=== PATIENT | female | born 1955 | race Caucasian/White ===

== ENCOUNTER 2025-09-03 13:55 | Outpatient (REF) | payer BC, MEDICARE, SELFPAY ==
[2025-09-03 15:20] LABS: MANUAL DIFF FLAG NO
[2025-09-03 18:12] LABS: Appearance Urine Cloudy; Glucose Urine UA Negative (Negative); PH 5.5 (5.0-9.0); Specific Gravity - Urine 1.015 (1.005-1.025); UMIC TRIGGER UACC YES
[2025-09-03 18:16] LABS: UACC Culture Trigger YES
[2025-09-03 18:21] LABS: Hematocrit 27.2 % (37.0-47.0); Hemoglobin 9.3 g/dl (12.0-16.0); Imm Gran Abs Auto 0.01 X10*3/uL (0.00-0.03); Imm Gran Pct Auto 0.2 % (0.0-0.4); Lymphocytes Absolute Auto 1.2 X10*3/uL (1.2-4.9); Mean Corpuscular HGB Conc 34.2 g/dl (31.0-35.0); Mean Corpuscular Hemoglobin 33.3 pg (27.0-33.0); Mean Corpuscular Volume 97.5 fL (80.0-98.0); NRBC Abs Auto 0.000 X10*3/uL (0.0-0.012); NRBC Pct Auto 0.0 /100WBC (0.0-0.2); Platelet Count 213 X10*3/uL (160-400); Red Blood Count 2.79 X10*6/uL (4.20-5.50); White Blood Count 6.1 X10*3/uL (4.8-10.8)
[2025-09-03 18:51] LABS: Alanine Aminotransferase 43 U/L (0-31); Albumin Level 4.3 g/dL (3.5-5.0); Alkaline Phosphatase 88 U/L (39-117); Anion Gap 14 (12-20); Aspartate Amino Transferase 35 U/L (5-31); Blood Urea Nitrogen 53 mg/dL (9-16); Calcium 9.7 mg/dL (8.4-10.2); Carbon Dioxide 24 mmol/L (22-29); Chloride 107 mmol/L (96-108); Cholesterol 153 mg/dL (<200); Estimated Glomerular Filt Rate 18; HDL Cholesterol 39 mg/dL (>40); Magnesium 2.1 mg/dL (1.6-2.6); Potassium 4.7 mmol/L (3.3-5.1); Sodium 140 mmol/L (135-145); Total Protein 7.3 g/dL (6.5-8.0); Triglycerides 193 mg/dL (<150)
[2025-09-03 19:05] LABS: Folate 15.5 ng/mL (> or = 4.0); Vitamin B12 434 pg/mL (200-900)
--- OUTSIDE RECORDS SUMMARY | 2025-09-04 05:54 | XMS_ITS | Clinical Summary ---
Author Organization [facility] Address [address] [place] [address] Care Team Providers Care Principal Librarian Name Role Phone Unavailable Primary Care Provider Unavailabl e Allergies No known active allergies Medications Medication Sig Dispensed Refills Start Date End Date Status acetaminophen (TYLENOL) 325 MG tablet Take 2 tablets (650 mg total) by mouth every 6 (six) hours as needed for pain. 120 tablet 0 02/20/2021 Active OneTouch Delica Lancets 33G MISC Test 2 to 3 times a day 100 each 3 09/02/2021 Active glucose blood test strip Use as instructed 100 each 12 09/02/2021 Active bumetanide (BUMEX) 2 MG tablet TAKE 2 TABLETS (4 MG TOTAL) BY MOUTH DAILY. 180 tablet 3 12/02/2023 Active Insulin Pen Needle (BD Pen Needle Sabina U/F) 32G X 4 MM MISCIndications:Typ e 2 diabetes mellitus with hyperglycemia, without long-term current use of insulin ([facility]) 1 cartridge by Does not apply route daily. 100 each 6 01/11/2024 Active Tresiba FlexTouch 100 UNIT/ML SOPN INJECT 12 UNITS UNDER THE SKIN DAILY. 15 mL 3 03/31/2024 Active atorvastatin (LIPITOR) tablet 20 mg TAKE 1 TABLET BY MOUTH EVERY DAY IN THE EVENING 90 tablet 3 03/31/2024 Active spironolactone (ALDACTONE) tablet 50 mgIndications:Prima ry hypertension,Pure hypercholesterolemi a,Chronic diastolic congestive heart failure (HCC),Bilateral leg edema,Abnormal EKG,Bifascicular block Take 1 tablet (50 mg total) by mouth daily. 90 tablet 3 07/06/2024 Active metoprolol succinate (TOPROL-XL) 24 hr tablet 50 mgIndications:Prima ry hypertension,Pure hypercholesterolemi a,Chronic diastolic congestive heart failure (HCC),Bilateral leg edema,Abnormal EKG,Bifascicular block Take 1 tablet (50 mg total) by mouth daily. 90 tablet 3 07/06/2024 Active Active Problems Problem Noted Date Diagnosed Date Type 2 diabetes mellitus wit h hyperglycemia, without long-term current use of insulin 09/02/2021 CHF (congestive heart failur e), NYHA class II, chronic, diastolic 04/09/2021 Pain 04/09/2021 CHF (congestive heart failur e), NYHA class I, acute on chronic, combined 04/09/2021 Charcot ankle, right 02/18/2021 Septic arthritis of right ankle 02/18/2021 Ankle pain 02/14/2021 Resolved Problems Problem Noted Date Diagnosed Date Resolved Date Diabetes mellitus due to und erlying condition with cardiac complication 04/11/2021 09/02/2021 Social History Tobacco Use Types Packs/Day Years Used Date Smoking Tobacco: Never Passive Smoke Exposure: Never Smokeless Tobacco: Never Tobacco Cessation:Counseling Given: Not Answered Alcohol Use Standard Drinks/Week Comments Not Currently 0 (1 standard drink = 0.6 oz pur e alcohol) Sex and Gender Information Value Date Recorded Sex Assigned at Female 03/06/2021 10:59 AM EDT Gender Identity Female 03/06/2021 10:59 AM EDT Sexual Orientation Not on file Job Start Date Occupation Industry Not on file Not on file Not on file Last Filed Vital Signs Vital Sign Reading Time Taken Comments Blood Pressure 140/82 09/05/2024 3:01 PM EST Pulse 82 09/05/2024 3:01 PM EST Temperature 36.4 C (97.6 F) 11/17/2022 11:08 AM EST Respiratory Rate 18 05/21/2021 1:26 PM EDT Oxygen Saturation 100% 09/05/2024 3:01 PM EST Inhaled Oxygen Concentration - - Weight 66.2 kg (146 lb) 09/05/2024 3:01 PM EST Height 165.1 cm (5' 5 ) 09/05/2024 3:01 PM EST Body Mass Index 24.3 09/05/2024 3:01 PM EST Plan of Treatment Health Maintenance Due Date Last Done Comments Hepatitis C Screening 1954 Pneumococcal Vaccine (1 of 2 - PCV) 1960 Depression Screening 1966 Diabetes: Eye Exam (No Retinopathy) 1972 Diabetes: Foot Exam 1972 Diabetes: Microalbumin Test 1972 Preventative Health Evaluation 1972 DTap / Tdap / Td (1 - Tdap) 1973 Colon Cancer Screening (Colonoscopy) 12/17/1999 Breast Cancer Screening (Mammogram) 2004 Fall Risk Assessment 12/17/2019 Osteoporosis Screening (DEXA Scan) 12/17/2019 Shingrix-Zoster Vaccine (2 of 2) 10/20/2021 08/25/2021 Hemoglobin A1C Due 03/05/2025 09/05/2024, 0 01/11/2024, 04/27/2023, Additional history exists COVID-19 Vaccine (2 - season) 2025 08/11/2021 Influenza Vaccine (#1) 2025 RSV Adult > 60+ Yrs or (1 - 1-dose 75+ series) 2029 Hepatitis B Vaccines Aged Out No long er eligible based on patient's age to complete this topic RSV Ped < 20 months Aged Out No longe r eligible based on patient's age to complete this topic Medical Devices Explanted 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 Device 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 Shelf Expiration Date Model / Serial / Lot Pin Bazine Edna Ii 180mm 50mm 5mm Threaded Stainless Steel - [id number] - [id number] Implanted:Qty: 2 on 02/15/2021 by Nanda Curiel MD at [facility] [place] [facility] Explanted:Qty: 2 on 04/09/2021 at [facility] [place] [facility] [employer] [id number] / / Description:Not present at t radha of surgery Pin Fixation Bazine Transfix L300 Mm L40 Mm Od5\6 Mm Self Dril - [id number] - [id number] Implanted:Qty: 1 on 02/15/2021 by Nanda Curiel MD at [facility] [place] [facility] Explanted:Qty: 1 on 04/09/2021 at [facility] [place] [facility] [employer] [id number] / / Description:Not present at s tart of surgery K Wire Implanted:Qty: 7 on 02/19/2021 by Nanda Curiel MD at [facility] [place] [facility] Explanted:Qty: 7 on 04/09/2021 by Nanda Curiel MD at [facility] [place] [facility] Right: [employer] [id number] / / [place] Wire Implanted:Qty: 3 on 02/19/2021 by Nanda Curiel MD at [facility] [place] [facility] Explanted:Qty: 3 on 04/09/2021 by Nanda Curiel MD at [facility] [facility] Right: [employer] ORTHOFIX [id number] / / Advance Directives For more information, please contact: [phone] Documents on File Type Date Recorded 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 Full Code 02/15/2021 9:30 AM 02/18/2021 10:40 AM This c ode status was ascertained in the following way: discussion with patient . Full Code 02/14/2021 2:28 PM 02/15/2021 9:30 AM This c ode status was ascertained in the following way: discussion with patient .
--- OUTSIDE RECORDS SUMMARY | 2025-09-04 05:56 | XMS_ITS ---
Author Organization [facility] Address [address] [place] [address] Phone Care Team Providers Care Burlesque Dancer Name Role Phone Gage Lowe MD Primary Care Provider [phone] Transitional Care Management Status:Identified (Enrolling) Start date:08/07/2025 Enrollment reason:Identified using hospital discharge data Related social drivers of health:[facility] Health Literacy Case Team Name Relationship Phone Harrison Urena LPN(Responsible Staff) Seal Mixing Operator Continued Care and Services Coordination
--- OUTSIDE RECORDS SUMMARY | 2025-09-04 05:56 | XMS_ITS | Clinical Summary ---
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 30 each 08/07/20 25 025 Active atorvastatin (LIPITOR) 20 mg tablet Take 1 tablet (20 mg total) by mouth 1 (one) time each day in the evening. 30 each 08/07/20 25 025 Active metoprolol succinate (TOPROL-XL) 100 mg 24 hr tablet Take 1 tablet (100 mg total) by mouth 1 (one) time each day. Do not crush or chew. 30 each 08/07/20 25 025 Active pantoprazole (PROTONIX) 40 mg EC tablet Take 1 tablet (40 mg total) by mouth 1 (one) time each day before breakfast. Do not crush, chew, or split. 30 each 08/08/20 25 025 Active docusate sodium (COLACE) 100 mg capsule Take 1 capsule (100 mg total) by mouth 2 (two) times a day. 60 each 08/07/20 25 025 Active hydrALAZINE (APRESOLINE) 25 mg tablet Take 1 tablet (25 mg total) by mouth every 8 (eight) hours. 90 each 08/07/20 25 Active multivitamin tablet Take 1 tablet by mouth 1 (one) time each day. 30 each 08/07/20 25 Active senna (SENOKOT) 8.6 mg tablet Take 2 tablets (17.2 mg total) by mouth at bedtime. 60 each 08/07/20 25 Active metoprolol succinate (TOPROL-XL) 100 mg 24 hr tablet Take 1 tablet (100 mg total) by mouth 1 (one) time each day. Do not crush or chew. 30 each 04/05/20 25 Discontinued atorvastatin (LIPITOR) 20 mg tablet TAKE 1 TABLET BY MOUTH EVERY DAY IN THE EVENING 90 tablet 2 05/16/20 Discontinued aspirin 81 mg EC tablet Take 1 tablet (81 mg total) by mouth 1 (one) time each day. 07/23/20 Discontinued pantoprazole (PROTONIX) 40 mg EC tablet Take 1 tablet (40 mg total) by mouth 2 (two) times a day for 14 days. Do not crush, chew, or split. 07/22/20 Discontinued(S top Taking at Discharge) Active Problems Problem Noted Date Diagnosed Date Cerebrovascular accident (CV A) due to stenosis of left posterior cerebral artery ([facility] V24, [facility] V28) 07/22/2025 CVA (cerebral vascular accident) ([facility] V24, [facility] V28) 07/22/2025 Altered mental status, unspe cified altered mental status type 07/20/2025 Syncope 07/19/2025 Hypokalemia 04/03/2025 CHERYL (acute kidney injury) ([facility] V24) 03/27/20 Resolved Problems Problem Noted Date Diagnosed Date Resolved Date Hypercalcemia 04/03/2025 04/03/2025 Hypophosphatemia 04/03/2025 04/04/2025 Encounters Date Type Department Care Team Description 08/01/2025 [facility] [address] [place] [phone] 07/25/2025 Plan of Care Documentation [facility] [address] [place] [phone] 07/22/2025 4:47 PM EDT - 08/07/2025 11:45 AM EDT Hospital Encounter [facility] [address] [place] [phone] Rosalee Jones DO Discharge Disposition: Home-Health Care Svc 07/19/2025 2:25 PM EDT - 07/22/2025 4:37 PM EDT Hospital Encounter [facility] [address] [place] [phone] Mina Dykes MD Santoyo-Pachec o, Omar D, MD Alam, Aroosa, MD Altered mental status, unspecified altered mental status type (Primary Dx); Pericardial effusion; Cerebrovascular accident (CVA), unspecified mechanism ([facility] V24, [facility] V28); Cerebrovascular accident (CVA) due to stenosis of left posterior cerebral artery ([facility] V24, [facility] V28) Discharge Disposition: Rehab Facility from Last 3 Months Surgical History Surgery Date Site/Laterality Comments INCISION AND DRAINAGE FOOT 02/15/2021 Right PROCEDURE:INCISION AND DRAINAGE FOOT;COMMENT:Procedure: I&D RIGHT ANKLE; Surgeon: Nanda Curiel MD; Location: [facility]; Service: Orthopedic Trauma; Laterality: Right; EXTERNAL FIXATION FOOT FRACTURE 02/15/2021 Right PROCEDURE:EXTERNAL FIXATION FOOT FRACTURE;COMMENT:Procedure: APPLICATION EXTERNAL FIXATION RIGHT ANKLE; Surgeon: Nanda Curiel MD; Location: [facility]; Service: Orthopedic Trauma; Laterality: Right; INCISION AND DRAINAGE OF WOUND 02/18/2021 Right PROCEDURE:INCISION AND DRAINAGE OF WOUND;COMMENT:Procedure: I&D ANKLE; Surgeon: Mic Romero MD; Location: [facility]; Service: Orthopedic Trauma; Laterality: Right; EXTERNAL FIXATOR APPLICATION 02/19/2021 Right PROCEDURE:EXTERNAL FIXATOR APPLICATION;COMMENT:Procedure : I&D RIGHT ANKLE WITH FIXATION; Surgeon: Nanda Curiel MD; Location: [facility]; Service: Orthopedic Trauma; Laterality: Right; ANKLE FUSION 02/19/2021 Right PROCEDURE:ANKLE FUSION;COMMENT:Procedure: ARTHRODESIS ANKLE; Surgeon: Nanda Curiel MD; Location: [facility]; Service: Orthopedic Trauma; Laterality: Right; SECTION PROCEDURE: SECTION EXTERNAL FIXATION FOOT FRACTURE 04/09/2021 Right PROCEDURE:EXTERNAL FIXATION FOOT FRACTURE;COMMENT:Procedure: RIGHT REVISION MULTIPLANAR EXTERNAL FIXATION RIGHT ANKLE; Surgeon: Nanda Curiel MD; Location: [facility]; Service: Orthopedic Trauma; Laterality: Right; Medical History Medical History Date Comments GERD (gastroesophageal reflux disease) DX:GERD (gastroesophageal reflux disease) Hypertension DX:Hypertension Anxiety DX:Anxiety Depression DX:Depression Diabetes mellitus, type II ( [facility] V24, [facility] V28) DX:Diabetes mellitus, type I I ([facility]) Hypercalcemia 04/03/2025 Social History Tobacco Use Types Packs/Day Years Used Date Smoking Tobacco: Never Smokeless Tobacco: Never Tobacco Cessation:Counseling Given: No Alcohol Use Standard Drinks/Week Comments Never 0 (1 standard drink = 0.6 oz pur e alcohol) Housing Instability Answer Date Recorde d Are you worried that in the next 2 months you may not have stable housing? No 03/28/2025 Food Access & Nutrition Answer Date Rec orded Do you have access to a vari ety of food including fruits and vegetables? Yes 03/28/2025 Access to Healthcare Answer Date Record ed Within the last 3 months, ho w many times did you visit the emergency department for your medical care? 0 03/28/2025 Health Literacy Answer Date Recorded How often do you need to hav e someone help you when you read instructions, pamphlets, or other written material from your doctor or pharmacy? Always 08/06/2025 Caregiver: How often do you need to have someone help you when you read instructions, pamphlets, or other written material from your doctor or pharmacy? Not on file 08/06/2025 Financial Risk Answer Date Recorded How hard is it for you to pa y for the very basics like food, housing, medical care, and air conditioning / heating? Not very hard 03/28/2025 Transportation Answer Date Recorded Has the lack of transportati on kept you from meetings, work, or from getting things needed for daily living? No Has the lack of transportati on kept you from medical appointments or from getting medications? No 07/23/2025 Social Isolation Answer Date Recorded How often do you feel lonely or isolated from th ose around you? Rarely 08/06/2025 Food Risk Answer Date Recorded Within the past 12 months we worried whether our food would run out before we got money to buy more. Never true 08/03/2025 Within the past 12 months th e food we bought just didn't last and we didn't have money to get more. Never true 08/03/2025 Dependent Care Answer Date Recorded Do you need help finding or paying for care for your loved ones. For example, children's attendant or elderly care for an older adult? No 03/28/2025 Education Answer Date Recorded Do you think completing more education or training, like finishing a GED, going to college, or learning a trade, would be helpful for you? N/A 03/28/2025 Employment and Income Answer Date Recor ded During the last four weeks, have you been actively looking for work? No 03/28/2025 Living Situation Answer Date Recorded What is your living situation? Unrecognized valu e 03/28/2025 Interpersonal Safety Answer Date Record ed Physical Abuse Unrecognized value 07/22/2025 Verbal Abuse Unrecognized value 07/22/2025 Comments No Sex and Gender Information Value Date Recorded Sex Assigned at Female 07/20/2025 3:03 PM EDT Legal Sex Female 8:57 PM EST Gender Identity Female 07/20/2025 3:03 PM EDT Sexual Orientation Choose not to disclose 2024 3:03 PM EDT Obstetrics History Last Filed Vital Signs Vital Sign Reading Time Taken Comments Blood Pressure 97/59 08/07/2025 7:43 AM EDT Pulse 66 08/07/2025 7:43 AM EDT Temperature 36.9 C (98.4 F) 08/07/2025 7:43 AM EDT Respiratory Rate 16 08/07/2025 7:43 AM EDT Oxygen Saturation 100% 08/07/2025 7:43 AM EDT Inhaled Oxygen Concentration - - Weight 60.8 kg (134 lb) 07/28/2025 9:10 AM EDT Height 162.6 cm (5' 4.02 ) 07/21/2025 3:17 PM ED T Body Mass Index 22.99 07/21/2025 3:17 PM EDT Plan of Treatment Upcoming Encounters Date Type Department Care Team (Late st Contact Info) Description 09/12/2025 4:30 PM EST Office Visit [facility] [place] [address] [facility] [address] [place] [phone] Malachi Mccormack MD [address] [facility] [address] [place] [address] Health Maintenance Due Date Last Done Comments Breast Cancer Screening 1954 Diabetes: Annual Foot Exam 1964 Diabetes: Annual Retina Eye Exam 1964 DTaP,Tdap,and Td Vaccines (1 - Tdap) 1973 RSV Immunization Adult Patients (1 - Risk 50-74 years 1-dose series) 2004 Hepatitis C Screening 09/24/2022 Medicare Annual Wellness Visit 09/24/2022 Osteoporosis Screening (Bone Density Screening) 09/24/2022 COVID-19 Vaccine ( season) 2025 07/01/2022, 08/11/2021, 10/28/2020, Additional history exists Influenza Vaccine (#1) 2025 , 07/13/2023, 07/22/2022, Additional history exists Diabetes: Blood Sugar Control Test (HGBA1C) 01/17/2026 07/19/2025, 03/20/2025, 09/05/2024, Additional history exists Colorectal Cancer Screening: Stool Based Tests (FOBT/FIT) 03/29/2026 03/29/2025 Falls Risk Assessment 08/06/2026 08/06/2025 Social Influencers of Health Screening 08/06/2026 08/06/2025 Hypertension/CHF/CAD Annual BMP Blood Test 08/07/2026 08/07/2025, 08/06/2025, 08/03/2025, Additional history exists Cholesterol Screening (Lipid Panel) 07/20/2030 07/20/2025, 09/13/2024, 04/12/2021 Zoster Vaccines Completed 07/22/2022, 08/25/2021 Pneumococcal Vaccine: 50+ Years Completed 07/13/2023 Depression Screening Completed 08/06/2025 HIB Vaccines Aged Out No longer eligi ble based on patient's age to complete this topic HPV Vaccines Aged Out No longer eligi ble based on patient's age to complete this topic Hepatitis A Vaccines Aged Out No long er eligible based on patient's age to complete this topic Hepatitis B Vaccines Aged Out No long er eligible based on patient's age to complete this topic IPV Vaccines Aged Out No longer eligi ble based on patient's age to complete this topic MMR Vaccines Aged Out No longer eligi ble based on patient's age to complete this topic Meningococcal ACWY Vaccine Aged Out N o longer eligible based on patient's age to complete this topic Meningococcal B Vaccine Aged Out No l onger eligible based on patient's age to complete this topic RSV Immunization Patients Under 20 months Aged Out No longer eligible based on patient's age to complete this topic Varicella Vaccines Aged Out No longer eligible based on patient's age to complete this topic Procedures Procedure Name Priority Date/Time Associated Diagnosis Comments POCT GLUCOSE BLOOD Routine 08/07/2025 7: 15 AM EDT MAGNESIUM Routine 08/07/2025 6:33 AM EDT BASIC METABOLIC PANEL Routine 08/07/2025 6:33 AM EDT LAVENDER - EDTA Routine 08/07/2025 6:30 AM EDT EXTRA TUBES Routine 08/07/2025 6:30 AM EDT POCT GLUCOSE BLOOD Routine 08/06/2025 8: 35 PM EDT POCT GLUCOSE BLOOD Routine 08/06/2025 3: 45 PM EDT POCT GLUCOSE BLOOD Routine 08/06/2025 11 :05 AM EDT POCT GLUCOSE BLOOD Routine 08/06/2025 7: 14 AM EDT CBC WITH AUTO DIFFERENTIAL Routine 08/06/2025 5:14 AM EDT CBC AND DIFFERENTIAL Routine 08/06/2025 5:14 AM EDT BASIC METABOLIC PANEL Routine 08/06/2025 5:14 AM EDT POCT GLUCOSE BLOOD Routine 08/05/2025 7: 59 PM EDT POCT GLUCOSE BLOOD Routine 08/05/2025 4: 14 PM EDT POCT GLUCOSE BLOOD Routine 08/05/2025 11 :03 AM EDT POCT GLUCOSE BLOOD Routine 08/05/2025 7: 36 AM EDT POCT GLUCOSE BLOOD Routine 08/04/2025 8: 07 PM EDT POCT GLUCOSE BLOOD Routine 08/04/2025 4: 06 PM EDT POCT GLUCOSE BLOOD Routine 08/04/2025 11 :03 AM EDT POCT GLUCOSE BLOOD Routine 08/04/2025 7: 54 AM EDT POCT GLUCOSE BLOOD Routine 08/03/2025 7: 34 PM EDT POCT GLUCOSE BLOOD Routine 08/03/2025 4: 28 PM EDT POCT GLUCOSE BLOOD Routine 08/03/2025 11 :12 AM EDT POCT GLUCOSE BLOOD Routine 08/03/2025 7: 22 AM EDT LAVENDER - EDTA Routine 08/03/2025 5:49 AM EDT EXTRA TUBES Routine 08/03/2025 5:49 AM EDT BASIC METABOLIC PANEL Routine 08/03/2025 5:49 AM EDT POCT GLUCOSE BLOOD Routine 08/02/2025 8: 32 PM EDT POCT GLUCOSE BLOOD Routine 08/02/2025 4: 27 PM EDT POCT GLUCOSE BLOOD Routine 08/02/2025 11 :24 AM EDT POCT GLUCOSE BLOOD Routine 08/02/2025 7: 47 AM EDT POCT GLUCOSE BLOOD Routine 08/01/2025 8: 12 PM EDT POCT GLUCOSE BLOOD Routine 08/01/2025 4: 13 PM EDT POCT GLUCOSE BLOOD Routine 08/01/2025 11 :04 AM EDT POCT GLUCOSE BLOOD Routine 08/01/2025 7: 29 AM EDT POCT GLUCOSE BLOOD Routine 07/31/2025 8: 23 PM EDT POCT GLUCOSE BLOOD Routine 07/31/2025 4: 15 PM EDT POCT GLUCOSE BLOOD Routine 07/31/2025 11 :22 AM EDT POCT GLUCOSE BLOOD Routine 07/31/2025 7: 25 AM EDT POCT GLUCOSE BLOOD Routine 07/30/2025 8: 19 PM EDT POCT GLUCOSE BLOOD Routine 07/30/2025 4: 33 PM EDT POCT GLUCOSE BLOOD Routine 07/30/2025 11 :22 AM EDT POCT GLUCOSE BLOOD Routine 07/30/2025 7: 38 AM EDT MAGNESIUM Routine 07/30/2025 5:56 AM EDT BASIC METABOLIC PANEL Routine 07/30/2025 5:56 AM EDT COMPLETE BLOOD COUNT Routine 07/30/2025 5:56 AM EDT POCT GLUCOSE BLOOD Routine 07/29/2025 7: 53 PM EDT POCT GLUCOSE BLOOD Routine 07/29/2025 3: 58 PM EDT POCT GLUCOSE BLOOD Routine 07/29/2025 11 :09 AM EDT POCT GLUCOSE BLOOD Routine 07/29/2025 7: 29 AM EDT POCT GLUCOSE BLOOD Routine 07/28/2025 8: 07 PM EDT POCT GLUCOSE BLOOD Routine 07/28/2025 4: 44 PM EDT POCT GLUCOSE BLOOD Routine 07/28/2025 11 :23 AM EDT POCT GLUCOSE BLOOD Routine 07/28/2025 7: 20 AM EDT POCT GLUCOSE BLOOD Routine 07/27/2025 8: 22 PM EDT POCT GLUCOSE BLOOD Routine 07/27/2025 4: 22 PM EDT LAURA URINE CULTURE TUBE Routine 07/27/2025 11:03 AM EDT URINALYSIS WITH REFLEX MICROSCOPIC AND CULTURE Routine 07/27/2025 11:03 AM EDT URINALYSIS WITH REFLEX MICROSCOPIC AND CULTURE Routine 07/27/2025 11:03 AM EDT POCT GLUCOSE BLOOD Routine 07/27/2025 11 :02 AM EDT POCT GLUCOSE BLOOD Routine 07/27/2025 7: 32 AM EDT COMPLETE BLOOD COUNT Routine 07/27/2025 5:24 AM EDT COMPREHENSIVE METABOLIC PANEL Routine 07/27/2025 5:24 AM EDT POCT GLUCOSE BLOOD Routine 07/26/2025 8: 21 PM EDT POCT GLUCOSE BLOOD Routine 07/26/2025 4: 12 PM EDT POCT GLUCOSE BLOOD Routine 07/26/2025 11 :16 AM EDT POCT GLUCOSE BLOOD Routine 07/26/2025 9: 03 AM EDT POCT GLUCOSE BLOOD Routine 07/26/2025 7: 42 AM EDT POCT GLUCOSE BLOOD Routine 07/25/2025 4: 10 PM EDT XR ABDOMEN 1 VIEW Routine 07/25/2025 2:4 3 PM EDT POCT GLUCOSE BLOOD Routine 07/25/2025 11 :26 AM EDT POCT GLUCOSE BLOOD Routine 07/25/2025 7: 29 AM EDT MAGNESIUM Routine 07/25/2025 5:24 AM EDT BASIC METABOLIC PANEL Routine 07/25/2025 5:24 AM EDT COMPLETE BLOOD COUNT Routine 07/25/2025 5:24 AM EDT POCT GLUCOSE BLOOD Routine 07/24/2025 3: 56 PM EDT POCT GLUCOSE BLOOD Routine 07/24/2025 11 :02 AM EDT POCT GLUCOSE BLOOD Routine 07/24/2025 7: 39 AM EDT POCT GLUCOSE BLOOD Routine 07/23/2025 4: 16 PM EDT POCT GLUCOSE BLOOD Routine 07/23/2025 11 :14 AM EDT POCT GLUCOSE BLOOD Routine 07/23/2025 7: 38 AM EDT CBC WITH AUTO DIFFERENTIAL Routine 07/23/2025 6:45 AM EDT COMPREHENSIVE METABOLIC PANEL Routine 07/23/2025 6:45 AM EDT CBC AND DIFFERENTIAL Routine 07/23/2025 6:45 AM EDT POCT GLUCOSE BLOOD Routine 07/22/2025 8: 04 PM EDT POCT GLUCOSE BLOOD Routine 07/22/2025 5: 23 PM EDT POCT GLUCOSE BLOOD Routine 07/22/2025 10 :[address] HEAD WO CONTRAST STAT 07/22/2025 9 :08 AM EDT PREPARE RBC Routine 07/22/2025 8:43 AM EDT CBC WITH AUTO DIFFERENTIAL Routine 07/22/2025 5:59 AM EDT TYPE AND SCREEN Routine 07/22/2025 5:59 AM EDT MAGNESIUM Timed 07/22/2025 5:59 AM EDT CBC AND DIFFERENTIAL Routine 07/22/2025 5:59 AM EDT COMPREHENSIVE METABOLIC PANEL Timed 07/22/2025 5:59 AM EDT POCT GLUCOSE BLOOD Routine 07/22/2025 4: 57 AM EDT POCT GLUCOSE BLOOD Routine 07/21/2025 8: 51 PM EDT POCT GLUCOSE BLOOD Routine 07/21/2025 7: 49 PM EDT POCT GLUCOSE BLOOD Routine 07/21/2025 4: [address] HEAD WO CONTRAST STAT 07/21/2025 2 :43 PM EDT HEMOGLOBIN AND HEMATOCRIT Timed 07/21/2025 10:32 AM EDT POCT GLUCOSE BLOOD Routine 07/21/2025 9: 01 AM EDT CBC WITH AUTO DIFFERENTIAL Routine 07/21/2025 5:49 AM EDT MAGNESIUM Timed 07/21/2025 5:49 AM EDT CBC AND DIFFERENTIAL Routine 07/21/2025 5:49 AM EDT COMPREHENSIVE METABOLIC PANEL Timed 07/21/2025 5:49 AM EDT POCT GLUCOSE BLOOD Routine 07/21/2025 5: 42 AM EDT POCT GLUCOSE BLOOD Routine 07/21/2025 12 :05 AM EDT HEMOGLOBIN AND HEMATOCRIT Timed 07/20/2025 9:56 PM EDT POCT GLUCOSE BLOOD Routine 07/20/2025 8: 58 PM EDT LAURA URINE CULTURE TUBE Routine 07/20/2025 5:31 PM EDT URINALYSIS WITH REFLEX MICROSCOPIC AND CULTURE Routine 07/20/2025 5:31 PM EDT URINALYSIS WITH REFLEX MICROSCOPIC AND CULTURE Routine 07/20/2025 5:31 PM EDT CULTURE URINE Routine 07/20/2025 5:31 PM EDT POCT GLUCOSE BLOOD Routine 07/20/2025 5: 19 PM EDT MR ANGIO HEAD WO CONTRAST Routine 07/20/2025 5:12 PM EDT TRANSTHORACIC ECHOCARDIOGRAM (TTE) COMPLETE W/ CONTRAST Routine 07/20/2025 3:55 PM EDT Pericardial effusion HEMOGLOBIN AND HEMATOCRIT Timed 07/20/2025 2:00 PM EDT MR BRAIN WO CONTRAST Routine 07/20/2025 1:15 PM EDT VAS US DUPLEX CAROTID BILATERAL Routine 07/20/2025 12:53 PM EDT Cerebrovascular accident (CVA), unspecified mechanism (CMS/HCC V24, CMS/HCC V28) POCT GLUCOSE BLOOD Routine 07/20/2025 11 :[address] HEAD WO CONTRAST STAT 07/20/2025 9 :07 AM EDT POCT GLUCOSE BLOOD Routine 07/20/2025 8: 49 AM EDT ROUTINE EEG Routine 07/20/2025 8:38 AM EDT Altered mental status, unspecified altered mental status type LIPID PANEL WITH REFLEX TO DIRECT LDL Add-On 07/20/2025 5:50 AM EDT CBC WITH AUTO DIFFERENTIAL Routine 07/20/2025 5:50 AM EDT CBC AND DIFFERENTIAL Routine 07/20/2025 5:50 AM EDT MAGNESIUM Routine 07/20/2025 5:50 AM EDT BASIC METABOLIC PANEL Routine 07/20/2025 5:50 AM EDT POCT GLUCOSE BLOOD Routine 07/20/2025 2: 50 AM EDT POCT GLUCOSE BLOOD Routine 07/19/2025 10 :26 PM EDT POCT GLUCOSE BLOOD Routine 07/19/2025 10 :07 PM EDT URINALYSIS WITH REFLEX MICROSCOPIC STAT 07/19/2025 8:53 PM EDT URINALYSIS WITH REFLEX MICROSCOPIC STAT 07/19/2025 8:53 PM EDT HEMOGLOBIN A1C Add-On 07/19/2025 8:33 PM EDT LAVENDER - EDTA Routine 07/19/2025 8:33 PM EDT LT BLUE - NA CITRATE Routine 07/19/2025 8:33 PM EDT EXTRA TUBES Routine 07/19/2025 8:33 PM EDT TROPONIN I HIGH SENSITIVITY STAT 07/19/2025 8:[address] ABDOMEN PELVIS W CONTRAST STAT 07/19/2025 6:06 PM EDT THYROID STIMULATING HORMONE WITH REFLEX TO FREE T4 AND FREE T3 STAT 07/19/2025 4:56 PM EDT COMPREHENSIVE METABOLIC PANEL STAT 07/19/2025 4:[address] HEAD WO CONTRAST STAT 07/19/2025 4 :05 PM EDT CBC WITH AUTO DIFFERENTIAL STAT 07/19/2025 2:54 PM EDT CALCIUM, IONIZED STAT 07/19/2025 2:54 PM EDT CBC AND DIFFERENTIAL STAT 07/19/2025 2:54 PM EDT ECG 12-LEAD STAT 07/19/2025 2:52 PM EDT OCCULT BLOOD STOOL, GUAIAC Routine 03/29/2025 11:04 PM EDT from Last 3 Months or Most Recently Relevant to Health Maintenance Results * (ABNORMAL) POCT Glucose, blood (08/07/2025 7:15 AM EDT) Only the most recent of76 resultswithin the time period is included. [facility] Glucose POCT 132(H) 70 - 100 mg/dL 08/07/2025 7:15 AM EDT [facility] Blood Capillary blood specimen / Unknown 08/07/2025 7:15 AM EDT 08/07/2025 7:17 AM EDT Rosalee Jones DO LAB POINT OF CARE TEST DOCKED DEVICE UNSOLICITED RESULTS Final Result Performing Organization Address [facility]/ZIP Co de Phone Number [facility] [address] [place] [address], * Magnesium (08/07/2025 6:33 AM EDT) Only the most recent of6 resultswithin the time period is included. [facility] Magnesium 2.0 1.9 - 2.6 mg/dL LAB CHEMISTRY METHOD 08/07/2025 8:12 AM EDT [facility] Blood Venous blood specimen / Unknown Venipuncture / Unknown 08/07/2025 6:33 AM EDT 08/07/2025 7:18 AM EDT Yuliana Brizuela NP LAB BLOOD ORDERABLES Final Result Performing Organization Address City/[facility]/ZIP Co de Phone Number [facility] [address] [place] [address], [place] [phone] * (ABNORMAL) Basic metabolic panel (08/07/2025 6:33 AM EDT) Only the most recent of6 resultswithin the time period is included. [facility] Sodium 140 133 - 145 mmol/L LAB CHEMISTRY METHOD 08/07/2025 8:12 AM [facility] Potassium 5.1 3.5 - 5.5 mmol/L LAB CHEMISTRY METHOD 08/07/2025 8:12 AM [facility] Chloride 109 96 - 110 mmol/L LAB CHEMISTRY METHOD 08/07/2025 8:12 AM [facility] CO2 28 21 - 32 mmol/L LAB CHEMISTRY METHOD 08/07/2025 8:12 AM [facility] Anion Gap 3 3 - 11 LAB CHEMISTRY METHOD 08/07/2025 8:12 AM [facility] Glucose 125(H) 70 - 100 mg/dL LAB CHEMISTRY METHOD 08/07/2025 8:12 AM [facility] BUN 47(H) 5 - 25 mg/dL LAB CHEMISTRY METHOD 08/07/2025 8:12 AM [facility] Creatinine 2.65(H) 0.50 - 1.10 mg/dL LAB CHEMISTRY METHOD 08/07/2025 8:12 AM [facility] eGFR 19(L) >=60 mL/min/1. 73m2 LAB CHEMISTRY METHOD 08/07/2025 8:12 AM [facility] Comment:Calculation based on the Chronic Kidney Disease Epidemiology Collaboration (CKD-EPI) equation refit without adjustment for race. BUN/Creatinine Ratio 17.7 LAB CHEMISTRY METHOD 08/07/2025 8:12 AM [facility] Calcium 9.5 8.5 - 10.5 mg/dL LAB CHEMISTRY METHOD 08/07/2025 8:12 AM [facility] Blood Venous blood specimen / Unknown Venipuncture / Unknown 08/07/2025 6:33 AM EDT 08/07/2025 7:18 AM EDT Yuliana Brizuela NP LAB BLOOD ORDERABLES Final Result [facility] [address] [place] [address], [place] [phone] * Lavender tube (08/07/2025 6:30 AM EDT) Only the most recent of3 resultswithin the time period is included. [facility] Extra Tube Hold for add-ons. 08/07/2025 9:01 AM EDT [facility] Comment:Auto resulted. Blood Venous blood specimen / Unknown Venipuncture / Unknown 08/07/2025 6:30 AM EDT 08/07/2025 7:23 AM EDT Rosalee Jones DO LAB BLOOD ORDERABLES Kelsi l Result [facility] [address] [place] [address], [place] [phone] * (ABNORMAL) CBC auto differential (08/06/2025 5:14 AM EDT) Only the most recent of6 resultswithin the time period is included. [facility] WBC 4.8 4.8 - 10.8 K/mcL LAB HEMETOLOGY METHOD 08/06/2025 6:27 AM EDT [facility] RBC 3.00(L) 3.80 - 4.80 M/mcL LAB HEMETOLOGY METHOD 08/06/2025 6:27 AM EDT [facility] Hemoglobin 9.2(L) 11.5 - 16.0 g/dL LAB HEMETOLOGY METHOD 08/06/2025 6:27 AM EDT [facility] Hematocrit 29.3(L) 35.0 - 47.0 % LAB HEMETOLOGY METHOD 08/06/2025 6:27 AM EDT [facility] MCV 96.4 79.0 - 98.0 FL LAB HEMETOLOGY METHOD 08/06/2025 6:27 AM EDT [facility] [facility] MCH 30.3 27.0 - 32.0 pcg LAB HEMETOLOGY METHOD 08/06/2025 6:27 AM [facility] MCHC 31.4(L) 32.0 - 37.0 g/dL LAB HEMETOLOGY METHOD 08/06/2025 6:27 AM [facility] RDW 13.1 11.0 - 15.0 % LAB HEMETOLOGY METHOD 08/06/2025 6:27 AM [facility] Platelets 167 130 - 400 K/mcL LAB HEMETOLOGY METHOD 08/06/2025 6:27 AM [facility] MPV 12.4(H) 7.0 - 11.0 FL LAB HEMETOLOGY METHOD 08/06/2025 6:27 AM [facility] NRBC 0.0 <1.0 % LAB HEMETOLOGY METHOD 08/06/2025 6:27 AM [facility] NRBC Absolute 0.00 <0.10 K/mcL LAB HEMETOLOGY METHOD 08/06/2025 6:27 AM [facility] Neutrophils Relative 44.9 % LAB HEMETOLOGY METHOD 08/06/2025 6:27 AM [facility] Lymphocytes Relative 39.4 % LAB HEMETOLOGY METHOD 08/06/2025 6:27 AM [facility] Monocytes Relative 8.7 % LAB HEMETOLOGY METHOD 08/06/2025 6:27 AM [facility] Eosinophils Relative 5.6 % LAB HEMETOLOGY METHOD 08/06/2025 6:27 AM [facility] Basophils Relative 1.2 % LAB HEMETOLOGY METHOD 08/06/2025 6:27 AM [facility] Immature Granulocytes Relative 0.2 % LAB HEMETOLOGY METHOD 08/06/2025 6:27 AM [facility] Neutrophils Absolute 2.16 1.50 - 7.00 K/mcL LAB HEMETOLOGY METHOD 08/06/2025 6:27 AM EDT [facility] Lymphocytes Absolute 1.90 1.00 - 5.00 K/mcL LAB HEMETOLOGY METHOD 08/06/2025 6:27 AM EDT [facility] Monocytes Absolute 0.42 0.20 - 1.00 K/mcL LAB HEMETOLOGY METHOD 08/06/2025 6:27 AM EDT [facility] Eosinophils Absolute 0.27 0.00 - 0.50 K/mcL LAB HEMETOLOGY METHOD 08/06/2025 6:27 AM EDT [facility] Basophils Absolute 0.06 0.00 - 0.20 K/mcL LAB HEMETOLOGY METHOD 08/06/2025 6:27 AM EDT [facility] Immature Granulocytes Absolute 0.01 0.00 - 0.03 K/mcL LAB HEMETOLOGY METHOD 08/06/2025 6:27 AM EDT [facility] Blood Venous blood specimen / Unknown Venipuncture / Unknown 08/06/2025 5:14 AM EDT 08/06/2025 5:36 AM EDT us Rosalee Jones DO LAB BLOOD ORDERABLES Kelsi l Result [facility] [address] [place] [address], * (ABNORMAL) Complete blood count (07/30/2025 5:56 AM EDT) Only the most recent of3 resultswithin the time period is included. WBC 5.0 4.8 - 10.8 K/mcL LAB HEMETOLOGY METHOD 07/30/2025 6:15 AM EDT [facility] RBC 3.40(L) 3.80 - 4.80 M/mcL LAB HEMETOLOGY METHOD 07/30/2025 6:15 AM T [facility] Hemoglobin 9.9(L) 11.5 - 16.0 g/dL LAB HEMETOLOGY METHOD 07/30/2025 6:15 AM [facility] Hematocrit 31.0(L) 35.0 - 47.0 % LAB HEMETOLOGY METHOD 07/30/2025 6:15 AM [facility] MCV 92.5 79.0 - 98.0 FL LAB HEMETOLOGY METHOD 07/30/2025 6:15 AM [facility] MCH 29.6 27.0 - 32.0 pcg LAB HEMETOLOGY METHOD 07/30/2025 6:15 AM [facility] MCHC 31.9(L) 32.0 - 37.0 g/dL LAB HEMETOLOGY METHOD 07/30/2025 6:15 AM [facility] RDW 12.8 11.0 - 15.0 % LAB HEMETOLOGY METHOD 07/30/2025 6:15 AM [facility] Platelets 194 130 - 400 K/mcL LAB HEMETOLOGY METHOD 07/30/2025 6:15 AM [facility] MPV 10.8 7.0 - 11.0 FL LAB HEMETOLOGY METHOD 07/30/2025 6:15 AM [facility] NRBC 0.0 <1.0 % LAB HEMETOLOGY METHOD 07/30/2025 6:15 AM [facility] NRBC Absolute 0.00 <0.10 K/mcL LAB HEMETOLOGY METHOD 07/30/2025 6:15 AM [facility] Blood Venous blood specimen / Unknown Venipuncture / Unknown 07/30/2025 5:56 AM EDT 07/30/2025 6:05 AM EDT us Yuliana Brizuela NP LAB BLOOD ORDERABLES Final Result [facility] [address] [place] [address], [place] [phone] * (ABNORMAL) Urinalysis with reflex microscopic and culture (07/27/2025 11:03 AM EDT) Only the most recent of2 resultswithin the time period is included. Specific [place] Urine 1.015 1.003 - 1.030 LAB URINALYSIS - [facility]OMATED [facility], Urine 5.5 5.0 - 8.0 pH LAB URINALYSIS - AUTOMATED METHOD 07/27/2025 11:37 AM [facility] Leukocytes, Urine Negative Negative LAB URINALYSIS - AUTOMATED METHOD 07/27/2025 11:37 AM [facility] Nitrite, Urine Negative Negative LAB URINALYSIS - AUTOMATED METHOD 07/27/2025 11:37 AM [facility] Protein, Urine 100(A) <=Trace mg/dL LAB URINALYSIS - AUTOMATED METHOD 07/27/2025 11:37 AM [facility] Glucose, Urine Negative Negative mg/dL LAB URINALYSIS - AUTOMATED METHOD 07/27/2025 11:37 AM [facility] Ketones, Urine Negative Negative mg/dL LAB URINALYSIS - AUTOMATED METHOD 07/27/2025 11:37 AM [facility] Urobilinogen, Urine 0.2 0.2 - 1.0 mg/dL LAB URINALYSIS - AUTOMATED METHOD 07/27/2025 11:37 AM [facility] Bilirubin, Urine Negative Negative LAB URINALYSIS - AUTOMATED METHOD 07/27/2025 11:37 AM [facility] Blood, Urine Negative Negative LAB URINALYSIS - AUTOMATED METHOD 07/27/2025 11:37 AM EDT [facility] RBC, Urine 7.7(H) 0 - 4 /HPF LAB URINALYSIS - AUTOMATED METHOD 07/27/2025 11:37 AM EDT [facility] WBC, Urine 2.6 0 - 4 /HPF LAB URINALYSIS - AUTOMATED METHOD 07/27/2025 11:37 AM EDT [facility] Squamous Epithelial, Urine 43 0 - 60 /LPF LAB URINALYSIS - AUTOMATED METHOD 07/27/2025 11:37 AM EDT [facility] Bacteria, Urine Negative Negative /HPF LAB URINALYSIS - AUTOMATED METHOD 07/27/2025 11:37 AM EDT [facility] Hyaline Casts, Urine 1.2 0 - 3 /LPF LAB URINALYSIS - AUTOMATED METHOD 07/27/2025 11:37 AM EDT [facility] Urine Urine specimen obtained by clean catch procedure / Unknown Non-blood Collection / Unknown 07/27/2025 11:03 AM EDT 07/27/2025 11:30 AM EDT Thuy FONSECA LAB URINE ORDERABLES Final R esult [facility] [address] [place] [address], [place] [phone] * Laura urine culture tube (07/27/2025 11:03 AM EDT) Only the most recent of2 resultswithin the time period is included. Extra Tube Hold for add-ons. 07/27/2025 1:01 PM EDT [facility] Comment:Auto resulted. Urine Urine specimen obtained by clean catch procedure / Unknown Non-blood Collection / Unknown 07/27/2025 11:03 AM EDT 07/27/2025 11:30 AM EDT us Thuy FONSECA LAB URINE ORDERABLES Final R esult [facility] [address] [place] [address], * (ABNORMAL) Comprehensive metabolic panel (07/27/2025 5:24 AM EDT) Only the most recent of5 resultswithin the time period is included. Sodium 143 133 - 145 mmol/L LAB CHEMISTRY METHOD 07/27/2025 6:06 AM [facility] Potassium 3.8 3.5 - 5.5 mmol/L LAB CHEMISTRY METHOD 07/27/2025 6:06 AM [facility] Chloride 114(H) 96 - 110 mmol/L LAB CHEMISTRY METHOD 07/27/2025 6:06 AM [facility] CO2 23 21 - 32 mmol/L LAB CHEMISTRY METHOD 07/27/2025 6:06 AM [facility] Anion Gap 6 3 - 11 LAB CHEMISTRY METHOD 07/27/2025 6:06 AM [facility] Glucose 92 70 - 100 mg/dL LAB CHEMISTRY METHOD 07/27/2025 6:06 AM [facility] BUN 37(H) 5 - 25 mg/dL LAB CHEMISTRY METHOD 07/27/2025 6:06 AM [facility] Creatinine 2.21(H) 0.50 - 1.10 mg/dL LAB CHEMISTRY METHOD 07/27/2025 6:06 AM [facility] eGFR 23(L) >=60 mL/min/1. 73m2 LAB CHEMISTRY METHOD 07/27/2025 6:06 AM [facility] Comment:Calculation based on the Chronic Kidney Disease Epidemiology Collaboration (CKD-EPI) equation refit without adjustment for race. BUN/Creatinine Ratio 16.7 LAB CHEMISTRY METHOD 07/27/2025 6:06 AM [facility] Calcium 9.0 8.5 - 10.5 mg/dL LAB CHEMISTRY METHOD 07/27/2025 6:06 AM EDT [facility] AST (SGOT) 20 10 - 42 unit/L LAB CHEMISTRY METHOD 07/27/2025 6:06 AM EDT [facility] ALT (SGPT) 26 10 - 60 unit/L LAB CHEMISTRY METHOD 07/27/2025 6:06 AM T [facility] Alkaline Phosphatase 84 42 - 121 unit/L LAB CHEMISTRY METHOD 07/27/2025 6:06 AM EDT [facility] Total Protein 5.9(L) 6.0 - 8.0 g/dL LAB CHEMISTRY METHOD 07/27/2025 6:06 AM [facility] Albumin 3.2 3.2 - 5.0 g/dL LAB CHEMISTRY METHOD 07/27/2025 6:06 AM [facility] Total Bilirubin 0.4 0.0 - 1.4 mg/dL LAB CHEMISTRY METHOD 07/27/2025 6:06 AM EDT [facility] Blood Venous blood specimen / Unknown Venipuncture / Unknown 07/27/2025 5:24 AM EDT 07/27/2025 5:39 AM EDT us Thuy FONSECA LAB BLOOD ORDERABLES Final R esult [facility] [address] [place] [address], * XR Abdomen 1 View (07/25/2025 2:43 PM EDT) Anatomical Region Laterality Modality Body Radiographic Lisa ging 07/26/2025 7:51 AM EDT Impressions 07/26/2025 7:56 AM EDT Nonobstructive bowel gas pattern. There is evidence of mild constipation. Code 30615 -------- FINAL REPORT -------- Dictated By: Mic Gomez Dictated Date: 07/26/2025 07:51 ET Assigned Physician: Mic Gomez Reviewed and Electronically Signed By: Mic Gomez Signed Date: 07/26/2025 07:56 ET Workstation ID: [id number] Transcribed By: Self Edit Transcribed Date: 07/26/2025 07:51 ET Narrative 07/26/2025 7:56 AM EDT HISTORY: The patient is a 69-year-old female with constipation. FINDINGS: Supine radiographs of the abdomen demonstrate mild degenerative changes of the lumbar spine. There is evidence of calcific tendinitis of the left hip. The bowel gas pattern is nonobstructive. There is a moderate amount of fecal material in the ascending and transverse colon consistent with mild constipation. No mass is seen. A 1.4 cm oval density is present just superior to the right iliac crest, likely representing retained oral contrast material has seen on CT scan of the abdomen and pelvis performed 07/19/2025. Procedure Note Mic Gomez MD - 07/26/2025 HISTORY: The patient is a 69-year-old female with constipation. FINDINGS: Supine radiographs of the abdomen demonstrate mild degenerativechanges of the lumbar spine. There is evidence of calcific tendinitis ofthe left hip. The bowel gas pattern is nonobstructive. There is a moderateamount of fecal material in the ascending and transverse colon consistentwith mild constipation. No mass is seen. A 1.4 cm oval density is presentjust superior to the right iliac crest, likely representing retained oralcontrast material has seen on CT scan of the abdomen and pelvis [id number]. IMPRESSION: Nonobstructive bowel gas pattern. There is evidence of mildconstipation. Code 05666 -------- FINAL REPORT -------- Dictated By: Mic Gomez Dictated Date: 07/26/2025 07:51 ET Assigned Physician: Mic Gomez Reviewed and Electronically Signed By: Mic Gomez Signed Date: 07/26/2025 07:56 ET Workstation ID: [id number] Transcribed By: Self Edit Transcribed Date: 07/26/2025 07:51 ET us Rosalee Jones DO IMG XR PROCEDURES Final R esult * CT Head wo Contrast (07/22/2025 9:08 AM EDT) Only the most recent of4 resultswithin the time period is included. 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 -------- FINAL REPORT -------- Dictated By: Odessa Funk Dictated Date: 07/22/2025 09:34 ET Assigned Physician: Odessa Funk Reviewed and Electronically Signed By: Odessa Funk Signed Date: 07/22/2025 09:39 ET Workstation ID: [id number] Transcribed By: Self Edit Transcribed Date: 07/22/2025 09:34 ET Narrative 07/22/2025 9:39 AM EDT PROCEDURE: HEAD CT INDICATION: STROKE stroke f/u increased symptoms TECHNIQUE: CT of the head without intravenous contrast. Multiplanar reformats. The examination was performed utilizing dose reduction techniques. Total DLP 809 COMPARISON: No priors available. FINDINGS: Stable large infarcts in the superior bilateral cerebral hemispheres with many other smaller infarcts in the cerebellum noted. Mild scattered periventricular and subcortical white matter hypodensities are most likely related to chronic small vessel ischemic change. CSF spaces commensurate for degree of volume loss. No hydrocephalus. Trace thickening of the paranasal sinuses. Mastoid air cells are clear. No calvarial fracture. Procedure Note Odessa Funk MD - 07/22/2025 PROCEDURE: HEAD CT INDICATION: STROKE stroke f/u increased symptoms TECHNIQUE: CT of the head without intravenous contrast. Multiplanarreformats. The examination was performed utilizing dose reductiontechniques. Total DLP 809 COMPARISON: No priors available. FINDINGS: Stable large infarcts in the superior bilateral cerebral hemispheres withmany other smaller infarcts in the cerebellum noted. Mild scattered periventricular and subcortical white matter hypodensitiesare most likely related to chronic small vessel ischemic change. CSF spaces commensurate for degree of volume loss. No hydrocephalus. Trace thickening of the paranasal sinuses. Mastoid air cells are clear. No calvarial fracture. IMPRESSION: Stable large infarcts in the superior bilateral cerebral hemispheres withmany other smaller infarcts in the cerebellum noted. -------- FINAL REPORT -------- Dictated By: Odessa Funk Dictated Date: 07/22/2025 09:34 ET Assigned Physician: Odessa Funk Reviewed and Electronically Signed By: Odessa Funk Signed Date: 07/22/2025 09:39 ET Workstation ID: [id number] Transcribed By: Self Edit Transcribed Date: 07/22/2025 09:34 ET us Matilda FONSECA IMG CT PROCEDURES Final Re sult * Prepare RBC: 1 Units, Leukoreduced (07/22/2025 8:43 AM EDT) Product Code [id number] 07/22/2025 11:40 AM EDT [facility] Unit Number [id number] 07/22/20 11:40 AM EDT [facility] Crossmatch Compatible 07/22/2025 8:59 AM EDT [facility] Dispense Status Transfused 07/22/2025 11:40 AM EDT [facility] Unit ABO Rh ONEG 07/22/2025 11:40 AM EDT [facility] Unit Expiration Date Time [id number] 07/22/2025 11:40 AM EDT [facility] Unit Blood Type 9500 07/22/2025 11:40 AM EDT [facility] Blood Venous blood specimen / Unknown 07/22/2025 8:43 AM EDT 07/22/2025 6:30 AM EDT us Matilda FONSECA BLOOD BANK PRODUCT ORDERAB LES Final Result [facility] [address] [place] [address], [place] [phone] * Type and screen (07/22/2025 5:59 AM EDT) ABO Group O 07/22/2025 7:36 AM EDT [facility] Rh Type Negative 07/22/2025 7:36 AM EDT [facility] Antibody Screen Negative 07/22/2025 7:36 AM EDT [facility] Blood Venous blood specimen / Unknown Venipuncture / Unknown 07/22/2025 5:59 AM EDT 07/22/2025 6:30 AM EDT Matilda FONSECA LAB BLOOD BANK TEST ORDERA BLES Final Result Performing Organization Address [facility]/ZIP Co de Phone Number [facility] [address] [place] [address], * (ABNORMAL) Hemoglobin and hematocrit (07/21/2025 10:32 AM EDT) Only the most recent of3 resultswithin the time period is included. Hemoglobin 8.0(L) 11.5 - 16.0 g/dL LAB HEMETOLOGY METHOD 07/21/2025 10:58 AM EDT [facility] Hematocrit 25.8(L) 35.0 - 47.0 % LAB HEMETOLOGY METHOD 07/21/2025 10:58 AM EDT [facility] Blood Venous blood specimen / Unknown Venipuncture / Unknown 07/21/2025 10:32 AM EDT 07/21/2025 10:53 AM EDT us Adeel Farooq MD LAB BLOOD ORDERABLES Final Resul t Performing Organization Address City/[facility]/ZIP Co de Phone Number [facility] [address] [place] [address], * Culture urine (07/20/2025 5:31 PM EDT) Culture, Urine <10,000 cfu/mL Mixed bacterial jeanie 07/21/2025 12:47 PM EDT [facility] Urine Urine specimen obtained by clean catch procedure / Unknown Non-blood Collection / Unknown 07/20/2025 5:31 PM EDT 07/20/2025 7:02 PM EDT us Matilda FONSECA LAB MICROBIOLOGY - GENERAL ORDERABLES Final Result [facility] [address] [place] [address], [place] [phone] * MR Angio Head wo Contrast (07/20/2025 5:12 PM EDT) Anatomical Region Laterality Modality Head and Neck Magnetic Resonan ce 07/20/2025 7:01 PM EDT Addenda Addendum by Agustin Cohen MD on 07/20/2025 7:10 PM EDT ADDENDUM: This report was discussed with Helen Bond RN on Jul 20, 2025 19:10:00 EDT. This document has been electronically signed by: Lenore Bower on 07/20/2025 19:10:44 Impressions 07/20/2025 7:01 PM EDT Impression: There is hemodynamically significant focal stenosis involving right and left P1 segments. No collateral flow from the frontal circulation to the posterior circulation is identified. No posterior communicating arteries are identified No signs of aneurysm. No signs of arterial venous malformation. This document has been electronically signed by: Agustin Cohen MD on 07/20/2025 19:01:56 Narrative 07/20/2025 7:01 PM EDT INDICATION: STROKE MRA HEAD, 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 3D [id number] reconstructions : Comparison: None Right Carotid Siphon: Unremarkable Right Anterior Cerebral Artery: A1 and A2 segments are unremarkable. There is peripheral cortical enhancement. Right Middle Cerebral Artery: M1 and M2 segments are unremarkable. There is peripheral cortical enhancement. Right Posterior Cerebral Artery: High-grade focal stenosis at the origin of right P1, P2 segments are unremarkable. There is peripheral enhancement Left Carotid Siphon: Unremarkable Left Anterior Cerebral Artery: A1 and A2 segments are unremarkable. There is peripheral cortical enhancement. Left Middle Cerebral Artery: M1 and M2 segments are unremarkable. There is peripheral cortical enhancement. Left Posterior Cerebral Artery: High-grade focal stenosis at the origin of the left P1 P2 segments are unremarkable. There is peripheral cortical enhancement. Basilar Artery: Unremarkable Venous drainage: Normal. Procedure Note Agustin Cohen MD - 07/20/2025 INDICATION: STROKE MRA HEAD, 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 3D [id number] reconstructions : Comparison: None Right Carotid Siphon: Unremarkable Right Anterior Cerebral Artery: A1 and A2 segments are unremarkable.There is peripheral cortical enhancement. Right Middle Cerebral Artery: M1 and M2 segments are unremarkable. There is peripheral cortical enhancement. Right Posterior Cerebral Artery: High-grade focal stenosis at the origin of right P1, P2 segments are unremarkable. There is peripheralenhancement Left Carotid Siphon: Unremarkable Left Anterior Cerebral Artery: A1 and A2 segments are unremarkable.There is peripheral cortical enhancement. Left Middle Cerebral Artery: M1 and M2 segments are unremarkable. Thereis peripheral cortical enhancement. Left Posterior Cerebral Artery: High-grade focal stenosis at the originof the left P1 P2 segments are unremarkable. There is peripheral cortical enhancement. Basilar Artery: Unremarkable Venous drainage: Normal. IMPRESSION: Impression: There is hemodynamically significant focal stenosis involving right and left P1 segments. No collateral flow from the frontal circulation to the posterior circulation is identified. No posterior communicating arteries are identified No signs of aneurysm. No signs of arterial venous malformation. This document has been electronically signed by: Agustin Cohen MD on 07/20/2025 19:01:56 us Matilda FONSECA [facility] MRI PROCEDURES Edited Result - Final * (ABNORMAL) TRANSTHORACIC ECHOCARDIOGRAM (TTE) COMPLETE W/ CONTRAST (07/20/2025 3:55 PM EDT) Left Atrium Minor Strum 5.6 cm CV PACS Left Atrium Major Strum 5.8 cm CV PACS LA Area Sys (A2C) 21 cm2 CV PACS LA Area Sys (A4C) 22 cm2 CV PACS LA Volume (BP) 65 mL CV PACS RA Area 13.7 cm2 CV PACS RA 2D Volume 31 mL CV PACS AV Mean Gradient 11 mmHg CV PACS Ao VTI 41.6 cm CV PACS AV Peak Dustin 2.3 m/s CV PACS AV Peak Gradient 20 mmHg CV PACS AV Area Continuity Equation 2.1 cm2 CV PACS AV Area Peak Velocity 1.9 cm2 CV PACS Aortic Sinus Valsalva 3.1 cm CV PACS Ascending Aorta 3.2 cm CV PACS IVC Proximal 1.3 cm CV PACS IVSD 1.2(A) 0.6 - 0.9 cm CV PACS LVIDD 4.6 3.8 - 5.2 cm CV PACS LVIDS 2.6 2.2 - 3.5 cm CV PACS LVOT Diameter 2.0 cm CV PACS LVOT Mean Dustin 1.0 m/s CV PACS LVOT Mean Grad 5 mmHg CV PACS LVOT Peak VTI 27.3 cm CV PACS LVOT Peak Dustin 1.4 m/s CV PACS LVOT Peak Gradient 8 mmHg CV PACS LVPWD 1.2(A) 0.6 - 0.9 cm CV PACS MV E' Tissue Velocity Lateral 10 cm/s CV PACS MV E' Tissue Velocity Septal 7 cm/s CV PACS LVOT Area 3.1 cm2 CV PACS LVOT Stroke Volume 86 mL CV PACS MV Deceleration [place] 4.4 m/s2 CV PACS E Wave Deceleration Time 286(A) 119 - 242 ms CV PACS MV PHT 85 ms CV PACS MV Peak A Dustin 1.31 m/s CV PACS MV Peak E Dustin 1.24 m/s CV PACS MV Mean Gradient 5 mmHg CV PACS MV VTI 40.4 cm CV PACS Mitral Valve Max Velocity 1.7 m/s CV PACS MV Peak Gradient 11 mmHg CV PACS MV Area PHT 2.6 cm2 CV PACS MV Area Continuity Equation 2.1 cm2 CV PACS PV Acceleration Time 116 ms CV PACS PV Acceleration Time 116 ms CV PACS RV Diastolic Basal Dimension 3.0 2.5 - 4.1 cm CV PACS RV S' 19 cm/s CV PACS TAPSE 32 mm CV PACS E/E' Ratio Septal 18 CV PACS E/E' Ratio Averaged 15 CV PACS LVOT Stroke Index 53 mL/m2 CV PACS Relative Wall Thickness ratio 0.52 CV PACS LVOT:AV VTI Index 0.66 CV PACS FS 43 % CV PACS LV Mass 2D 205 g CV PACS Ascending Aorta Index 1.96 cm/m2 CV PACS MV VTI:LVOT VTI ratio 1.5 CV PACS LVOT flow 314 mL/s CV PACS RA 2D Volume Index 19 mL/m2 CV PACS DERREK Index (VTI) 1.26 cm2/m2 CV PACS DERREK Index (Pk Dustin) 1.17 cm2/m2 CV PACS LVIDD Index 2.82 cm/m2 CV PACS LVIDS Index 1.60 cm/m2 CV PACS AV Velocity Ratio 0.61 CV PACS E/A Ratio 0.9 CV PACS E/E' Ratio Lateral 12 CV PACS LA Volume Index (BP) 40 mL/m2 CV PACS LV Mass Index 2D 126 g/m2 CV PACS BSA 1.63 m2 CV PACS Est. RA Pressure 3 mmHg CV PACS Anatomical Region Laterality Modality Ultrasound Narrative 07/20/2025 4:37 PM EDT Left ventricle cavity size is normal. Left ventricular systolic function is hyperdynamic with an ejection fraction over 70%. No regional LV wall motion abnormalities noted. Left ventricle mild hypertrophy. Right ventricle cavity is normal. Right ventricular systolic function is normal. Aortic valve leaflets are mildly thickened. No stenosis or insufficiency. Posterior mitral annular calcification and posterior leaflet thickening. Mild mitral stenosis with a mean gradient of 5 at a heart rate of 86 bpm and hyperdynamic function. The anterior leaflet moves well. The left atrium is mildly dilated. No significant change from March 28, 2025 Left Ventricle Left ventricle cavity size is normal. There is mild hypertrophy with upper septal thickening (1.5 cm). Systolic function is hyperdynamic with an ejection fraction over 70%. There are no regional LV wall motion abnormalities. Indeterminate diastolic function. Right Ventricle Right ventricle cavity appears normal. Systolic function is normal. Left Atrium Left atrium volume index is mildly increased. Right Atrium Right atrium cavity is normal. IVC/SVC RA pressures is estimated to be 3 mmHg (IVC diameter <21 mm and decreases >50% during inspiration). Mitral Valve The leaflets are mildly thickened. There is moderate annular calcification. There is trace regurgitation. There is mild stenosis. MV mean gradient is 5 mmHg. Tricuspid Valve The leaflets exhibit normal excursion. There is trace regurgitation. Cannot assess RVSP. Aortic Valve The aortic valve is trileaflet. The leaflets are mildly thickened. There is no regurgitation or stenosis. Pulmonic Valve Visualized portions of the pulmonic valve appear normal. There is trace pulmonic valve regurgitation. Ascending Aorta The aorta appears normal in size. Pericardium Pericardium appears normal. Study Details Overall the study quality was technically difficult. Definity contrast was given to enhance imaging. Study was difficult due to: poor endocardial visualization. us Matilda FONSECA CV ECHO PROCEDURES Final R esult * MR Brain wo Contrast (07/20/2025 1:15 PM EDT) Anatomical Region Laterality Modality Head and Neck Magnetic Resonan ce 07/20/2025 1:36 PM EDT Impressions 07/20/2025 1:39 PM EDT 1. Subacute infarcts in the bilateral cerebellar hemispheres and left occipital lobe. 2. No acute intracranial hemorrhage. 3. Moderate chronic small vessel ischemic change. -------- FINAL REPORT -------- Dictated By: Odessa Funk Dictated Date: 07/20/2025 13:36 ET Assigned Physician: Odessa Funk Reviewed and Electronically Signed By: Odessa Funk Signed Date: 07/20/2025 13:39 ET Workstation ID: [id number] Transcribed By: Self Edit Transcribed Date: 07/20/2025 13:36 ET Narrative 07/20/2025 1:39 PM EDT HISTORY: STROKE altered mental status, weakness. TECHNIQUE: Routine MRI of the brain 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 COMPARISON: None available. FINDINGS: Subacute infarcts in the bilateral cerebellar hemispheres and left occipital lobe evident by diffusion restriction with associated T2/FLAIR hyperintensity evident. There is also increased signal in the right thalamus without associated hypointensity on the ADC map and may represent some T2 shine through possibly representing chronic infarct.. Moderate scattered periventricular and subcortical white matter T2/FLAIR hyperintensities are most likely related to chronic small vessel ischemic change. Symmetric parenchymal volume loss. CSF spaces commensurate for degree of atrophy. No hydrocephalus. Visualized paranasal sinuses are clear. Mastoid air cells are clear. No calvarial fracture. Pseudophakia.. Procedure Note Odessa Funk MD - 07/20/2025 HISTORY: STROKE altered mental status, weakness. TECHNIQUE: Routine MRI of the brain 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 COMPARISON: None available. FINDINGS: Subacute infarcts in the bilateral cerebellar hemispheres and leftoccipital lobe evident by diffusion restriction with associated T2/FLAIRhyperintensity evident. There is also increased signal in the rightthalamus without associated hypointensity on the ADC map and may representsome T2 shine through possibly representing chronic infarct.. Moderate scattered periventricular and subcortical white matter T2/FLAIRhyperintensities are most likely related to chronic small vessel ischemicchange. Symmetric parenchymal volume loss. CSF spaces commensurate for degree ofatrophy. No hydrocephalus. Visualized paranasal sinuses are clear. Mastoid air cells are clear. No calvarial fracture. Pseudophakia.. IMPRESSION: 1. Subacute infarcts in the bilateral cerebellar hemispheres and leftoccipital lobe. 2. No acute intracranial hemorrhage. 3. Moderate chronic small vessel ischemic change. -------- FINAL REPORT -------- Dictated By: Odessa Funk Dictated Date: 07/20/2025 13:36 ET Assigned Physician: Odessa Funk Reviewed and Electronically Signed By: Odessa Funk Signed Date: 07/20/2025 13:39 ET Workstation ID: [id number] Transcribed By: Self Edit Transcribed Date: 07/20/2025 13:36 ET us Matilda FONSECA IMLetty MRI PROCEDURES Final R esult * Vascular US duplex carotid bilateral (07/20/2025 12:53 PM EDT) Anatomical Region Laterality Modality Vascular, Abdomen Ultrasound 07/22/2025 11:1 0 AM EDT Impressions 07/22/2025 11:14 AM EDT Mildly elevated velocities in the right distal internal carotid artery and left mid internal carotid artery suggestive of 50-69% stenosis. -------- FINAL REPORT -------- Dictated By: Odessa Funk Dictated Date: 07/22/2025 11:10 ET Assigned Physician: Odessa Funk Reviewed and Electronically Signed By: Odessa Funk Signed Date: 07/22/2025 11:14 ET Workstation ID: [id number] Transcribed By: Self Edit Transcribed Date: 07/22/2025 11:11 ET Narrative 07/22/2025 11:14 AM EDT PROCEDURE: Carotid ultrasound. HISTORY: CVA. TECHNIQUE: Grayscale, color Doppler, and spectral Doppler ultrasound evaluation of the carotid and vertebral arteries in the neck. COMPARISON: FINDINGS: Grayscale ultrasound evaluation of the carotid arteries demonstrates mild atherosclerotic plaque. Spectral Doppler evaluation demonstrates normal carotid arterial waveforms with mildly elevated velocity in the right distal internal carotid artery measuring 147cm/s and a peak systolic velocity of 139.45 in the mid left internal carotid artery. Antegrade flow with normal spectral Doppler tracings in both vertebral arteries. Procedure Note Odessa Funk MD - 07/22/2025 PROCEDURE: Carotid ultrasound. HISTORY: CVA. TECHNIQUE: Grayscale, color Doppler, and spectral Doppler ultrasoundevaluation of the carotid and vertebral arteries in the neck. COMPARISON: FINDINGS: Grayscale ultrasound evaluation of the carotid arteries demonstrates mildatherosclerotic plaque. Spectral Doppler evaluation demonstrates normalcarotid arterial waveforms with mildly elevated velocity in the rightdistal internal carotid artery measuring 147cm/s and a peak systolicvelocity of 139.45 in the mid left internal carotid artery. Antegradeflow with normal spectral Doppler tracings in both vertebral arteries. IMPRESSION: Mildly elevated velocities in the right distal internal carotid artery andleft mid internal carotid artery suggestive of 50-69% stenosis. -------- FINAL REPORT -------- Dictated By: Odessa Funk Dictated Date: 07/22/2025 11:10 ET Assigned Physician: Odessa Funk Reviewed and Electronically Signed By: Odessa Funk Signed Date: 07/22/2025 11:14 ET Workstation ID: [id number] Transcribed By: Self Edit Transcribed Date: 07/22/2025 11:11 ET us Matilda FONSECA CV VASCULAR PROCEDURES Fin al Result * ROUTINE EEG (07/20/2025 8:38 AM EDT) Narrative Obinna Galeana MD - 07/20/2025 9:11 AM EDT Obinna Galeana MD 07/20/2025 9:23 AM Routine EEG Date/Time: 07/20/2025 9:11 AM Performed by: Obinna Galeana MD Authorized by: RAYMUNDO Cunha us Esthela FONSECA NEUROLOGY ORDERABLES Fi nal Result * Lipid panel with reflex to direct LDL (07/20/2025 5:50 AM EDT) Cholesterol 132 0 - 200 mg/dL LAB CHEMISTRY METHOD 07/20/2025 11:56 AM EDT [facility] Triglycerides 74 0 - 150 mg/dL LAB CHEMISTRY METHOD 07/20/2025 11:56 AM EDT [facility] HDL 59 >=40 mg/dL LAB CHEMISTRY METHOD 07/20/2025 11:56 AM EDT [facility] LDL Calculated 58 0 - 100 mg/dL LAB CHEMISTRY METHOD 07/20/2025 11:56 AM EDT [facility] Comment:Estimated LDL Calcul ated using equation: Total cholesterol - HDL cholesterol - (Triglycerides/5) VLDL Cholesterol Nagi 14.8 mg/dL LAB CHEMISTRY METHOD 07/20/2025 11:56 AM EDT [facility] Non HDL Chol. (LDL+VLDL) 73 <145 mg/dL LAB CHEMISTRY METHOD 07/20/2025 11:56 AM T [facility] Chol/HDL Ratio 2.2 0.0 - 4.4 LAB CHEMISTRY METHOD 07/20/2025 11:56 AM T [facility] Blood Venous blood specimen / Unknown Venipuncture / Unknown 07/20/2025 5:50 AM EDT 07/20/2025 6:19 AM EDT us Matilda FONSECA LAB BLOOD ORDERABLES Final Result [facility] [address] [place] [address], [place] [phone] * (ABNORMAL) Urinalysis with reflex microscopic (07/19/2025 8:53 PM EDT) Pathologist [facility] Specific [place] Urine 1.018 1.003 - 1.030 LAB URINALYSIS - AUTOMATED METHOD 07/19/2025 9:22 PM [facility] pH, Urine 7.5 5.0 - 8.0 pH LAB URINALYSIS - AUTOMATED METHOD 07/19/2025 9:22 PM [facility] Leukocytes, Urine Moderate(A) Negative LAB URINALYSIS - AUTOMATED METHOD 07/19/2025 9:22 PM [facility] Nitrite, Urine Negative Negative LAB URINALYSIS - AUTOMATED METHOD 07/19/2025 9:22 PM [facility] Protein, Urine 300(A) <=Trace mg/dL LAB URINALYSIS - AUTOMATED METHOD 07/19/2025 9:22 PM [facility] Glucose, Urine Negative Negative mg/dL LAB URINALYSIS - AUTOMATED METHOD 07/19/2025 9:22 PM [facility] Ketones, Urine Negative Negative mg/dL LAB URINALYSIS - AUTOMATED METHOD 07/19/2025 9:22 PM [facility] Urobilinogen , Urine 0.2 0.2 - 1.0 mg/dL LAB URINALYSIS - AUTOMATED METHOD 07/19/2025 9:22 PM [facility] Bilirubin, Urine Negative Negative LAB URINALYSIS - AUTOMATED METHOD 07/19/2025 9:22 PM [facility] Blood, Urine Small(A) Negative LAB URINALYSIS - AUTOMATED METHOD 07/19/2025 9:22 PM [facility] RBC, Urine 14.0(H) 0 - 4 /HPF LAB URINALYSIS - AUTOMATED METHOD 07/19/2025 9:22 PM [facility] WBC, Urine 53.2(H) 0 - 4 /HPF LAB URINALYSIS - AUTOMATED METHOD 07/19/2025 9:22 PM [facility] Squamous Epithelial, Urine 88(H) 0 - 60 /LPF LAB URINALYSIS - AUTOMATED METHOD 07/19/2025 9:22 PM EDT [facility] Bacteria, Urine Many(A) Negative /HPF LAB URINALYSIS - AUTOMATED METHOD 07/19/2025 9:22 PM EDT [facility] Hyaline Casts, Urine >182(H) 0 - 3 /LPF LAB URINALYSIS - AUTOMATED METHOD 07/19/2025 9:22 PM EDT [facility] Urine Urine specimen obtained by clean catch procedure / Unknown Non-blood Collection / Unknown 07/19/2025 8:53 PM EDT 07/19/2025 8:57 PM EDT us Mina Dykes MD LAB URINE ORDERABLES Final Resu lt Performing Organization Address [facility]/ZIP Co de Phone Number [facility] [address] [place] [address], [place] [phone] * (ABNORMAL) Troponin I high sensitivity (07/19/2025 8:33 PM EDT) High Sensitivity Troponin I 104(H) <=54 ng/L LAB CHEMISTRY METHOD 07/19/2025 9:22 PM EDT [facility] Blood Venous blood specimen / Unknown Venipuncture / Unknown 07/19/2025 8:33 PM EDT 07/19/2025 8:40 PM EDT Narrative [facility] - 07/19/2025 9:22 PM EDT High levels of biotin in samples may falsely decrease hsTroponin values. Use caution when interpreting hsTroponin results in patients taking biotin who exhibit renal impairment (eGFR <60) or in patients taking more than 20 mg/day of biotin. us Esthela FONSECA LAB BLOOD ORDERABLES Fi nal Result Performing Organization Address [facility]/ZIP Co de Phone Number [facility] [address] [place] [address], [place] [phone] * Light blue tube (07/19/2025 8:33 PM EDT) [facility] Extra Tube Hold for add-ons. 07/19/2025 10:02 PM EDT [facility] Comment:Auto resulted. Blood Venous blood specimen / Unknown 07/19/2025 8:33 PM EDT 07/19/2025 8:41 PM EDT Ajit Webster MD LAB BLOOD ORDERABLES F inal Result [facility] [address] [place] [address], [place] [phone] * Hemoglobin A1c (07/19/2025 8:33 PM EDT) [facility] Hemoglobin A1C 5.7 <6.5 % LAB CHEMISTRY METHOD 07/20/2025 12:35 PM EDT [facility] Mean Bld Glu Estim. 117 mg/dL LAB CHEMISTRY METHOD 07/20/2025 12:35 PM EDT [facility] Blood Venous blood specimen / Unknown 07/19/2025 8:33 PM EDT 07/19/2025 8:41 PM EDT Esthela FONSECA LAB BLOOD ORDERABLES Fi nal Result [facility] [address] [place] [address], [place] [phone] * CT Abdomen Pelvis w Contrast (07/19/2025 6:06 PM EDT) Anatomical Region Laterality Modality Body Computed Tomogra phy 07/19/2025 6:33 PM EDT Impressions 07/19/2025 6:33 PM EDT 1. Likely colitis of the distal colon extending from the splenic flexure to the rectum. 2. Small pericardial effusion with interval increase. 3. Cholelithiasis. This document has been electronically signed by: Kaitlyn Cabrales MD on 07/19/2025 18:33:43 Narrative 07/19/2025 6:33 PM EDT INDICATION: abd px vomiting CT abdomen and pelvis with contrast Comparison: CT - CT ABD PEL WO CONTRAST - 03/27/25 17:27 EDT Findings: There is a small pericardial effusion with interval increase. There is no consolidation or pleural effusion. Unremarkable abdominal organs. There are tiny gallstones within the gallbladder. There is apparent thickening of the wall of the distal colon extending from the splenic flexure to the rectum. There is no bowel obstruction. There is colonic diverticulosis without diverticulitis. Unremarkable pelvic contents. Normal appendix. No acute fracture. Procedure Note Kaitlyn Reddy MD - 07/19/2025 INDICATION: abd px vomiting CT abdomen and pelvis with contrast Comparison: CT - CT ABD PEL WO CONTRAST - 03/27/25 17:27 EDT Findings: There is a small pericardial effusion with interval increase. There isno consolidation or pleural effusion. Unremarkable abdominal organs. There are tiny gallstones within the gallbladder. There is apparent thickening of the wall of the distal colon extending from the splenic flexure to the rectum. There is no bowel obstruction. There is colonic diverticulosis without diverticulitis. Unremarkable pelvic contents. Normal appendix. No acute fracture. IMPRESSION: 1. Likely colitis of the distal colon extending from the splenic flexure to the rectum. 2. Small pericardial effusion with interval increase. 3. Cholelithiasis. This document has been electronically signed by: Kaitlyn Cabrales MD on 07/19/2025 18:33:43 Mina Dykes MD IM CT PROCEDURES Final Result * Thyroid stimulating hormone with reflex to free t4 and free t3 (TSH Reflex) (07/19/2025 4:56 PM EDT) TSH 1.58 0.40 - 4.00 mcIU/mL LAB CHEMISTRY METHOD 07/19/2025 6:07 PM EDT [facility] Blood Venous blood specimen / Unknown Venipuncture / Unknown 07/19/2025 4:56 PM EDT 07/19/2025 5:03 PM EDT Mina Dykes MD LAB BLOOD ORDERABLES Final Resu lt Performing Organization Address [facility]/ZIP Co de Phone Number [facility] [address] [place] [address], [place] [phone] * Calcium, ionized (07/19/2025 2:54 PM EDT) [facility] Calcium Ionized 4.90 4.50 - 5.30 mg/dL 07/19/2025 3:55 PM EDT [facility] Blood Venous blood specimen / Unknown Venipuncture / Unknown 07/19/2025 2:54 PM EDT 07/19/2025 3:40 PM EDT Mina Dykes MD LAB BLOOD ORDERABLES Final Resu lt Performing Organization Address City/[facility]/ZIP Co de Phone Number [facility] [address] [place] [address], [place] [phone] * 12-Lead ECG (07/19/2025 2:52 PM EDT) [facility] Ventricular Rate ECG 95 BPM GEMUSE Atrial Rate 95 BPM GEMUSE P-R Interval 174 ms GEMUSE QRS Duration 128 ms GEMUSE Q-T Interval 382 ms GEMUSE QTc 480 ms GEMUSE R Strum -50 degrees GEMUSE T Strum 54 degrees GEMUSE ECG Interpretation Normal sinus rhythm Right bundle branch block Left anterior fascicular block Bifascicular block Moderate voltage criteria for LVH, may be normal variant Abnormal ECG When compared with ECG of 30-MAR-2025 09:53, Left anterior fascicular block is now Present Nonspecific T wave abnormality no longer evident in Inferior leads T wave inversion no longer evident in Lateral leads QT has lengthened Confirmed by CARRIE BREAUX ([id number]) on 07/19/2025 6:06:40 PM GEMUSE 07/19/2025 2:52 PM EDT 07/19/2025 6:06 PM EDT us Mina Dykes MD ECG ORDERABLES Final Result [facility] * Occult blood stool, guaiac (03/29/2025 11:04 PM EDT) Occult Blood, Stool #1 Negative Negative 03/29/2025 11:52 PM EDT [facility] Stool Rectum structure / Unknown Non-blood Collection / Unknown 03/29/2025 11:04 PM EDT 03/29/2025 11:44 PM EDT us Timothy So MD LAB BODY FLUIDS AND STO OLS ORDERABLES Final Result Performing Organization Address City/[facility]/ZIP Co de Phone Number [facility] [address] [place] [address], from Last 3 Months or Most Recently Relevant to Health Maintenance Insurance MEDICARE [facility] [[email or web address]] Advance Directives Documents on File Type Date Recorded 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 ADVANCE DIR ECTIVE Health Care Decision (hx) 02/14/2021 ADVANCE DIRECTIVE Health Care Decision (hx) 02/14/2021 ADVANCE DIRECTIVE Health Care Decision (hx) 02/14/2021 ADVANCE DIRECTIVE Health Care Decision (hx) 02/14/2021 ADVANCE DIRECTIVE * Full Code - Default (Latest Code Status on File) Date Activated Date Inactivated Comments 07/22/2025 4:52 PM 08/07/2025 2:50 PM This is or jasmin is used when code status has not been discussed with the patient, or code status is otherwise unknown/unconfirmed To update the patient's code status, place a code status order. Do not modify or discontinue any currently active code status orders. * Full Code - Confirmed Date Activated Date Inactivated Comments 07/20/2025 2:19 PM 07/22/2025 4:[address] atus was ascertained in the following way: Code status discussion: discussion with healthcare manufacturing sales representative To update the patient's code status, place a code status order. Do not modify or discontinue any currently active code status orders. * Full Code - Default Date Activated Date Inactivated Comments 07/19/2025 7:25 PM 07/20/2025 2:19 PM This is orde r is used when code status has not been discussed with the patient, or code status is otherwise unknown/unconfirmed To update the patient's code status, place a code status order. Do not modify or discontinue any currently active code status orders. * Full Code - Default Date Activated Date Inactivated Comments 03/27/2025 6:07 PM 04/05/2025 2:53 PM This is orde r is used when code status has not been discussed with the patient, or code status is otherwise unknown/unconfirmed To update the patient's code status, place a code status order. Do not modify or discontinue any currently active code status orders. Healthcare Agents on File Name Relationship Healthcare Agent Relationshi p Communication Stan Pro Spouse First Alternate Health Care Agent Stan Pro Jr. 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
[2025-09-04 08:03] LABS: HBS Num1 45.10 mIU/mL (0-7.99); HBsAGNum1 0.39 S/CO (0.00-0.99); HIV Num 1 0.07 S/CO (0.00-0.99); Hepatitis B Surface Antigen Negative (Negative); ~HepC Num1 0.16 S/CO (0.00-0.79); ~Hepatitis B Surface Antibody REACTIVE (Nonreactive); ~Hepatitis C Antibody Nonreactive (Nonreactive)
[2025-09-04 08:34] LABS: Syphilis Screen Nonreactive (Nonreactive)
[2025-09-08 17:09] LABS: VITAMIN D (1,25 OH) D3 9 pg/mL; Vit D (1,25-Dihydroxy) Total 9 pg/mL (18-72); Vitamin D (1,25 OH) D2 <8 pg/mL
--- OUTSIDE RECORDS SUMMARY | 2025-10-05 19:00 | XMS_ITS | Clinical Summary ---
Author Organization Unknown Care Team Providers Care Inside [employer] Sales Name Role Phone MARIBEL SHEETS, ZAHIRA Unavailable Unavailsen CALIX RN, ROLO Unavailable Unavailab remedios GONZALEZ TRACK WATCHMAN, TOYA Unavailable Unavailable LUNA PT, JESUS Unavailable Unavail able NUNO FLOAT REMOVER, CHI Unavailable Unavailable READING OT, KYLE Unavailable Unavailable TROY ODOM ST, LISA Unavailable Unavailable Payers Payer Name Policy Type Policy Number Effective Date Expira tion Date MEDICARE.NGS.PDGM [id number] Problems Condition Name Condition Details Condition Category Status Onset Date Resolution Date Last Treatment Date Treating Clinician Comments HEMIPLGA FOLLOWING CEREBRAL INFRC AFFECTING LEFT NONDOM SIDE Active 2024-10 00:00: 00 METABOLIC ENCEPHALOPAT HY Active 2024-10 00:00: 00 ACUTE KIDNEY FAILURE, UNSPECIFIED Active 2024-10 00:00: 00 NONINFECTIVE GASTROENTERI TIS AND COLITIS, UNSPECIFIED Active 2024-10 00:00: 00 OCCLUSION AND STENOSIS OF BILATERAL CAROTID ARTERIES Active 2024-10 00:00: 00 HYP HRT AND CHR KDNY DIS W HRT FAIL AND STG 1-4/UNSP CHR KDNY Active 10-18 00:00: 00 CHRONIC DIASTOLIC (CONGESTIVE) HEART FAILURE Active 10-18 00:00: 00 TYPE 2 DIABETES MELLITUS W DIABETIC CHRONIC KIDNEY DISEASE Active 10-18 00:00: 00 CHRONIC KIDNEY DISEASE, STAGE 4 (SEVERE) Active 10-18 00:00: 00 ANEMIA IN CHRONIC KIDNEY DISEASE Active 10-18 00:00: 00 ANXIETY DISORDER, UNSPECIFIED Active 10-18 00:00: 00 DEPRESSION, UNSPECIFIED Active 10-18 00:00: 00 HYPERLIPIDEM IA, UNSPECIFIED Active 10-18 00:00: 00 GASTRO-ESOPH AGEAL REFLUX DISEASE WITHOUT ESOPHAGITIS Active 10-18 00:00: 00 Allergies, Adverse Reactions, Alerts Allergy Name Allergy Type Status Severity Reaction(s) Onset Date Inactive Date Treating Clinician Comments NO KNOWN ALLERGIES Propensity to adverse reactions Active 2024-10 12:49: 38 Medications Ordered Medication Name Filled Medication Name Start Date Stop Date Current Medication? Ordering Clinician Indication Dosage Frequency Signature (SIG) Comments Components aspirin 81 mg tablet,tere yed release 2024-10 00:00: 00 Yes [id number] STROKE 1 tablet DAILY 1 tablet DAILY (route: oral) Med Classific ation: Hematolog ical Agents atorvastati n 20 mg tablet 2024-10 00:00: 00 Yes [id number] STROKE 1 tablet BEDTIME 1 tablet BEDTIME (route: oral) Med Classific ation: Cardiovas cular Therapy Agents docusate sodium 100 mg capsule 2024-10 00:00: 00 Yes [id number] CONSTIPATIO N 1 capsule BEDTIME 1 capsule BEDTIME (route: oral) Med Classific ation: Gastroint estinal Therapy Agents hydralazine 25 mg tablet 2024-10 00:00: 00 Yes [id number] HIGH BLOOD PRESSURE 1 tablet 3 TIMES DAILY 1 tablet 3 TIMES DAILY (route: oral) Med Classific ation: Cardiovas cular Therapy Agents metoprolol succinate ER 100 mg tablet,exte nded release 24 hr 2024-10 00:00: 00 Yes [id number] IRREGULAR HEART BEAT 1 tablet DAILY 1 tablet DAILY (route: oral) Med Classific ation: Cardiovas cular Therapy Agents Multivitami n 50 Plus tablet 2024-10 00:00: 00 Yes [id number] SUPPLEMENT 1 tablet DAILY 1 tablet DAILY (route: oral) Med Classific ation: Electroly te Balance-N utritiona l Products Senna Lax 8.6 mg tablet 2024-10 00:00: 00 Yes [id number] CONSTIPATIO N 2 tablet BEDTIME 2 tablet BEDTIME (route: oral) Med Classific ation: Gastroint estinal Therapy Agents pantoprazol e 40 mg tablet,tere yed release 2024-10 00:00: 00 Yes [id number] GERD 1 tablet DAILY 1 tablet DAILY (route: oral) Med Classific ation: Gastroint estinal Therapy Agents Vital Signs Vital Name Observation Time Observation Value Commen ts Temperature 2025-08-30 08:54:00.000 97.1 [degF] Temperature 2025-08-29 10:10:00.000 97.5 [degF] Temperature 2025-08-28 09:07:00.000 97.7 [degF] Temperature 2025-08-27 12:54:00.000 97.2 [degF] Temperature 2025-08-24 09:07:00.000 97.1 [degF] Temperature 2025-08-22 10:12:00.000 98.6 [degF] Temperature 2025-08-21 10:26:00.000 97.8 [degF] Temperature 2025-08-20 13:01:00.000 97.2 [degF] Temperature 2025-08-17 09:33:00.000 97 [degF] Temperature 2025-08-16 10:43:00.000 98.3 [degF] Temperature 2025-08-15 10:45:00.000 98.1 [degF] Temperature 2025-08-14 09:11:00.000 97.4 [degF] Temperature 2025-08-09 12:06:00.000 97.7 [degF] Temperature 2025-08-08 13:27:00.000 97.7 [degF] BMI (%) 2025-08-08 13:27:00.000 22 kg/m2 Height 2025-08-08 13:27:00.000 64 [in_us] Pulse 2025-08-30 08:54:00.000 60 /min Pulse 2025-08-29 10:10:00.000 67 /min Pulse 2025-08-28 09:07:00.000 67 /min Pulse 2025-08-27 12:54:00.000 84 /min Pulse 2025-08-24 09:07:00.000 62 /min Pulse 2025-08-22 10:12:00.000 60 /min Pulse 2025-08-21 10:26:00.000 66 /min Pulse 2025-08-20 13:01:00.000 70 /min Pulse 2025-08-17 09:33:00.000 68 /min Pulse 2025-08-16 10:43:00.000 60 /min Pulse 2025-08-15 10:45:00.000 64 /min Pulse 2025-08-14 09:11:00.000 64 /min Pulse 2025-08-09 12:06:00.000 80 /min Pulse 2025-08-08 13:27:00.000 71 /min O2 Saturation (%) 2025-08-30 08:54:00.000 98 % O2 Saturation (%) 2025-08-29 10:10:00.000 100 % O2 Saturation (%) 2025-08-28 09:07:00.000 98 % O2 Saturation (%) 2025-08-27 13:02:00.000 90 % O2 Saturation (%) 2025-08-24 09:07:00.000 98 % O2 Saturation (%) 2025-08-22 10:12:00.000 99 % O2 Saturation (%) 2025-08-21 10:26:00.000 100 % O2 Saturation (%) 2025-08-20 13:01:00.000 99 % O2 Saturation (%) 2025-08-17 09:33:00.000 98 % O2 Saturation (%) 2025-08-16 10:43:00.000 99 % O2 Saturation (%) 2025-08-15 10:45:00.000 97 % O2 Saturation (%) 2025-08-14 09:11:00.000 96 % O2 Saturation (%) 2025-08-08 13:27:00.000 98 % Respirations 2025-08-30 08:54:00.000 16 /min Respirations 2025-08-29 10:10:00.000 18 /min Respirations 2025-08-28 09:07:00.000 18 /min Respirations 2025-08-27 12:54:00.000 18 /min Respirations 2025-08-24 09:07:00.000 18 /min Respirations 2025-08-22 10:12:00.000 18 /min Respirations 2025-08-21 10:26:00.000 18 /min Respirations 2025-08-20 13:01:00.000 18 /min Respirations 2025-08-17 09:33:00.000 18 /min Respirations 2025-08-16 10:43:00.000 18 /min Respirations 2025-08-15 10:45:00.000 18 /min Respirations 2025-08-14 09:11:00.000 18 /min Respirations 2025-08-09 12:06:00.000 17 /min Respirations 2025-08-08 13:27:00.000 18 /min Weight (lbs) 2025-08-30 08:58:00.000 130.2 [lb_av] Weight (lbs) 2025-08-28 09:07:00.000 130.2 [lb_av] Weight (lbs) 2025-08-21 10:26:00.000 131 [lb_av] Weight (lbs) 2025-08-20 13:05:00.000 131.2 [lb_av] Weight (lbs) 2025-08-16 10:43:00.000 132 [lb_av] Weight (lbs) 2025-08-08 13:27:00.000 130.6 [lb_av] Systolic Blood Pressure 2025-08-30 08:54:00.000 140 mm [Hg] Systolic Blood Pressure 2025-08-29 10:10:00.000 110 mm [Hg] Systolic Blood Pressure 2025-08-28 09:07:00.000 112 mm [Hg] Systolic Blood Pressure 2025-08-27 12:54:00.000 104 mm [Hg] Systolic Blood Pressure 2025-08-24 09:07:00.000 138 mm [Hg] Systolic Blood Pressure 2025-08-22 10:12:00.000 115 mm [Hg] Systolic Blood Pressure 2025-08-21 10:26:00.000 110 mm [Hg] Systolic Blood Pressure 2025-08-20 13:01:00.000 102 mm [Hg] Systolic Blood Pressure 2025-08-17 09:33:00.000 122 mm [Hg] Systolic Blood Pressure 2025-08-16 10:43:00.000 140 mm [Hg] Systolic Blood Pressure 2025-08-15 10:45:00.000 140 mm [Hg] Systolic Blood Pressure 2025-08-14 09:11:00.000 122 mm [Hg] Systolic Blood Pressure 2025-08-09 12:06:00.000 110 mm [Hg] Systolic Blood Pressure 2025-08-08 13:27:00.000 110 mm [Hg] Diastolic Blood Pressure 2025-08-30 08:54:00.000 60 mm [Hg] Diastolic Blood Pressure 2025-08-29 10:10:00.000 60 mm [Hg] Diastolic Blood Pressure 2025-08-28 09:07:00.000 60 mm [Hg] Diastolic Blood Pressure 2025-08-27 12:54:00.000 56 mm [Hg] Diastolic Blood Pressure 2025-08-24 09:07:00.000 64 mm [Hg] Diastolic Blood Pressure 2025-08-22 10:12:00.000 70 mm [Hg] Diastolic Blood Pressure 2025-08-21 10:26:00.000 60 mm [Hg] Diastolic Blood Pressure 2025-08-20 13:01:00.000 54 mm [Hg] Diastolic Blood Pressure 2025-08-17 09:33:00.000 68 mm [Hg] Diastolic Blood Pressure 2025-08-16 10:43:00.000 68 mm [Hg] Diastolic Blood Pressure 2025-08-15 10:45:00.000 70 mm [Hg] Diastolic Blood Pressure 2025-08-14 09:11:00.000 68 mm [Hg] Diastolic Blood Pressure 2025-08-09 12:06:00.000 64 mm [Hg] Diastolic Blood Pressure 2025-08-08 13:27:00.000 54 mm [Hg] Plan of Treatment Planned Activity Planned Date Details Comments Future Scheduled Test RN TO OBSE RVE, ASSESS, EVALUATE, AND DEVELOP AN INDIVIDUALIZED PLAN OF CARE. AGENCY MAY ACCEPT ORDERS FROM CONSULTING PHYSICIANS RN TO OBSERVE AND ASSESS, TRACK WATCHMAN/DAIRY TECHNICIAN TO OBSERVE FOR RISK FOR FALLS AND INSTRUCT IN FALL PREVENTION, HOME SAFETY, MEDICATION MANAGEMENT, INFECTION PREVENTION, AND NUTRITION MANAGEMENT. RN/TRACK WATCHMAN/DAIRY TECHNICIAN NURSE MAY PERFORM O2 SATURATION LEVEL ON ADMISSION AND PRN FOR RN TO ASSESS/TRACK WATCHMAN TO OBSERVE PATIENT, WITH NOTIFICATION TO THE PHYSICIAN IF SATURATION IS 90% IN THE ABSENCE OF MORE SPECIFIC PARAMETERS FROM THE PHYSICIAN. AGENCY MAY PERFORM A RESUMPTION OF CARE VISIT FOLLOWING ANY HOSPITAL ADMISSION. RN/TRACK WATCHMAN/DAIRY TECHNICIAN TO MONITOR CO-MORBID CONDITIONS LISTED ON THE PLAN OF CARE AND ANY NEW CONDITIONS THAT PRESENT THEMSELVES DURING THIS EPISODE TO IDENTIFY CHANGES AND INTERVENE TO MINIMIZE COMPLICATIONS. [code = RN TO OBSERVE, ASSESS, EVALUATE, AND DEVELOP AN INDIVIDUALIZED PLAN OF CARE. AGENCY MAY ACCEPT ORDERS FROM CONSULTING PHYSICIANS RN TO OBSERVE AND ASSESS, TRACK WATCHMAN/DAIRY TECHNICIAN TO OBSERVE FOR RISK FOR FALLS AND INSTRUCT IN FALL PREVENTION, HOME SAFETY, MEDICATION MANAGEMENT, INFECTION PREVENTION, AND NUTRITION MANAGEMENT. RN/TRACK WATCHMAN/DAIRY TECHNICIAN NURSE MAY PERFORM O2 SATURATION LEVEL ON ADMISSION AND PRN FOR RN TO ASSESS/TRACK WATCHMAN TO OBSERVE PATIENT, WITH NOTIFICATION TO THE PHYSICIAN IF SATURATION IS 90% IN THE ABSENCE OF MORE SPECIFIC PARAMETERS FROM THE PHYSICIAN. AGENCY MAY PERFORM A RESUMPTION OF CARE VISIT FOLLOWING ANY HOSPITAL ADMISSION. RN/TRACK WATCHMAN/DAIRY TECHNICIAN TO MONITOR CO-MORBID CONDITIONS LISTED ON THE PLAN OF CARE AND ANY NEW CONDITIONS THAT PRESENT THEMSELVES DURING THIS EPISODE TO IDENTIFY CHANGES AND INTERVENE TO MINIMIZE COMPLICATIONS.] Future Scheduled Test MEDICATION MANAGEMENT; RN/TRACK WATCHMAN/DAIRY TECHNICIAN TO REVIEW MEDICATIONS FOR INTERACTIONS, EFFECTIVENESS OF DRUG THERAPY, AND SIGNS/SYMPTOMS OF ADVERSE REACTIONS. MAY INSTRUCT AND REINFORCE MEDICATION TEACHING RELATED TO THE USE OF MEDICATIONS, DOSAGE, FREQUENCY, PURPOSE, SIDE EFFECTS, AND TO REPORT COMPLICATIONS. [code = MEDICATION MANAGEMENT; RN/TRACK WATCHMAN/DAIRY TECHNICIAN TO REVIEW MEDICATIONS FOR INTERACTIONS, EFFECTIVENESS OF DRUG THERAPY, AND SIGNS/SYMPTOMS OF ADVERSE REACTIONS. MAY INSTRUCT AND REINFORCE MEDICATION TEACHING RELATED TO THE USE OF MEDICATIONS, DOSAGE, FREQUENCY, PURPOSE, SIDE EFFECTS, AND TO REPORT COMPLICATIONS.] Future Scheduled Test RISK FOR H OSPITALIZATION; RN TO ASSESS/TEACH, DAIRY TECHNICIAN/TRACK WATCHMAN TO OBSERVE/TEACH PATIENT/CAREGIVER ON RISK FOR HOSPITALIZATION/EMERGENCY ROOM VISITS, TEACH SIGNS AND SYMPTOMS THAT PUT PATIENT AT RISK, WHEN TO NOTIFY NURSE/PHYSICIAN OF COMPLICATIONS/DECLINE, AND WHEN TO CALL 911. [code = RISK FOR HOSPITALIZATION; RN TO ASSESS/TEACH, DAIRY TECHNICIAN/TRACK WATCHMAN TO OBSERVE/TEACH PATIENT/CAREGIVER ON RISK FOR HOSPITALIZATION/EMERGENCY ROOM VISITS, TEACH SIGNS AND SYMPTOMS THAT PUT PATIENT AT RISK, WHEN TO NOTIFY NURSE/PHYSICIAN OF COMPLICATIONS/DECLINE, AND WHEN TO CALL 911.] Future Scheduled Test CARDIOVASC ULAR SYSTEM; RN TO ASSESS/TEACH, TRACK WATCHMAN/DAIRY TECHNICIAN TO OBSERVE/TEACH RELATED TO ALTERED CARDIOVASCULAR STATUS TO MINIMIZE COMPLICATIONS AND REDUCE HOSPITALIZATION. [code = CARDIOVASCULAR SYSTEM; RN TO ASSESS/TEACH, TRACK WATCHMAN/DAIRY TECHNICIAN TO OBSERVE/TEACH RELATED TO ALTERED CARDIOVASCULAR STATUS TO MINIMIZE COMPLICATIONS AND REDUCE HOSPITALIZATION.] Future Scheduled Test HEART FAIL URE; RN TO ASSESS/TEACH, TRACK WATCHMAN/DAIRY TECHNICIAN TO OBSERVE/TEACH CARDIOPULMONARY SYSTEM TO IDENTIFY SIGNS OF DECOMPENSATION AND INTERVENE TO MINIMIZE THE SEVERITY OF FLUID OVERLOAD. OBSERVE PATIENT ABILITY TO MONITOR AND RECORD DAILY WEIGHTS AND VITAL SIGNS, INCLUDING PULSE AND BLOOD PRESSURE; RECORD PATIENT REPORTED WEIGHT, OR WEIGH PATIENT NEEDED. REPORT INCREASED EDEMA OR WEIGHT GAIN OF >2 LBS IN 1 DAY OR >5 LBS IN 1 WEEK OR 5LBS OR MORE OVER TARGET WEIGHT. MAY MEASURE ABDOMINAL GIRTH IF UNABLE TO WEIGH. [code = HEART FAILURE; RN TO ASSESS/TEACH, TRACK WATCHMAN/DAIRY TECHNICIAN TO OBSERVE/TEACH CARDIOPULMONARY SYSTEM TO IDENTIFY SIGNS OF DECOMPENSATION AND INTERVENE TO MINIMIZE THE SEVERITY OF FLUID OVERLOAD. OBSERVE PATIENT ABILITY TO MONITOR AND RECORD DAILY WEIGHTS AND VITAL SIGNS, INCLUDING PULSE AND BLOOD PRESSURE; RECORD PATIENT REPORTED WEIGHT, OR WEIGH PATIENT NEEDED. REPORT INCREASED EDEMA OR WEIGHT GAIN OF >2 LBS IN 1 DAY OR >5 LBS IN 1 WEEK OR 5LBS OR MORE OVER TARGET WEIGHT. MAY MEASURE ABDOMINAL GIRTH IF UNABLE TO WEIGH.] Future Scheduled Test HYPERTENSI ON MANAGEMENT; RN TO ASSESS AND TEACH, TRACK WATCHMAN/DAIRY TECHNICIAN TO OBSERVE AND TEACH WARNING SIGNS AND SYMPTOMS TO AVOID HOSPITALIZATION. [code = HYPERTENSION MANAGEMENT; RN TO ASSESS AND TEACH, TRACK WATCHMAN/DAIRY TECHNICIAN TO OBSERVE AND TEACH WARNING SIGNS AND SYMPTOMS TO AVOID HOSPITALIZATION.] Future Scheduled Test PAIN MANAG EMENT; RN TO ASSESS AND TEACH, DAIRY TECHNICIAN/TRACK WATCHMAN TO OBSERVE AND TEACH AND PROVIDE EDUCATION ON PAIN MANAGEMENT TECHNIQUES. [code = PAIN MANAGEMENT; RN TO ASSESS AND TEACH, DAIRY TECHNICIAN/TRACK WATCHMAN TO OBSERVE AND TEACH AND PROVIDE EDUCATION ON PAIN MANAGEMENT TECHNIQUES.] Future Scheduled Test FALL REDUC TION MANAGEMENT; RN TO ASSESS AND OBSERVE, TRACK WATCHMAN/DAIRY TECHNICIAN TO OBSERVE FALL RISK FACTORS AND EDUCATE PATIENT/CAREGIVER ON STRATEGIES TO MINIMIZE THE RISK OF FALLING. [code = FALL REDUCTION MANAGEMENT; RN TO ASSESS AND OBSERVE, TRACK WATCHMAN/DAIRY TECHNICIAN TO OBSERVE FALL RISK FACTORS AND EDUCATE PATIENT/CAREGIVER ON STRATEGIES TO MINIMIZE THE RISK OF FALLING.] Future Scheduled Test NEUROLOGIC AL SYSTEM MANAGEMENT; RN TO ASSESS AND TEACH, DAIRY TECHNICIAN/TRACK WATCHMAN TO OBSERVE AND TEACH RELATED TO ALTERED NEUROLOGICAL STATUS TO MINIMIZE COMPLICATIONS AND REDUCE HOSPITALIZATION. [code = NEUROLOGICAL SYSTEM MANAGEMENT; RN TO ASSESS AND TEACH, DAIRY TECHNICIAN/TRACK WATCHMAN TO OBSERVE AND TEACH RELATED TO ALTERED NEUROLOGICAL STATUS TO MINIMIZE COMPLICATIONS AND REDUCE HOSPITALIZATION.] Future Scheduled Test CEREBRAL V ASCULAR ACCIDENT MANAGEMENT; RN/DAIRY TECHNICIAN/TRACK WATCHMAN TO PROVIDE SKILLED TEACHING AND MANAGEMENT OF POST CEREBRAL VASCULAR ACCIDENT. [code = CEREBRAL VASCULAR ACCIDENT MANAGEMENT; RN/DAIRY TECHNICIAN/TRACK WATCHMAN TO PROVIDE SKILLED TEACHING AND MANAGEMENT OF POST CEREBRAL VASCULAR ACCIDENT.] Future Scheduled Test DIABETES M ANAGEMENT; RN TO ASSESS AND TEACH, DAIRY TECHNICIAN/TRACK WATCHMAN TO OBSERVE AND TEACH INSTRUCTIONS OF DIABETIC CARE TO INCLUDE: DIET CCHO, CARDIAC SKIN CARE, SIGNS AND SYMPTOMS OF HYPO/HYPERGLYCEMIA, PROPER ADMINISTRATION OF DIABETIC MEDICATION. RN/DAIRY TECHNICIAN/TRACK WATCHMAN TO INSTRUCT ON DIABETIC FOOT CARE AND MONITOR FOR SKIN LESIONS ON LOWER EXTREMITIES. BLOOD GLUCOSE TESTING 3X DAILY. RN TO ASSESS AND TEACH, DAIRY TECHNICIAN/TRACK WATCHMAN TO OBSERVE AND TEACH PATIENT/CAREGIVER ABILITY TO PERFORM AND RECORD BLOOD GLUCOSE TESTING ORDERED AND TO REPORT ABNORMAL FINDINGS TO PHYSICIAN. RN/DAIRY TECHNICIAN/TRACK WATCHMAN MAY PERFORM BLOOD GLUCOSE TEST NEEDED. RN/DAIRY TECHNICIAN/TRACK WATCHMAN TO REPORT TO PHYSICIAN BLOOD GLUCOSE READINGS GREATER THAN 200 OR LESS THAN 70 RN/DAIRY TECHNICIAN/TRACK WATCHMAN TO INSTRUCT PATIENT ON IMPORTANCE OF HGBA1C MONITORING, KIDNEY FUNCTION TEST, EYE AND FOOT EXAMS. [code = DIABETES MANAGEMENT; RN TO ASSESS AND TEACH, DAIRY TECHNICIAN/TRACK WATCHMAN TO OBSERVE AND TEACH INSTRUCTIONS OF DIABETIC CARE TO INCLUDE: DIET CCHO, CARDIAC SKIN CARE, SIGNS AND SYMPTOMS OF HYPO/HYPERGLYCEMIA, PROPER ADMINISTRATION OF DIABETIC MEDICATION. RN/DAIRY TECHNICIAN/TRACK WATCHMAN TO INSTRUCT ON DIABETIC FOOT CARE AND MONITOR FOR SKIN LESIONS ON LOWER EXTREMITIES. BLOOD GLUCOSE TESTING 3X DAILY. RN TO ASSESS AND TEACH, DAIRY TECHNICIAN/TRACK WATCHMAN TO OBSERVE AND TEACH PATIENT/CAREGIVER ABILITY TO PERFORM AND RECORD BLOOD GLUCOSE TESTING ORDERED AND TO REPORT ABNORMAL FINDINGS TO PHYSICIAN. RN/DAIRY TECHNICIAN/TRACK WATCHMAN MAY PERFORM BLOOD GLUCOSE TEST NEEDED. RN/DAIRY TECHNICIAN/TRACK WATCHMAN TO REPORT TO PHYSICIAN BLOOD GLUCOSE READINGS GREATER THAN 200 OR LESS THAN 70 RN/DAIRY TECHNICIAN/TRACK WATCHMAN TO INSTRUCT PATIENT ON IMPORTANCE OF HGBA1C MONITORING, KIDNEY FUNCTION TEST, EYE AND FOOT EXAMS.] Future Scheduled Test RN/TRACK WATCHMAN/DAIRY TECHNICIAN TO PERFORM/TEACH PATIENT/CAREGIVER WOUND CARE TO SUPERFICIAL TRAUMA TO LEFT ANTERIOR SKIN CLEANSE WITH WOUNDCLEANSER, APPLY COLLAGEN COVER WITH OPTIFOAM CHANGE DRESSING TWICE WEEKLY AND PRN FOR SOILAGE OR DISPLACEMENT TO DO TREATMENT IN NURSING ABSENCE [code = RN/TRACK WATCHMAN/DAIRY TECHNICIAN TO PERFORM/TEACH PATIENT/CAREGIVER WOUND CARE TO SUPERFICIAL TRAUMA TO LEFT ANTERIOR SKIN CLEANSE WITH WOUNDCLEANSER, APPLY COLLAGEN COVER WITH OPTIFOAM CHANGE DRESSING TWICE WEEKLY AND PRN FOR SOILAGE OR DISPLACEMENT TO DO TREATMENT IN NURSING ABSENCE] Future Scheduled Test SPEECH THE RAPIST TO EVALUATE FOR SPEECH AND SWALLOWING DIFFICULTIES. AGENCY MAY PERFORM A RESUMPTION OF CARE VISIT FOLLOWING ANY HOSPITAL ADMISSION. OT TO EVALUATE, OBSERVE / ASSESS, AND MONITOR, LACE ROLLER TO OBSERVE AND MONITOR, PROVIDE SKILLED THERAPEUTIC INTERVENTION, ACTIVITY, EDUCATION, AND TRAINING TO ADDRESS; BATHING/SHOWERING (OT/KELSEA) DRESSING (OT/LACE ROLLER) BED TRANSFERS (OT/LACE ROLLER) TOILET TRANSFER (OT/LACE ROLLER) BATH/SHOWER TRANSFER (OT/LACE ROLLER) ADAPTIVE EQUIPMENT/DURABLE MEDICAL EQUIPMENT MANAGEMENT(OT/LACE ROLLER) HOME ACTIVITY / EXERCISE PROGRAM (OT/KELSEA) POSTURAL CONTROL/BALANCE (OT/LACE ROLLER) THERAPEUTIC EXERCISE (OT/LACE ROLLER) OT/KELSEA TO MONITOR AND EDUCATE ON OXYGEN SATURATION DURING ADLS/IADLS, NOTIFY PHYSICIAN AND/OR THE RN CLINICAL FUNERAL PLANNER FOR PHYSICIAN NOTIFICATION AND IF O2 SATS BELOW 90% AFTER 10 MIN OF REST. OT/KELSEA MAY EDUCATE ON PAIN MANAGEMENT CLINICALLY INDICATED. OT / KELSEA TO EDUCATE ON CVA SELF-MANAGEMENT [code = SPEECH THERAPIST TO EVALUATE FOR SPEECH AND SWALLOWING DIFFICULTIES. AGENCY MAY PERFORM A RESUMPTION OF CARE VISIT FOLLOWING ANY HOSPITAL ADMISSION. OT TO EVALUATE, OBSERVE / ASSESS, AND MONITOR, KELSEA TO OBSERVE AND MONITOR, PROVIDE SKILLED THERAPEUTIC INTERVENTION, ACTIVITY, EDUCATION, AND TRAINING TO ADDRESS; BATHING/SHOWERING (OT/LACE ROLLER) DRESSING (OT/LACE ROLLER) BED TRANSFERS (OT/LACE ROLLER) TOILET TRANSFER (OT/LACE ROLLER) BATH/SHOWER TRANSFER (OT/LACE ROLLER) ADAPTIVE EQUIPMENT/DURABLE MEDICAL EQUIPMENT MANAGEMENT(OT/KELSEA) HOME ACTIVITY / EXERCISE PROGRAM (OT/LACE ROLLER) POSTURAL CONTROL/BALANCE (OT/LACE ROLLER) THERAPEUTIC EXERCISE (OT/LACE ROLLER) OT/KELSEA TO MONITOR AND EDUCATE ON OXYGEN SATURATION DURING ADLS/IADLS, NOTIFY PHYSICIAN AND/OR THE RN CLINICAL FUNERAL PLANNER FOR PHYSICIAN NOTIFICATION AND IF O2 SATS BELOW 90% AFTER 10 MIN OF REST. OT/LACE ROLLER MAY EDUCATE ON PAIN MANAGEMENT CLINICALLY INDICATED. OT / KELSEA TO EDUCATE ON CVA SELF-MANAGEMENT] Goal Patient Goal - G ET BACK TO NORMAL MUCH POSSIBLE, WALKING WITHOUT A DEVICE, SPEECH BETTER, COOKING, HOUSEWORK Goal Provider Goal - A PLAN OF CARE WILL BE ESTABLISHED THAT MEETS THE PATIENT S NEEDS. PATIENT WILL DEMONSTRATE OXYGEN SATURATION WITHIN NORMAL LIMITS OR PATIENT S OPTIMAL LEVEL ESTABLISHED BY THE PHYSICIAN THROUGHOUT CARE. CHANGES TO CO-MORBID CONDITIONS AND ANY NEW CONDITIONS WILL BE IDENTIFIED AND REPORTED TO THE PHYSICIAN. Goal Provider Goal - PATIENT/CAREGIVER TO VERBALIZE, AND CONSISTENTLY DEMONSTRATE EFFECTIVE, SAFE MANAGEMENT OF MEDICATION INCLUDING KNOWLEDGE OF EFFECTIVENESS, POTENTIAL SIDE EFFECTS AND DRUG REACTIONS AND WHEN TO CONTACT THE APPROPRIATE CARE PROVIDER. PATIENT/CAREGIVER WILL BE ABLE TO VERBALIZE UNDERSTANDING OF MEDICATION REGIMEN AND ACCURATELY TAKE MEDICATIONS PRESCRIBED WITHOUT ADVERSE EFFECTS BY EOE Goal Provider Goal - PATIENT/CAREGIVER WILL VERBALIZE UNDERSTANDING OF SIGNS AND SYMPTOMS THAT PUT THE PATIENT AT RISK FOR HOSPITALIZATION /EMERGENCY ROOM VISITS, WHEN TO NOTIFY NURSE/PHYSICIAN OF COMPLICATIONS/DECLINE AND WHEN TO CALL 911. Goal Provider Goal - PATIENT / CAREGIVER WILL VERBALIZE/DEMONSTRATE UNDERSTANDING OF MEASURES TO MANAGE ALTERED CARDIOVASCULAR STATUS BY EOE. Goal Provider Goal - PATIENT / CAREGIVER WILL VERBALIZE/DEMONSTRATE AN ABILITY TO ADHERE TO SELF-MANAGEMENT OF HF TO MINIMIZE COMPLICATIONS AND AVOID HOSPITALIZATION BY END OF EPISODE. Goal Provider Goal - PATIENT / CAREGIVER WILL VERBALIZE/DEMONSTRATE AN ABILITY TO ADHERE TO SELF-MANAGEMENT OF HTN TO MINIMIZE COMPLICATIONS AND AVOID HOSPITALIZATION BY END OF EPISODE. Goal Provider Goal - PATIENT / CAREGIVER WILL VERBALIZE / DEMONSTRATE UNDERSTANDING OF PAIN CONTROL MEASURES BY EOE Goal Provider Goal - PATIENT/CAREGIVER WILL VERBALIZE/DEMONSTRATE UNDERSTANDING OF FALL RISK FACTORS AND IMPLEMENT STRATEGIES TO MINIMIZE FALL RISK. PATIENT/CAREGIVER WILL VERBALIZE/DEMONSTRATE AN ABILITY TO ADHERE TO FALL REDUCTION SELF-MANAGEMENT AND LIFE-STYLE CHANGES BY EOE Goal Provider Goal - PATIENT / CAREGIVER WILL VERBALIZE/DEMONSTRATE UNDERSTANDING OF MEASURES TO MANAGE ALTERED NEUROLOGICAL STATUS BY EOE. Goal Provider Goal - PATIENT / CAREGIVER WILL VERBALIZE/DEMONSTRATE CARE AND SELF-MANAGEMENT OF CVA TO MINIMIZE COMPLICATIONS AND AVOID HOSPITALIZATION BY END OF EPISODE. Goal Provider Goal - PATIENT / CAREGIVER WILL VERBALIZE / DEMONSTRATE AN ABILITY TO ADHERE TO SELF-MANAGEMENT OF DIABETES MANAGEMENT BY EOE. Goal Provider Goal - PATIENT / CAREGIVER WILL VERBALIZE/DEMONSTRATE ABILITY TO PERFORM WOUND CARE. WOUND STATUS WILL IMPROVE EVIDENCED BY A DECREASE IN SIZE, DRAINAGE, ABSENCE OF INFECTION, AND DECREASED PAIN BY EOE. Goal Provider Goal - OT LTG: PATIENT WILL DEMONSTRATE IMPROVED ABILITY TO PERFORM BATHING/SHOWERING AND REDUCE CAREGIVER BURDEN FROM UNABLE TO SUP WITHIN 8 WEEKS OT STG: PATIENT WILL DEMONSTRATE IMPROVED ABILITY TO PERFORM UPPER BODY DRESSING TO REDUCE CAREGIVER BURDEN FROM MIN A TO IND WITHIN 4 WEEKS OT LTG: PATIENT WILL DEMONSTRATE IMPROVED ABILITY TO PERFORM LOWER BODY DRESSING TO REDUCE CAREGIVER BURDEN FROM MAX A TO SET UP WITHIN 8 WEEKS OT LTG: PATIENT WILL DEMONSTRATE IMPROVED ABILITY TO PERFORM BED TRANSFERS IN ORDER TO REDUCE RISK OF SKIN BREAKDOWN AND TO IMPROVE PARTICIPATION IN ADLS FROM MIN A TO IND WITHIN 8 WEEKS OT LTG: PATIENT WILL DEMONSTRATE IMPROVED ABILITY TO PERFORM TOILET TRANSFERS TO REDUCE FALL RISK AND RISK OF INCONTINENCE AND UTI DEVELOPMENT FROM MIN A TO IND WITHIN 8 WEEKS OT LTG: PATIENT WILL DEMONSTRATE IMPROVED ABILITY AND SAFETY TO PERFORM BATH/SHOWER TRANSFER FROM UNABLE TO SUP WITHIN 8 WEEKS OT LTG: PATIENT WILL DEMONSTRATE IMPROVED ABILITY TO MANAGE BED BAR DURING SELF-CARE FROM UNABLE TO IND WITHIN 8 WEEKS IN ORDER TO CONFIDENCE WITH BED TRANSFER. OT LTG: PATIENT WILL DEMONSTRATE IMPROVED POSTURAL CONTROL AND DECREASED FALL RISK EVIDENCED BY AN IMPROVEMENT IN FUNCTIONAL REACH SCORE FROM 4 TO 8 WITHIN 8 WEEKS IN ORDER TO DECREASE RISK OF FALLING OT LTG: PATIENT WILL DEMONSTRATE INDEPENDENTLY DEMONSTRATE BUE EXERCISES FOR IMPROVED BUE MUSCLE STRENGTH EVIDENCED BY AN IMPROVEMENT IN MMT/FUNCTIONAL STRENGTH FROM 4/5 TO 5/5 WITHIN 8 WEEKS IN ORDER TO IMPROVE INDEPENDENCE WITH FUNCTIONAL TRANSFERS OT LTG: PATIENT WILL MAINTAIN OXYGEN SATURATION WITHIN PHYSICIAN ORDERED PARAMETERS THROUGHOUT THE EPISODE OF CARE. OT LTG: PATIENT WILL DEMONSTRATE UNDERSTANDING OF PAIN MANAGEMENT TECHNIQUES NEEDED DURING EPISODE OF CARE OT GOAL: PATIENT/CAREGIVER WILL BE VERBALIZE UNDERSTANDING OF A CVA, SIGNS/SYMPTOMS TO REPORT, WELL SELF-MANAGEMENT AND LIFE-STYLE CHANGES BY END OF EPISODE. Encounters Start Date/Time End Date/Time Encounter Type Admission Type Attending Clinicians Care Facility Care Department Encounter ID Discharge Date Discharge Status Discharge Condition Discharge Reason Percent Goals Met 2025-08-08 00:00:00 2025-10-06 00:00:00 Outpatient NEW ADMISSION ROLO CALIX [facility] [id number] 8.33
== END 2025-09-03 13:56 | disposition home or self-care (01) ==
LOC: HO.HKASLDS 13:55
PROVIDERS: PCP Internal Medicine; Visit Provider Student in an Organized Health Care Education/Training Program
DX: Z13.9 Encounter for screening, unspecified (principal); Z23 Encounter for immunization; E11.319 Type 2 diabetes mellitus with unspecified diabetic retinopathy without macular edema; E11.22 Type 2 diabetes mellitus with diabetic chronic kidney disease; I13.0 Hypertensive heart and chronic kidney disease with heart failure and stage 1 through stage 4 chronic kidney disease, or unspecified chronic kidney disease; N18.9 Chronic kidney disease, unspecified; I50.9 Heart failure, unspecified; K21.9 Gastro-esophageal reflux disease without esophagitis; Z79.82 Long term (current) use of aspirin; Z79.899 Other long term (current) drug therapy
CPT/HCPCS: 36415; 80053; 80061; 81001; 81003; 82607; 82652; 82746; 83036; 83735; 84443; 85025; 86706; 86780; 86803; 87086; 87088; 87186; 87340; 87389; 90471; 90656; 96127

== ENCOUNTER 2025-09-03 13:55 | Outpatient (AMB) | payer BC, MEDICARE, SELFPAY ==
--- NOTE | 2025-09-03 13:59 | A.OFFPC_ITS ---
Vital Signs 09/03/25 14:02 Height 5 ft 3.78 in Weight 132 lb 8 oz BMI 22.9 BP 187/85 H Blood Pressure Location Rt brachial Position Sitting Respiration 16 Pulse 77 Pulse Source Pulse Oximeter Temp 97.6 F Temp Source Oral Pulse Oximetry (%) 99 Oxygen Delivery Method Room Air Intake Visit Reasons: COLOR ADVISER - Stroke Mule Packer Required: No Accompanied by: Self / Same As Patient Allergies No Known Allergies Allergy (Verified 09/03/25 14:01) Tobacco use date assessed: 09/03/25 Fall risk assessment: No Falls in past year Dental Screening Dental Screen Date: 09/03/25 Did you have a dental visit in the last 12 months?: Yes Did you have a dental problem in the last 6 months where you did not have access to dental care?: No Was dental information given to patient?: Patient has dentist HPI HPI Comments History of Present Illness Details Consent Patient was informed and verbally consented to the use of an ambient scribe for clinic note documentation during this visit. History of Present Illness The patient is a 69-year-old female presenting for follow-up after a recent stroke and to establish primary care. Cerebrovascular Accident: The patient experienced her first stroke on July 19, which was diagnosed as a bilateral cerebellar and left occipital lobe infarct. She was hospitalized and subsequently transferred to an inpatient rehabilitation facility on July 22, from which she was discharged on August 07. A workup in the hospital included cardiac monitoring for four days, which did not detect atrial fibrillation, and carotid imaging, which was noted to be without problems. The patient currently receives weekly speech therapy, physical therapy, and occupational therapy, and has a visiting nurse for vital sign checks. Her main residual deficit is walking weakness, requiring a walker, though she is making progress and is now able to ambulate with assistance and perform all activities of daily living. She does not have a neurologist. Diabetes Mellitus: The patient has a history of diabetes, previously managed by her particleboard factory worker, Dr. Metz, with Farxiga and 14 units of insulin. Farxiga was discontinued in March due to concerns about its effect on her kidneys. Following her recent hospitalization for the stroke, her insulin was also discontinued. She is not currently on any medication for diabetes, and her blood sugar levels are considered decent without medication. Her last HbA1c was 6.1%. She has an upcoming appointment with her particleboard factory worker in September. Chronic Kidney Disease: The patient has a diagnosis of Stage 4 chronic kidney disease. She experienced an episode of kidney failure in March, attributed to hypercalcemia from excessive Tums intake for heartburn. She was hospitalized for 3-4 days, treated with IV fluids, and did not require dialysis. Congestive Heart Failure: The patient was first diagnosed with congestive heart failure about four years ago during hospitalizations for multiple operations on a shattered right ankle. The specific type of heart failure is unknown. She is followed by a pcat instructor, Dr. Yeager, with an appointment scheduled. She is not currently on any specific heart failure medications, such as Entresto. Gastroesophageal reflux disease: The patient has a history of GERD and previously experienced constant heartburn, which led her to take excessive amounts of Tums. This resulted in hypercalcemia and kidney failure. She now takes pantoprazole for this condition. Chronic Leg Wound: The patient has a lesion on her leg that has been present for quite a while, first appearing around the time she had an external fixator for her ankle fracture four years ago. Visiting nurses have been monitoring and measuring the lesion, and it has not increased in size. Diabetic Retinopathy: The patient reports a diagnosis of retinopathy for which she receives injections in her eyes. She sees an barbecue cook, Dr. Dennis, but had to cancel her most recent appointment due to her stroke. Surgical History: - Five operations on the right ankle tommy roximately four years ago. Medications: - Sennosides, for constipation - Docusate, for constipation - Multivitamin - Pantoprazole, for heartburn - Metoprolol, for heart/blood pressure - Aspirin - Atorvastatin 20 mg, for hyperlipidemia - Hydralazine 25 mg TID, for blood press ure Social History: - The patient's is present for t he visit and is highly involved in her care, assisting with scheduling and daily exercises. - Nutritional intake includes Glucerna s hakes, of which she consumes about two p er day, due to not eating as much as she normally would. - Functional Status: The patient is now able to dress herself, perform her own showering while seated, and manage toileting independently. - Mobility: The patient gets in and out of the car easily. - Level of Activity: The patient receive s physical therapy, occupational therapy, and speech therapy weekly. - Exercise: Her assists her with daily exercises that include walking, crawling, arm planks, squats, and using 2-pound weights, which is in addition to her formal physical therapy. - Home Care: The patient receives home s ervices from a visiting nurse, who checks her vitals. Diagnostic Results: - Labs: Last A1c was 6.1%. Review of Systems - Constitutional: Reports fatigue, wanti ng to sleep more. - HEENT: Reports feeling stuffed up co nstantly. - Gastrointestinal: Reports history of c onstant heartburn, now controlled on medication. - Neurological: Reports walking weakness as a deficit from her stroke. 10-point ROS reviewed and negative excep t as noted in HPI Past Medical History - Cerebrovascular accident (Bilateral ce rebellar and left occipital lobe infarct) on July 19 - Congestive heart failure, diagnosed ~4 years ago - Type 2 Diabetes Mellitus - Stage 4 Chronic Kidney Disease - Acute kidney failure secondary to hype rcalcemia in March - Hypertension - Hyperlipidemia - Gastroesophageal Reflux Disease (GERD) - Right ankle fracture requiring five op erations ~4 years ago - Diabetic retinopathy Health Maintenance - Discussed influenza vaccination, which the patient will receive today. - The patient has not had a recent mammo gram or colonoscopy, and discussion of these screenings is deferred to the next visit. - The patient has a pending ophthalmolog y appointment for retinopathy, which will be held off on until after cardiology and neurology consultations are complete. Physical Exam General: Well-appearing, in no acute distress. Vital signs: Blood pressure today was 187. HEENT: Normocephalic, atraumatic. PERRLA, EOMI. Conjunctiva clear, sclera anicteric. Oropharynx clear, mucous membranes moist. TMs not visible due to earwax bilaterally. Neck: Supple, no lymphadenopathy, no thyromegaly, no JVD or carotid bruits. Cardiovascular: RRR, normal S1/S2, no murmurs, rubs, or gallops. Peripheral pulses 2+ and symmetric. No edema. Respiratory: Lungs clear to auscultation bilaterally, no wheezes, rales, or rhonchi. Normal effort. Abdomen: Soft, non-tender, non-distended. Normoactive bowel sounds. No hepatosplenomegaly, no masses. MSK: Full range of motion, no joint swelling or deformity. . Patient uses a walker for assistance due to unsteadiness. Skin: Warm, dry, intact. No rashes, lesions, or pallor. Noted wound on leg, referred to wound care. Neuro: Alert and oriented x3. Cranial nerves II-XII intact. Strength 5/5 throughout. Sensation intact. Reflexes 2+ symmetric. . Patient has difficulty balancing and requires assistance for walking. difficulty with speech Psych: Appropriate mood and affect. Normal judgment and insight. Plan 1. Cerebrovascular Accident - A neurology referral will be placed fo r specialist follow-up. - Continue with current physical, occupa tional, and speech therapies. 2. Chronic Leg Wound - A referral to wound care will be place d for evaluation and management of the chronic lesion on her leg. 3. Cerumen Impaction - Drops (Debrox) will be prescribed to u se five drops in each ear twice a day to soften the wax. 4. General Health And Coordination Of Ca re - Ordered a comprehensive blood panel to day to establish a baseline. - Patient will follow up with her cardio logist and particleboard factory worker as scheduled. - Request medical records from her jet aguilar to ensure coordinated care. - Patient will receive an influenza vacc ine today. - Deferring routine health screenings (m ammogram, colonoscopy) and ophthalmology follow-up until after urgent consultations are completed. - Follow-up appointment in two weeks to review lab results. Discussion Notes I had a detailed discussion with the patient and her about her complex medical history, recent stroke, and current status. I explained that we would start by gathering baseline information via a comprehensive blood panel. I have put in referrals to Neurology for her stroke follow-up and to Wound Care for the persistent lesion on her leg. We discussed the priority of seeing her specialists, particularly the upcoming pcat instructor appointment and the new neurology consult, before proceeding with other routine care. Therefore, we will hold off on her ophthalmology follow-up, mammogram, and colonoscopy for now. I informed them she should get her flu shot today. For the cerumen impaction found on exam, I am prescribing ear drops and provided instructions on how to use them. We will follow up in two weeks to review the lab results and discuss next steps. Patient Instructions - Please go to the lab in our building t o have your blood drawn today. - You will receive a flu shot in the off ice today. - You will receive phone calls to schedu le new appointments with a neurologist and a mechanical integrity specialist. - Please use the prescribed ear drops as directed: put 5 drops in each ear in the morning and at night to help break up the ear wax. - When you shower, let warm water run in to your ears to help flush out the soft ened wax. - Continue with your scheduled physical, occupational, and speech therapy appointments. - Keep your upcoming appointment with fermin morrow heart doctor (pcat instructor). - We will hold off on scheduling your ey e appointment, mammogram, and colonoscopy for now. - Please return to the clinic in 2 weeks to go over your lab results. Medical Decision Making The patient is a 69-year-old female with a complex medical history including a recent cerebellar and occipital stroke, congestive heart failure, stage 4 CKD, and diabetes, presenting to establish primary care. She is accompanied by her asa santillan, who is a reliable historian and primary caregiver. The primary goals of this visit were to understand her recent hospitalization, coordinate with her existing specialists, address any new complaints, and establish a baseline for ongoing management. Given her recent stroke, a neurology referral is critical for specialist follow-up and secondary prevention management. The chronic, non-healing lesion on her leg warrants a wound care consultation to rule out underlying pathology and establish a treatment plan. Her diabetes appears well-controlled off medication post-hospitalization, with a recent A1c of 6.1%, which justifies the decision to continue monitoring without resuming insulin or other agents at this time, pending her endocrinology follow- up. I ordered a comprehensive metabolic panel and complete blood count to assess her current renal function, electrolytes, and hematologic status, which is important given her CKD and recent hospitalizations. The decision was made to prioritize consultations with cardiology and neurology before pursuing routine health maintenance like mammography and colonoscopy, to ensure stability of her primary acute issues first. The cerumen impaction was addressed with a prescription for Debrox to improve patient comfort and allow for a complete ear exam in the future. A follow-up in two weeks is scheduled to review results and integrate findings from any specialist consultations that may have occurred. Total Time Statement 30 min Total time spent caring for the patient today includes pre-visit chart review, documentation, review of laboratory and diagnostic imaging results, medication reconciliation, medically necessary evaluation, counseling on diagnoses, care coordination, ordering appropriate tests and medications, review of tests performed by other providers, reporting test results to the patient, and communication with other healthcare providers. [facility] Medical History (Updated 09/04/25 @ 19:34 by Gage Lowe MD) Diabetic retinopathy GERD (gastroesophageal reflux disease) Chronic kidney disease Skin ulcer Heart failure Diabetes type 2 Hypertension History of stroke Family History (Updated 09/03/25 @ 14:02 by Esequiel Dahl MA) Father No problems noted. Mother No problems noted. Social History Housing: House Patient Tobacco Use Status: Never used Tobacco service: No Current occupational status: retired Cognitive needs: Yes Hearing needs: No Vision needs: Yes (rx glasses) Questionnaire PHQ-9 Over the last 2 weeks, how often have you been bothered by any of the following problems? 1. Little interest or pleasure in doing things: not at all 2. Feeling down, depressed, or hopeless: not at all 3. Trouble falling or staying asleep, or sleeping too much: not at all 4. Feeling tired or having little energy: nearly every day 5. Poor appetite or overeating: more than half the days 6. Feeling bad about yourself - or that you are a failure or have let yourself or your family down: not at all 7. Trouble concentrating on things, such as reading the newspaper or watching television: not at all 8. Moving or speaking so slowly that other people could have noticed. Or the opposite - being so fidgety or restless that you have been moving around a lot more than usual: more than half the days 9. Thoughts that you would be better off or of hurting yourself in some way: not at all Total score: 7 Depression Screening Interpretation: Negative Depression Screening Done: Yes Source: Developed by Drs. Rajesh Delgado, Gayle Michelle, Neo Gandhi and colleagues, with an educational lindsay from [employer]. Thrive Questionnaire I am a: Patient What is your living situation today?: I have a steady place to live Within the past 12 months, did the food you bought not last and you didn't have the money to get more?: Never true Within the past 12 months, did you worry whether your food would run out before you got money to buy more?: Never true Do you have trouble paying for medicines?: No Do you have trouble getting transportation to medical appointments?: No Do you have trouble paying your heating and electricity bill?: No Do you have trouble taking care of your child, family member or friend?: Yes Are you currently unemployed and looking for a job?: No Are you interested in more education?: No Please select the resources that you would like help with: None Currently or been in a relationship where the following occur: No concerns reported THRIVE Score: 0 AUDIT C Alcohol Use Questionnaire (AUDIT-C) 1. How often do you have a drink containing alcohol?: Never Total Score: 0 HERMILO-7 AMB Questionnaire HERMILO-7 Feeling nervous, anxious, or on edge: 2 = More than half the days Not being able to stop or control worryin = Not at all Worrying too much about different things: 2 = More than half the days Trouble relaxin = More than half the days Being so restless that it is hard to sit still: 0 = Not at all Becoming easily annoyed or irritable: 0 = Not at all Feeling afraid as if something awful might happen: 0 = Not at all Total HERMILO-7 score (0-4 normal; 5-9 mild; 10-14 moderate; 15-21 severe): 6 Source: Developed by Drs. Rajesh Delgado, Gayle Michelle, Neo Gandhi and colleagues, with an educational lindsay from [employer]. Physical exam (Primary Care) Vital Signs: Last Vital Signs Temp 97.6 F 09/03/25 14:02 Pulse 77 09/03/25 14:02 Resp 16 09/03/25 14:02 BP 187/85 H 09/03/25 14:02 Pulse Ox 99 09/03/25 14:02 Oxygen Delivery Method Room Air 09/03/25 14:02 BMI result Body Mass Index 22.9 Tobacco/Smoking Status: Tobacco use Status Tobacco use date assessed 09/03/25 09/03/25 14:09 Patient Tobacco Use Status Never used Tobacco 09/03/25 14:09 PHQ-9: PHQ-9 Score PHQ-9: Total score 7 09/04/25 09:05 Depression Screening Interpretation: Negative Currently or been in a relationship where the following occur: No concerns reported Office Procedures Flu Questionnaire Does the patient have a severe egg allergy?: No Does the patient have severe life threatening allergies?: No Does the patient have a fever or illness today?: No Has the patient ever had Guillain-F[place] Syndrome?: No Has the patient ever had any past reaction to a flu shot?: No Immunizations Fluarix [id number] (PF) 45 mcg (15 mcg x 3)/0.5 mL IM syringe Performing Provider: Gage Lowe MD Performing Location: [facility] Administered by: Willy Curtis CMA on 09/03/25 15:06 Dose Route Admin Location Dispensed Lot Number Expiration Date NDC [employer] 0.5 mL IM Left Deltoid 0.5 mL [id number] 04/16/26 17543-701-14 [employer] 0.5 mL IM Left Deltoid 0.5 mL [id number] 04/16/26 83163-996-64 [employer] VIS Given Date VIS Provided VIS Publication Date 09/03/25 Single Vaccine 24 Eligibility Eligibility Date Funding Source [facility] Eligible-Medicaid 09/03/25 Private Coding Level of Care Code New Pt Level 4 (54038) Diagnoses History of stroke Z86.73 Hypertension I10 Diabetes type 2 E11.9 Heart failure I50.9 Chronic kidney disease N18.9 GERD (gastroesophageal reflux disease) K21.9 Diabetic retinopathy E11.319 Assessment & Plan Assessment & Plan (1) History of stroke: Code(s): Z86.73 - Personal history of transient ischemic attack (TIA), and cerebral infarction without residual deficits Category: Medical (2) Hypertension: Code(s): I10 - Essential (primary) hypertension Category: Medical (3) Diabetes type 2: Code(s): E11.9 - Type 2 diabetes mellitus without complications Category: Medical (4) Heart failure: Code(s): I50.9 - Heart failure, unspecified Category: Medical (5) Chronic kidney disease: Code(s): N18.9 - Chronic kidney disease, unspecified Category: Medical (6) GERD (gastroesophageal reflux disease): Code(s): K21.9 - Gastro-esophageal reflux disease without esophagitis Category: Medical (7) Diabetic retinopathy: Code(s): E11.319 - Type 2 diabetes mellitus with unspecified diabetic retinopathy without macular edema Category: Medical Plan Orders: Orders Lipid Panel 09/03/25 Z13.9 - Encounter for screening, unspecified Magnesium 09/03/25 Z13.9 - Encounter for screening, unspecified Complete Blood Count Auto Diff 09/03/25 Z13.9 - Encounter for screening, unspecified Hepatitis B Surface Antigen 09/03/25 Z13.9 - Encounter for screening, unspecified Syphilis Screen 09/03/25 Z13.9 - Encounter for screening, unspecified Comprehensive Met. Panel 09/03/25 Z13.9 - Encounter for screening, unspecified Hepatitis C Antibody 09/03/25 Z13.9 - Encounter for screening, unspecified TSH reflex Free T4 09/03/25 Z13.9 - Encounter for screening, unspecified HIV Ab/Ag 09/03/25 Z13.9 - Encounter for screening, unspecified UA CC w/rflx Micro + Cult 09/03/25 Z13.9 - Encounter for screening, unspecified Vitamin B12 and Folate 09/03/25 Z13.9 - Encounter for screening, unspecified Hemoglobin A1c 09/03/25 Z13.9 - Encounter for screening, unspecified Vitamin D 1,25 dihydroxy 09/03/25 Z13.9 - Encounter for screening, unspecified Hepatitis B Surface Antibody 09/03/25 Z13.9 - Encounter for screening, unspecified Influenza [id number] Immunization 09/03/25 Z23 - Encounter for immunization Referrals Neurology Referral Z86.73 - Personal history of transient ischemic attack (TIA), and cerebral infarction without residual deficits Wound Care Referral L98.499 - Non-pressure chronic ulcer of skin of other sites with unspecified severity
[2025-09-03 14:02] VITALS: BP 187/85; PULSE 77; RESP 16; TEMP 36.4; O2SAT 99; BMI 22.9
== END 2025-09-03 15:06 | disposition home or self-care (01) ==
LOC: HO.HMCFMS 13:56
PROVIDERS: PCP Internal Medicine; Visit Provider Student in an Organized Health Care Education/Training Program
DX: Z86.73 Personal history of transient ischemic attack (TIA), and cerebral infarction without residual deficits (principal); I12.9 Hypertensive chronic kidney disease with stage 1 through stage 4 chronic kidney disease, or unspecified chronic kidney disease; E11.319 Type 2 diabetes mellitus with unspecified diabetic retinopathy without macular edema; I50.9 Heart failure, unspecified; N18.9 Chronic kidney disease, unspecified; K21.9 Gastro-esophageal reflux disease without esophagitis

== ENCOUNTER 2025-09-17 13:50 | Outpatient (AMB) | payer MEDICARE, SELFPAY ==
[2025-09-17 13:56] VITALS: BP 160/62; PULSE 75; TEMP 36.9; O2SAT 99; BMI 22.5
--- NOTE | 2025-09-17 13:56 | A.OFFPC_ITS ---
Vital Signs 09/17/25 13:56 Height 5 ft 3.78 in Weight 130 lb BMI 22.5 BP 160/62 H Blood Pressure Location Rt brachial Position Sitting Pulse 75 Pulse Source Pulse Oximeter Temp 98.4 F Temp Source Oral Pulse Oximetry (%) 99 Oxygen Delivery Method Room Air Intake Visit Reasons: 2 wk - lab review Content Developer Required: No Accompanied by: Self / Same As Patient Allergies No Known Allergies Allergy (Verified 09/17/25 13:56) Medication List - Last Reconciled 09/17/25 by Gage Lowe MD ammonium lactate 12% 1 appl topical DAILY ascorbic acid (vitamin C) 500 mg PO DAILY aspirin 81 mg PO DAILY atorvastatin (Lipitor) 20 mg PO BEDTIME carbamide peroxide 6.5% (Debrox) 5 drps otic (ears) Q12H 4 days docusate sodium 100 mg PO BID ergocalciferol (vitamin D2) 1,250 mcg PO QWEEK ferrous sulfate 324 mg PO DAILY hydralazine 25 mg PO TID metoprolol succinate ER 100 mg PO DAILY multivitamin 1 tab PO DAILY pantoprazole 40 mg PO DAILY sennosides (senna) 17.2 mg (2 x 8.6 mg) PO BEDTIME Tobacco use date assessed: 09/17/25 Fall risk assessment: No Falls in past year Last assessed Fall Risk: 09/17/25 Dental Screening Dental Screen Date: 09/17/25 Did you have a dental visit in the last 12 months?: Yes Did you have a dental problem in the last 6 months where you did not have access to dental care?: No Was dental information given to patient?: Patient has dentist HPI HPI Comments History of Present Illness Details History of Present Illness The patient is a 69 year old individual presenting for a follow-up visit to review lab results and manage chronic conditions. Anemia of Chronic Kidney Disease: The patient has a history of anemia, with recent lab work indicating low red blood cells, hemoglobin, and hematocrit. The patient has taken iron supplements in the past. The anemia is noted to be correlated with the patient's chronic kidney disease. Chronic Kidney Disease, Stage 4: The patient has a history of kidney disease and was previously hospitalized for kidney failure, which was attributed to excessive consumption of Tums for heartburn. The patient has not previously seen a double needle operator lockstitch as an outpatient, though they were seen by one during hospitalization. Recent labs confirm the patient has chronic kidney disease stage 4. Elevated Liver Enzymes: Recent lab results show slightly elevated liver enzymes. The patient reports having had a liver ultrasound in [facility], but the records are not available. Hypertriglyceridemia: The patient's lab results show triglycerides at 193 mg/dL, which is slightly elevated from the target of below 150 mg/dL. Dietary habits include avoiding sodas or other sugary drinks. Vitamin D Deficiency: Lab results show a vitamin D level of 9, which is below the normal range of 18- 72. Asymptomatic Bacteriuria: The patient denies symptoms of a urinary tract infection, such as urinary frequency or dysuria. There is a history of a UTI found during a hospitalization for a stroke, for which the patient was treated with an antibiotic. Lab results indicate bacteria in the urine. Cerumen Impaction: The patient has been using ear drops to soften earwax prior to the visit. The patient reports fighting the application of the drops. Basal Cell Carcinoma: The patient has a wound that has been present for a couple of years. The patient was seen by a wound doctor who identified it as a basal cell carcinoma and recommended a dermatology consultation for removal, deferring a biopsy. Medications: - Senna, two tablets for constipation. - Two laxatives (stool softeners) for co nstipation. Social History: - Diet: The patient consumes prunes and prune juice to manage constipation and is avoiding sweet drinks and sodas. - Exercise: The patient is actively part icipating in physical therapy and reports it is going very well. Diagnostic Results: - Complete Blood Count: Low red blood ce lls, hemoglobin, and hematocrit, consistent with anemia. - Basic Metabolic Panel: Sodium, potassi um, and chloride levels are normal. - Kidney Function: Consistent with chron ic kidney disease stage 4. - Liver Function Tests: Liver enzymes ar e slightly elevated. - Lipid Panel: Total cholesterol 153 mg/ dL, LDL 73 mg/dL, HDL 39 mg/dL, and t riglycerides 193 mg/dL. - Vitamin D: 9 (low). - Other Labs: Vitamin B12, folate, and t hyroid function are normal. - Infectious Disease Screen: Negative fo r syphilis, hepatitis B, hepatitis C, and HIV. - Urinalysis: Positive for bacteria (asy mptomatic bacteriuria). Past Medical History - Anemia - Chronic kidney disease - Hospitalization for acute kidney failu re secondary to excessive Tums intake for heartburn. - Stroke, unspecified date. - Psoriasis - Basal cell carcinoma, present for a co uple of years. Health Maintenance - Follow-up with gis analyst developer completed, no changes made. - The patient has an upcoming appointmen t with endocrinology. - The patient has a follow-up appointmen t with a wound doctor on Wednesday. - A neurology appointment is scheduled or February. - The patient is undergoing physical [facility]. [facility] Medical History (Updated 09/17/25 @ 16:50 by Gage Lowe MD) Basal cell carcinoma Cerumen impaction Asymptomatic bacteriuria Vitamin D deficiency Hypertriglyceridemia Anemia in chronic kidney disease Elevated liver enzymes Diabetic retinopathy GERD (gastroesophageal reflux disease) Chronic kidney disease Skin ulcer Heart failure Diabetes type 2 Hypertension History of stroke Family History Father No problems noted. Mother No problems noted. Social History Housing: House Patient Tobacco Use Status: Never used Tobacco service: No Current occupational status: retired Cognitive needs: Yes Hearing needs: No Vision needs: Yes (rx glasses) Questionnaire PHQ-9 Over the last 2 weeks, how often have you been bothered by any of the following problems? 1. Little interest or pleasure in doing things: not at all 2. Feeling down, depressed, or hopeless: not at all 3. Trouble falling or staying asleep, or sleeping too much: not at all 4. Feeling tired or having little energy: nearly every day 5. Poor appetite or overeating: more than half the days 6. Feeling bad about yourself - or that you are a failure or have let yourself or your family down: not at all 7. Trouble concentrating on things, such as reading the newspaper or watching television: not at all 8. Moving or speaking so slowly that other people could have noticed. Or the opposite - being so fidgety or restless that you have been moving around a lot more than usual: more than half the days 9. Thoughts that you would be better off or of hurting yourself in some way: not at all Total score: 7 Depression Screening Interpretation: Negative Depression Screening Done: Yes Source: Developed by Drs. Rajesh Delgado, Gayle Michelle, Noe Gandhi and colleagues, with an educational lindsay from [employer]. Thrive Questionnaire Date Thrive assessed: 09/17/25 I am a: Patient What is your living situation today?: I have a steady place to live Within the past 12 months, did the food you bought not last and you didn't have the money to get more?: Never true Within the past 12 months, did you worry whether your food would run out before you got money to buy more?: Never true Do you have trouble paying for medicines?: No Do you have trouble getting transportation to medical appointments?: No Do you have trouble paying your heating and electricity bill?: No Do you have trouble taking care of your child, family member or friend?: Yes Are you currently unemployed and looking for a job?: No Are you interested in more education?: No Please select the resources that you would like help with: None Currently or been in a relationship where the following occur: No concerns reported THRIVE Score: 0 AUDIT C Alcohol Use Questionnaire (AUDIT-C) 1. How often do you have a drink containing alcohol?: Never Total Score: 0 HERMILO-7 AMB Questionnaire HERMILO-7 Date HERMILO - 7 assessed: 09/17/25 Feeling nervous, anxious, or on edge: 2 = More than half the days Not being able to stop or control worryin = Not at all Worrying too much about different things: 2 = More than half the days Trouble relaxin = More than half the days Being so restless that it is hard to sit still: 0 = Not at all Becoming easily annoyed or irritable: 0 = Not at all Feeling afraid as if something awful might happen: 0 = Not at all Total HERMILO-7 score (0-4 normal; 5-9 mild; 10-14 moderate; 15-21 severe): 6 Source: Developed by Drs. Rajesh Delgado, Gayle Michelle, Neo Gandhi and colleagues, with an educational lindsay from [employer]. Review of Systems Narrative Review of Systems - Constitutional: Reports feeling very good. - HEENT: Reports improved hearing after ear lavage. - Neurological: Reports transient dizziness during the ear lavage procedure, which improved afterward. - Genitourinary: Denies dysuria or urinary frequency. - Skin: Has a wound under the care of a sales operations specialist. 10-point ROS reviewed and negative except as noted in HPI Physical exam (Primary Care) Vital Signs: Last Vital Signs Temp 98.4 F 09/17/25 13:56 Pulse 75 09/17/25 13:56 BP 160/62 H 09/17/25 13:56 Pulse Ox 99 09/17/25 13:56 Oxygen Delivery Method Room Air 09/17/25 13:56 BMI result Body Mass Index 22.5 Tobacco/Smoking Status: Tobacco use Status Tobacco use date assessed 09/17/25 09/17/25 13:58 Patient Tobacco Use Status Never used Tobacco 09/17/25 13:58 PHQ-9: PHQ-9 Score PHQ-9: Total score 7 09/17/25 16:51 Depression Screening Interpretation: Negative Thrive Assessment: Date of Thrive Assessment Date Thrive assessed 09/17/25 09/17/25 13:58 Currently or been in a relationship where the following occur: No concerns reported Narrative Physical Exam General: Well-appearing, in no acute distress. Vital signs: Within normal limits. HEENT: Normocephalic, atraumatic. PERRLA, EOMI. Conjunctiva clear, sclera anicteric. Oropharynx clear, mucous membranes moist. TMs intact bilaterally. Ears cleaned, no visible wax obstruction. Neck: Supple, no lymphadenopathy, no thyromegaly, no JVD or carotid bruits. Cardiovascular: RRR, normal S1/S2, no murmurs, rubs, or gallops. Peripheral pulses 2+ and symmetric. No edema. Respiratory: Lungs clear to auscultation bilaterally, no wheezes, rales, or rhonchi. Normal effort. Abdomen: Soft, non-tender, non-distended. Normoactive bowel sounds. No hepatosplenomegaly, no masses. MSK: Full range of motion, no joint swelling or deformity. Normal gait. Skin: Warm, dry, intact. No rashes, lesions, or pallor. Basal cell carcinoma noted, referral to dermatology made. Neuro: Alert and oriented x3. Cranial nerves II-XII intact. Strength 5/5 throughout. Sensation intact. Reflexes 2+ symmetric. Normal coordination and gait. Slight dizziness noted post ear irrigation, resolved. Psych: Appropriate mood and affect. Normal judgment and insight. Office Procedures Flu Questionnaire Does the patient have a severe egg allergy?: No Does the patient have severe life threatening allergies?: No Does the patient have a fever or illness today?: No Has the patient ever had Guillain-[place] Syndrome?: No Has the patient ever had any past reaction to a flu shot?: No Immunizations Fluarix [id number] (PF) 45 mcg (15 mcg x 3)/0.5 mL IM syringe Performing Provider: Gage Lowe MD Performing Location: [facility] Documented (not given) by: Esthela Mendez CMA on 09/17/25 14:14 Reason Not Given: Received Previously Coding Level of Care Code Est Pt Level 3 (06936) Diagnoses Anemia in chronic kidney disease N18.9; D63.1 Chronic kidney disease N18.9 Elevated liver enzymes R74.8 Hypertriglyceridemia E78.1 Vitamin D deficiency E55.9 Asymptomatic bacteriuria R82.71 Cerumen impaction H61.20 Basal cell carcinoma C44.91 Assessment & Plan Assessment & Plan (1) Anemia in chronic kidney disease: Code(s): N18.9 - Chronic kidney disease, unspecified; D63.1 - Anemia in chronic kidney disease Category: Medical (2) Chronic kidney disease: Code(s): N18.9 - Chronic kidney disease, unspecified Category: Medical (3) Elevated liver enzymes: Code(s): R74.8 - Abnormal levels of other serum enzymes Category: Medical (4) Hypertriglyceridemia: Code(s): E78.1 - Pure hyperglyceridemia Category: Medical (5) Vitamin D deficiency: Code(s): E55.9 - Vitamin D deficiency, unspecified Category: Medical (6) Asymptomatic bacteriuria: Code(s): R82.71 - Bacteriuria Category: Medical (7) Cerumen impaction: Code(s): H61.20 - Impacted cerumen, unspecified ear Category: Medical (8) Basal cell carcinoma: Code(s): C44.91 - Basal cell carcinoma of skin, unspecified Category: Medical Plan Consent The patient provided verbal consent for bilateral ear lavage. The procedure, which involves using sterile water, was explained. The patient was informed that dizziness is a normal and temporary side effect that can occur if the water hits the tympanic membrane. Patient was informed and verbally consented to the use of an ambient scribe for clinic note documentation during this visit. Plan 1. Anemia Of Chronic Kidney Disease - Will order iron studies to further evaluate the anemia. - Prescribed iron and vitamin C to be taken together, one hour before or two hours after a meal. - Counseled the patient on potential side effects, including constipation and dark stools. - Recommended MiraLAX as needed for constipation, in addition to increasing water and fiber intake via prunes and prune juice. 2. Chronic Kidney Disease, Stage 4 - Explained the diagnosis of chronic kidney disease stage 4 and the goal to avoid dialysis. - Discussed the correlation between chronic kidney disease and anemia. - Placed a referral to nephrology for further management. 3. Elevated Liver Enzymes - Ordering an ultrasound of the liver to establish a baseline and ensure no underlying pathology. - Advised the patient that this is not an emergent study. 4. Hypertriglyceridemia - Reassured the patient that the current level of 193 is not a major concern for pancreatitis, but will be monitored. - Advised to cut down on sweet drinks and sodas, which should help lower the triglycerides. 5. Vitamin D Deficiency - Prescribed vitamin D supplementation, one pill per week. - A 12-week supply was sent, sufficient for three months. - Plan to repeat labs in three months to reassess vitamin D levels. 6. Asymptomatic Bacteriuria - As the patient is asymptomatic, no antibiotic treatment will be initiated to avoid promoting antibiotic resistance. 7. Cerumen Impaction - Performed bilateral ear lavage, which successfully removed a significant amount of cerumen. - Advised to continue using ear drops on one side where a small amount of wax remains. 8. Basal Cell Carcinoma - The patient is currently under the care of a wound doctor and has an upcoming referral to dermatology for management, which is appropriate. 9. Follow-Up - Recommended a follow-up appointment in three months to review progress and repeat lab work. Discussion Notes I reviewed the patient's recent lab results, which showed anemia, stage 4 chronic kidney disease, mildly elevated liver enzymes, hypertriglyceridemia, and vitamin D deficiency. I explained that the anemia is likely related to the chronic kidney disease, as the kidneys are responsible for producing the hormone that stimulates red blood cell production. I placed a referral to a double needle operator lockstitch for management of the CKD and ordered an ultrasound of the liver as a baseline due to the elevated enzymes. I prescribed iron with vitamin C for the anemia and vitamin D for the deficiency, and we discussed strategies to manage potential constipation from the iron, including MiraLAX and increased fiber. I also performed a bilateral ear lavage for cerumen impaction, as the patient h ad been using softening drops as instructed. I explained that the transient dizziness experienced during the procedure is a normal side effect from the water stimulating the tympanic membrane. We discussed the patient's ongoing care for a wound identified as basal cell carcinoma by a specialist, and I affirmed the plan to see dermatology. I recommended a follow-up visit in three months to reassess labs and overall status. Patient Instructions - Take one iron pill and one vitamin C pill together in the morning, either one hour before you eat or two hours after you eat. - The iron may make your stools dark, which is normal. - To prevent constipation from the iron, you can take MiraLAX, drink plenty of water, and eat high-fiber foods like prunes. - Take one vitamin D pill every Wednesday for the next three months. - You will get a call to schedule an ultrasound of your liver. This is not an emergency. - A referral has been made for you to see a kidney specialist (double needle operator lockstitch). - Your ears have been cleaned, but continue using the ear drops in the one ear that still has a little wax in the back. - Continue with your plan to see the wound doctor and the synthetic department supervisor for the spot on your skin. - Please schedule a follow-up appointment to see me in three months. - If you have any issues before then, please make an appointment to come in sooner. Medical Decision Making The patient is a 69-year-old individual presenting for management of multiple chronic conditions identified on recent lab work. The patient's anemia, with low hemoglobin and hematocrit, is most likely anemia of chronic disease, given the concurrent diagnosis of stage 4 chronic kidney disease. Management will include iron and vitamin C supplementation, with a plan to check iron studies to confirm etiology. The diagnosis of chronic kidney disease stage 4, based on kidney function labs and a history of acute kidney failure, necessitates specialist care. A referral to nephrology is critical to slow disease progression and prevent the need for dialysis. The mildly elevated liver enzymes warrant investigation with a baseline liver ultrasound to rule out underlying structural abnormalities, though this is not an emergent concern. The patient's hypertriglyceridemia is mild and does not pose an immediate risk for pancreatitis; therefore, lifestyle modification with reduced sugar intake is the appropriate initial step. Significant vitamin D deficiency requires high-dose weekly supplementation with a plan to recheck levels in three months. The presence of bacteria in the urine without associated symptoms (dysuria, frequency) is defined as asymptomatic bacteriuria, which does not require antibiotic treatment in this clinical context to avoid fostering antibiotic resistance. The bilateral cerumen i mpaction was addressed with in-office lavage, leading to improved hearing. The patient's care plan for a skin lesion, diagnosed as basal cell carcinoma by a sales operations specialist, includes a dermatology referral, which is the correct course of action. A follow-up in three months is appropriate to monitor these multiple active issues. Total Time Statement 20 min Total time spent caring for the patient today includes pre-visit chart review, documentation, review of laboratory and diagnostic imaging results, medication reconciliation, medically necessary evaluation, counseling on diagnoses, care coordination, ordering appropriate tests and medications, review of tests performed by other providers, reporting test results to the patient, and communication with other healthcare providers. Orders: Orders AMB Cerumen Removal Today H61.20 - Impacted cerumen, unspecified ear Influenza [id number] Immunization Today Z23 - Encounter for immunization US abdomen limited Today R74.8 - Abnormal levels of other serum enzymes Referrals Nephrology Referral N18.9 - Chronic kidney disease, unspecified Medications: New ergocalciferol (vitamin D2) 1,250 mcg PO QWEEK 12 caps 0RF ascorbic acid (vitamin C) 500 mg PO DAILY 90 tabs 0RF ferrous sulfate 324 mg PO DAILY 90 tabs 0RF
--- OUTSIDE RECORDS SUMMARY | 2025-09-17 17:19 | XMS_ITS | Data Portability ---
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 She clinically and radiographically looks great. Her Charcot is certainly stable and she does seem to have a well consolidated ankle fusion. She has no limitations, although requires no bracing or orthotics, and may participate in activities as she is able. We discussed that she may always have some limitations on that side secondary to her fusion. She does certainly have collapse through her midfoot on the contralateral side. She reports she has never had any issues with this. She is aware that if she develops any increasing erythema or callus or certainly any ulcer formation, she needs to follow-up with me immediately. She is otherwise going to follow-up with me as needed. Not available 02/18/2023 13:30:29 Plan of Treatment Reminders Order Date Submit Date Provider Last Modified By Organization Details Last Modified Time Details Appointments None record ed. Lab None record ed. Referral None record ed. Procedures None record ed. Surgeries None record ed. Imaging XR, ankle, 3 or more view 023 02/19/20 23 [email or web address] [facility], [address], [address], [place], [address], 3 11:58:11 Medication Orders None record ed. Patient TargetsNo targets recorded. Patient Instructions Encounter Date Encounter Id Patient Instructions Last Modified By Organization Details Last Modified Time 02/18/2023 [id number] views of the right ankle obtained weightbearing demonstrate a consolidated ankle fusion with some synostosis femur tibia and fibula more proximally. She has excellent radiographic alignment. Not available 02/18/2023 13:31:43 Reason for Referral None Reported. Problems Name Problem SNOMED Code Status Onset Date Resolution Date Notes Provider Name and Address Organization Details Recorded Time Ankle pain 804167988 Active 2020 Ankle pain Not Available [facility] 5 23:22:46 Charcot's arthropat hy 778836154 Active 2020 Charcot ankle, right Not Available [facility] 5 23:22:45 Infective arthritis of right ankle 02632401658 44327 Active 2020 Septic arthritis of right ankle Not Available [facility] 5 23:22:46 Chronic diastolic heart failure 982165038 Active 2020 CHF (congesti ve heart failure), NYHA class II, chronic, diastolic Not Available [facility] 5 23:22:44 Acute on chronic combined systolic and diastolic heart failure 42550059227 9103 Active 2020 CHF (congesti ve heart failure), NYHA class I, acute on chronic, combined Not Available [facility] 5 23:22:45 Pain 58006235 Active 2020 Pain Not Available [facility] 5 23:22:45 Hyperglyc emia due to type 2 diabetes mellitus 39736188125 9109 Active 2020 Type 2 diabetes mellitus with hyperglyc emia, without long-term current use of insulin Not Available [facility] 5 23:22:44 Problem Notes None recorded. Medical Equipment None Reported. Allergies No known drug allergies Medications Name Sig Start Date Stop Date Status Note LastModified by Organization Details LastModified Time metformin 500 mg tablet Take 1 tablet (500 mg total) by mouth 2 (two) times a day with meals. 04/08 completed Not Available Not Available Not Available acetaminoph en 325 mg tablet Take 2 tablets (650 mg total) by mouth every 6 (six) hours as needed for pain. 2020 active Not Available Not Available Not Avai lable atorvastati n 20 mg tablet TAKE 1 TABLET BY MOUTH EVERY DAY IN THE EVENING 2023 active Not Available Not Available Not Avai lable bumetanide 2 mg tablet TAKE 2 TABLETS (4 MG TOTAL) BY MOUTH DAILY. 2023 active Not Available Not Available Not Avai lable polyethylen e glycol 3350 17 gram oral powder packet Take 17 g by mouth daily. 11/04 completed Not Available Not Available Not Available aspirin 325 mg tablet Take 1 tablet (325 mg total) by mouth daily. 11/04 completed Not Available Not Available Not Available ceftriaxone 2 gram intravenous solution Inject 2 g into the vein daily for 41 days. 04/03 completed Not Available Not Available Not Available fluconazole 150 mg tablet Take 1 tablet (150 mg total) by mouth once for 1 dose. 03/15 completed Not Available Not Available Not Available metoprolol succinate ER 50 mg tablet,exte nded release 24 hr Take 1 tablet (50 mg total) by mouth daily. 2023 active Not Available Not Available Not Avai lable sennosides 8.6 mg-docusate sodium 50 mg tablet Take 1 tablet by mouth daily. 05/28 completed Not Available Not Available Not Available glipizide ER 5 mg tablet, extended release 24 hr Take 1 tablet (5 mg total) by mouth daily. 04/08 completed Not Available Not Available Not Available cefadroxil 500 mg capsule Take 1 capsule (500 mg total) by mouth 2 (two) times a day. 06/26 completed Not Available Not Available Not Available potassium chloride ER 20 mEq tablet,exte nded release(par t/cryst) Take 1 tablet (20 mEq total) by mouth daily. 05/01 completed Not Available Not Available Not Available methocarbam ol 750 mg tablet TAKE 1 TABLET (750 MG TOTAL) BY MOUTH 4 (FOUR) TIMES A DAY. 11/04 completed Not Available Not Available Not Available amlodipine 10 mg tablet Take 1 tablet (10 mg total) by mouth daily. 06/25 completed Not Available Not Available Not Available ferrous sulfate 325 mg (65 mg iron) tablet Take 1 tablet (325 mg total) by mouth every morning with breakfast for 30 days. 05/17 completed Not Available Not Available Not Available metoprolol tartrate 50 mg tablet Take 1 tablet (50 mg total) by mouth 2 (two) times a day. 03/05 completed Not Available Not Available Not Available sertraline 25 mg tablet Take 25 mg by mouth every night at bedtime. 11/04 completed Not Available Not Available Not Available omeprazole 20 mg capsule,del ayed release Take 20 mg by mouth daily. 05/28 completed Not Available Not Available Not Available lisinopril 5 mg tablet Take 1 tablet (5 mg total) by mouth daily. 04/15 completed Not Available Not Available Not Available metoprolol succinate ER 25 mg tablet,exte nded release 24 hr Take 1 tablet every day by oral route. active Not Available Not Available No t Available lisinopril 40 mg tablet Take 1 tablet (40 mg total) by mouth daily. 03/05 completed Not Available Not Available Not Available spironolact one 50 mg tablet Take 1 tablet (50 mg total) by mouth daily. 2023 active Not Available Not Available Not Avai lable oxycodone 5 mg tablet Take 1 tablet (5 mg total) by mouth every night at bedtime as needed for pain. 05/28 completed Not Available Not Available Not Available Lipitor active Not Available Not Avail able Not Available Bumex active Not Available Not Availa ble Not Available dapaglifloz in propanediol 10 mg tablet Take 1 tablet (10 mg total) by mouth daily. 01/11 completed Not Available Not Available Not Available Tresiba FlexTouch U-100 insulin 100 unit/mL (3 mL) subcutaneou s pen INJECT 12 UNITS UNDER THE SKIN DAILY. 2023 active Not Available Not Available Not Avai lable insulin aspart (niacinamid e)(U-100) 100 unit/mL (3 mL) subcu cartridge Inject by subcutane ous route. active Not Available Not Available No t Available sitagliptin 100 mg tablet Take 1 tablet (100 mg total) by mouth daily. 05/11 completed Not Available Not Available Not Available Vitals Date Recorded Body weight Body mass index (BMI) Body height Provider Name and Address Organization Details Last Updated DateTime 02/18/2023 76076.97 g 23.2 kg/m2 162.[address] [facility], 02/18/2023 11:12:12 Date Recorded Body height Heart rate Body mass index (BMI) Body weight Oxygen saturation Systolic And Diastolic Provider Name and Address Organization Details Last Updated DateTime 4 165.1 cm 82 /min 24.3 kg/m2 45145 g 100 % 140/82 mm[Hg] Not Available [facility] 5 23:26:07 Social History None recorded. Functional Status Question Answer Note LastModified by Organization D etails LastModified Time What is your level of alcohol consumption? None [email or web address] Information not available 02/18/2023 Mental Status None recorded. Family History Nothing Reported. Medical History Condition Response Coronary Artery Disease N Gout N Hyperthyroidism N MRSA N Blood Transfusion N Emphysema N Depression N COPD N Hypothyroidism N Pacemaker N Vascular Disease N Gastrointestinal Disease N Anxiety Disorder N Autoimmune disease N Arthritis N Cancer N Stroke N High Cholesterol N Neurologic Disorder N Liver Disease N Organ Transplant N Rheumatoid Arthritis N Arrhythmia N Fibromyalgia N Kidney Disease N Allergies/Hayfever N Adverse Reaction to Anesthesia N Thyroid Problems N Anemia N Brain Injury N Heart Attack (MA) N Osteopenia N Diabetes Y Bleeding Disorder N Seizures/Epilepsy N AIDS/HIV N Congestive Heart Failure (CHF) N Asthma N Amputation N Reflux/GERD N Sleep Apnea N Hepatitis N Aneurysm N Heart Disease N Pulmonary Embolism N Hypertension Y Osteoporosis N Gynecological HistoryNo gynecological history recorded. Obstetrics History GPAL:G 0 P 0 0 0 0 Past Encounters Encounter ID Performer Location Encounter Start Date Encounter Closed Date Diagnosis/Indication Diagnosis SNOMED-CT Code Diagnosis ICD10 Code Diagnosis IMO Codes Diagnosis Note [id number] MD FRANSISCA Chi [address] [place] [id number] 02/18/2023 10:48:37 02/18/2023 11:25:01 Charcot's joint of foot 680643181 M14.671 Health Concerns Section Related Observation LastModified by Organization Detai ls LastModified Time None Recorded Concern Status LastModified by Organization Details LastModified Time None Recorded Advance Directives Directive None Recorded Payers Insurance Date Sequence Insurance Name Policy Number Policy Santiago Covered Member ID Santiago Member ID Guarantor Name 02/16/2023 2 [place]PPLE[place]) [id number] Nayely Pro [id number] Nayely Pro 02/16/2023 1 [place] Nayely Pro [id number] Nayely Pro Notes Date Note Type Note Provider Name and Address Organization Details Recorded Time 02/18/2023 text/html Date of Surgery: 02/15/2021: Right ankle irrigation and debridement, application uniplanar external fixator02/18/2021: Right ankle irrigation and debridement (Nick)02/19/2021: Irrigation and debridement right ankle, right ankle fusion, application multiplane external fixator, removal uniplanar external fixator04/09/21: 1. Revision ring external fixator right lower extremity2. Irrigation and debridement right medial ankle wound 3 x 1.53. Application wound vac06/20/21: Removal ring external fixatorNayely Pro is a 66 y.o. female who presents today now approximately 2 years status post her previous ankle surgeries. She reports that she is overall doing well. She feels like the side and her right leg gets tired more easily than the left and she is limited in how far she can walk, but is able to wear regular shoewear. She was recently in [place] for 6 weeks and was able to walk there in a limited fashion although she does have some difficulty with inclines and uneven ground. Her most recent hemoglobin A1c is 6.2%. She is working with a personal banking advisor twice weekly right now. From 02/19/22 TK: presents today for follow-up now 1 year from initial surgery and about 8 months from most recent procedure. She is overall doing quite well. She is happy with her progress. She is able to ambulate without any difficulty in regular footwear. Pain is a 3/10 on average, and a 6/10 at its worst. She is no longer in physical therapy but is performing home exercises. She takes Tylenol as needed for discomfort.From 11/13/21: follow-up evaluation now nearly 5 months status post removal of her external fixator. She is ambulating in regular shoewear. She reports that her pain in her thighs has improved significantly. She also reports that her swelling has improved. However, her does report that she complains of overall diffuse body pain more than she did previously. She has continued to attend physical therapy.From 09/25/21: follow-up evaluation now approximately 3 months after removal of her external fixator. She is overall doing quite well and has been able to get into regular shoes. She is reporting thigh pain that she has had since the surgery that I was unaware of previously and reports that she frequently cries at night secondary to ongoing thigh pain but that it is slightly improving. She has been attending physical therapy twice weekly at [facility] in [place]. She denies any issues with her wounds.From 08/07/21: follow-up evaluation now 6 weeks after frame removal. She is overall doing great. She does report that she is not walking entirely normal yet and her feels that she should be exercising more, but her pain is a 2 out of 10. She feels that her medial wound has healed. She is getting some intermittent right thigh pain.From 07/03/21: follow-up evaluation now approximately 2 weeks after removal of her ring fixator. She has kept her dressing in place. She has been partially weightbearing in her cam walker boot. Her pain is aching and shooting and a 6 out of 10. It is moderate and intermittent and improving.From 06/12/21: follow-up evaluation after her CT scan of her right lower extremity to evaluate for fusion in her frame and plan for frame removal. She reports she is overall doing quite well. Her medial wound has healed and she no longer requires any dressings or wound VAC. She reports that her pain is aching and sharp and on average of 7 at worst a 9 out of 10. It is constant and improving. She reports that she is having increased drainage over her proximal pin sites. She denies any broken pins.From 05/01/21: follow-up evaluation regarding her right ankle. She reports she has been doing quite well. She continues to use a walker and denies any issues with her pain since her revision. She has been undergoing wound VAC changes over her medial ankle but reports that her wound care nurse would like to know if she still needs it. Her pain is aching and a 2 out of 10. She does take oxycodone intermittently at night.She has recently seen her sound system installer and her blood sugar in the office was 250.From 04/17/21: follow-up evaluation regarding her right lower extremity. She was discharged from the hospital 2 days ago after being admitted after her most recent surgery with postoperative desaturation to the 80s in the PACU. Ultimately, CTA was ordered which demonstrated fluid overload with pleural effusions. She was then diuresed approximately 4 L a day over the next 6 days for acute CHF. She reports she does have a cardiology appointment next week as well as an appointment with Dr. Morton as well as her sound system installer. She does not have a primary care physician.She reports she has been walking more on her frame and her pain is a 3-7 out of 10. She reports she is overall doing well. She continues to take some oxycodone at night only.She is currently on Januvia for her diabetes.She denies any fever or chills or chest pain. She denies any issues with her pin sites.From 03/20/21: follow-up evaluation now 3 weeks postoperatively. She has been undergoing daily dressing changes and reports no fever or chills or issues.From 03/06/21: first follow-up evaluation now status post discharge from [facility]. Briefly, she was transferred from [facility] for concern for a right ankle infection consistent with infected Charcot. She is now approximately 2 weeks status post multiple surgical interventions as an attempt at limb salvage. She has been in her frame and is partial weightbearing in her frame. Her pain is aching and a 2-4 out of 10. It is mild and intermittent. 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 She does not smoke. She does not drink. Nanda Curiel MD [address], [place], [address], [place] [facility], P 02/18/2023 13:31:46 OBGyn Episode No OBEpisode recorded.
--- OUTSIDE RECORDS SUMMARY | 2025-09-17 17:19 | XMS_ITS | Clinical Summary ---
Author Organization [facility] Address [address] [place] [address] Care Team Providers Care Engineered Wood Designer Name Role Phone Unavailable Primary Care Provider [...] hyperglycemia, without long-term current use of insulin ([facility]) 1 cartridge by Does not apply route [...] this topic Medical Devices Explanted Type Area Train Planner Device Identifier Shelf Expiration Date Model / Serial / Lot Pin Benton Edna Ii 180mm 50mm 5mm Threaded Stainless Steel - [id number] - [id number] Implanted:Qty: 2 on 02/15/2021 by Nanda Curiel MD at [facility] Explanted:Qty: 2 on 04/09/2021 at [facility] [employer] [id number] / / Description:Not present at t radha of surgery Pin Fixation Benton Transfix L300 Mm L40 Mm Od5\6 Mm Self Dril - [id number] - [id number] Implanted:Qty: 1 on 02/15/2021 by Nanda Curiel MD at [facility] Explanted:Qty: 1 on 04/09/2021 at [facility] [employer] [id number] / / Description:Not present at s tart of surgery K Wire Implanted:Qty: 7 on 02/19/2021 by Nanda Curiel MD at [facility] Explanted:Qty: 7 on 04/09/2021 by Nanda Curiel MD at [facility] Right: [employer]ia ORTHOFIX [id number] / / Usk Wire Implanted:Qty: 3 on 02/19/2021 by Nanda Curiel MD at [facility] Explanted:Qty: 3 on 04/09/2021 by Nanda Curiel MD at [facility] Right: [employer]ia ORTHOFIX [id number] / / Advance Directives For more information, please contact: [phone] Documents on File Type Date Recorded Patient Curer Acid Drum Expl anation Advance Directive and Living Will [...]
--- OUTSIDE RECORDS SUMMARY | 2025-09-17 17:19 | XMS_ITS | Data Portability ---
Author Organization [place] [facility] Address [address] [place] [address] Assessment No assessment recorded. Plan of Treatment Reminders Order Date Submit Date Provider Last Modified By Organization Details Last Modified Time Details Appointments OFFICE VISIT 15 2024 11:45A M Not available Not available Not available Lab glucose, fingersti ck, blood 2024 025 [email or web address] [facility] [address] [place], [address], [place], [address], 03/24/2025 12:14:28 hemoglobi n A1C, fingersti ck 2024 025 [email or web address] [facility] [address] [place], [address], [place], [address], 03/24/2025 12:14:28 microalbu min/creat inine, mass ratio, urine 2024 025 [email or web address] 08 [facility], [address], [place], [address], 03/22/2025 08:57:48 CMP, serum or plasma 2024 025 [email or web address] 08 [facility], [address], [place], [address], 03/22/2025 08:57:48 Referral None recorded. Procedures None recorded. Surgeries None recorded. Imaging None recorded. Medication Orders Farxiga 10 mg tablet 2024 025 [facility]acy #[id number], [address] [place], [address], 03/20/2025 12:20:04 Tresiba FlexTouch U-100 insulin 100 unit/mL (3 mL) subcutane ous pen 2024 025 [facility]armacy #[id number], [address] [place], [address], 03/20/2025 12:20:02 Patient TargetsNo targets recorded. Patient Instructions Encounter Date Encounter Id Patient Instructions Last Modified By Organization Details Last Modified Time 03/20/2025 [id number] 1. 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 That is excellent. 2. Continue with the Tresiba at 14 units Continue with the Farxiga at 10 mg. Will see each other in 6 months. I am giving you some paperwork to do blood test try to do it a week before our appointment so we can discuss the results when you are back. [email or web address] Not available 03/20/2025 12:19:25 Reason for Referral None Reported. Results Created Date Observation Date Name Description Value Unit Range Abnormal Flag Note LastModifiedBy Organization Detail LastModifiedTime 03/20/20 25 03/20/2025 hemog lobin A1C, jesue rstic k HbA1c 6.1 Not Available [facility] [address] [place] [address], [place], [address], 02/13/2025 10:30:02 03/20/20 25 03/20/2025 gluco se, finge rstic k, blood Blood Glucose: mg/dl 148 Not Available [facility] [address] [place] [address], [place], [address], 02/13/2025 10:29:57 Result Notes None recorded. Problems Name Problem SNOMED Code Status Onset Date Resolution Date Notes Provider Name and Address Organization Details Recorded Time Ankle pain 864869532 Active 2020 Ankle pain Not Available [facility] 4 00:55:57 Infective arthritis of right ankle 14491207200 45743 Active 2020 Septic arthritis of right ankle Not Available [facility] 4 00:55:56 Charcot's arthropat hy 675107947 Active 2020 Charcot ankle, right Not Available [facility] 4 00:55:57 Chronic diastolic heart failure 889024091 Active 2020 CHF (congesti ve heart failure), NYHA class II, chronic, diastolic Not Available [facility] 4 00:55:56 Acute on chronic combined systolic and diastolic heart failure 91502503884 9103 Active 2020 CHF (congesti ve heart failure), NYHA class I, acute on chronic, combined Not Available [facility] 4 00:55:56 Pain 00111080 Active 2020 Pain Not Available [facility] 4 00:55:57 Type 2 diabetes mellitus 56536213 Active 2020 Type 2 diabetes mellitus with hyperglyc emia, without long-term current use of insulin Not Available [facility] 4 00:55:56 Uncontrol led type 2 diabetes mellitus 087137176 Active 2024 [facility], [facility] 5 13:10:13 Problem Notes None recorded. Medical Equipment None Reported. Medications Name Sig Start Date Stop Date Status Note LastModified by Organization Details LastModified Time acetaminoph en 325 mg tablet Take 2 tablets (650 mg total) by mouth every 6 (six) hours as needed for pain. 2020 active Not Available Not Available Not Avai lable atorvastati n 20 mg tablet TAKE 1 TABLET (20 MG) BY MOUTH AT BEDTIME active Not Available Not Available No t Available bumetanide 2 mg tablet TAKE 2 TABLETS BY MOUTH DAILY. active Not Available Not Available No t Available metoprolol succinate ER 50 mg tablet,exte nded release 24 hr TAKE 1 TABLET BY MOUTH EVERY DAY active Not Available Not Available No t Available senna 8.6 mg tablet TAKE 2 TABLETS BY MOUTH AT BEDTIME. active Not Available Not Available No t Available metoprolol succinate ER 100 mg tablet,exte nded release 24 hr TAKE 1 TABLET BY MOUTH 1 TIME EACH DAY. DO NOT CRUSH OR CHEW. active Not Available Not Available No t Available hydralazine 25 mg tablet TAKE 1 TABLET (25 MG) BY MOUTH THREE TIMES A DAY active Not Available Not Available No t Available nifedipine ER 30 mg tablet,exte nded release TAKE 1 TABLET (30 MG TOTAL) BY MOUTH ONCE DAILY DO NOT CRUSH, CHEW OR SPLIT active Not Available Not Available No t Available aspirin 81 mg tablet,tere yed release TAKE 1 TABLET BY MOUTH EVERY DAY active Not Available Not Available No t Available ketorolac 0.5 % eye drops INSTILL 1 DROP INTO AFFECTED EYE 3 TIMES A DAY STARTING 2 DAYS PRIOR TO SURGERY CONTINUE DIRECTED 03/20 completed Not Available Not Available Not Available calcium 600 mg (as calcium carbonate 1,500 mg) tablet TAKE 1 TABLET BY MOUTH EVERY DAY active Not Available Not Available No t Available potassium chloride ER 20 mEq tablet,exte nded release(par t/cryst) TAKE 2 TABLETS BY MOUTH EVERY DAY 03/20 completed Not Available Not Available Not Available magnesium oxide 400 mg (241.3 mg magnesium) tablet TAKE 1 TABLET (400 MG TOTAL) BY MOUTH 2 TIMES A DAY active Not Available Not Available No t Available Ear Wax Removal Drops 6.5 % PLACE 5 DROPS INTO THE EARS EVERY 12 HOURS FOR 4 DAYS active Not Available Not Available No t Available sodium bicarbonate 650 mg tablet TAKE 1 TABLET BY MOUTH TWICE A DAY FOR 5 DOSES active Not Available Not Available No t Available pantoprazol e 40 mg tablet,tere yed release TAKE 1 TABLET (40 MG) BY MOUTH DAILY active Not Available Not Available No t Available metoprolol tartrate 50 mg tablet TAKE 1 TABLET BY MOUTH TWICE A DAY 04/15 completed Not Available Not Available Not Available docusate sodium 100 mg capsule TAKE 1 CAPSULE BY MOUTH TWICE A DAY active Not Available Not Available No t Available ammonium lactate 12 % topical cream APPLY TO AFFECTED AREA EVERY DAY active Not Available Not Available No t Available hydralazine 50 mg tablet TAKE 1 TABLET BY MOUTH TWICE A DAY active Not Available Not Available No t Available spironolact one 50 mg tablet TAKE 1 TABLET BY MOUTH EVERY DAY active Not Available Not Available No t Available Daily-Cristiane tablet TAKE 1 TABLET BY MOUTH 1 TIME EACH DAY. active Not Available Not Available No t Available Heartburn Relief (famotidine ) 10 mg tablet TAKE 1 TABLET BY MOUTH 1 TIME EACH DAY. active Not Available Not Available No t Available metoprolol tartrate 25 mg tablet TAKE 1 TABLET BY MOUTH TWICE A DAY 03/20 completed Not Available Not Available Not Available sitagliptin phosphate 100 mg tablet Take 1 tablet (100 mg total) by mouth daily. 05/11 completed Not Available Not Available Not Available Farxiga 10 mg tablet TAKE 1 TABLET BY MOUTH EVERY DAY 2024 active Not Available Not Available Not Avai lable Tresiba FlexTouch U-100 insulin 100 unit/mL (3 mL) subcutaneou s pen INJECT 14 UNITS UNDER THE SKIN DAILY. 2024 active Not Available Not Available Not Avai lable Sabina 2nd Gen Pen Needle 32 gauge x USE 1 PEN NEEDLE DAILY active Not Available Not Available No t Available Vitals Date Recorded Body weight Heart rate Oxygen saturation Systolic And Diastolic Provider Name and Address Organization Details Last Updated DateTime 03/20/2025 31994.71 g 80 /min 99 % 152/80 mm[Hg] Sonja Mackenzie [facility] 03/20/2025 12:04:34 Social History None recorded. Functional Status None recorded. Mental Status None recorded. Family History Nothing Reported. Medical History No medical history recorded. Gynecological HistoryNo gynecological history recorded. Obstetrics History GPAL:G 0 P 0 0 0 0 Past Encounters Encounter ID Performer Location Encounter Start Date Encounter Closed Date Diagnosis/Indication Diagnosis SNOMED-CT Code Diagnosis ICD10 Code Diagnosis IMO Codes Diagnosis Note [id number] Yuval Wheeler MD [facility] [address] [place] [address] [place] [address] 03/20/2025 11:58:03 03/20/2025 12:24:05 Uncontrolled type 2 diabetes mellitus 835214462 E11.65 88174151 The A1c level today was measured at 6.1%. She continues to take 14 units of the Tresiba and 1 tablet of Farxiga daily. So far everything moving the right direction. At this time no need to do any medication changes.Wi ll continue the same.I am giving her a blood test to be done a week before next appointmen t. Health Concerns Section Related Observation LastModified by Organization Benjamín ls LastModified Time None Recorded Concern Status LastModified by Organization Details LastModified Time None Recorded Advance Directives Directive None Recorded Payers Insurance Date Sequence Insurance Name Policy Number Policy Santiago Covered Member ID Santiago Member ID Guarantor Name 09/17/2025 2 [place] [id number] Nayely Pro [id number] Nayely Pro 09/17/2025 1 MEDICARE [place]: [place] Nayely Pro [id number] Nayely Pro Notes Date Note Type Note Provider Name and Address Organization Details Recorded Time 03/20/2025 text/html 69-year-old female with history of type 2 diabetes diagnosed when she was 59 years of age. At the time she was admitted with a fracture ankle. For many years she controlled her blood sugars with diet and exercise and started medication in 2020. 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 During her last visit the Tresiba was increased to 14 units. She continues to take 10 mg of Farxiga. Yuval Wheeler MD [address] [place], [address], [facility] 03/20/2025 13:13:42 OBGyn Episode No OBEpisode recorded.
== END 2025-09-17 14:45 | disposition home or self-care (01) ==
LOC: HO.HMCFMS 13:51
PROVIDERS: PCP Student in an Organized Health Care Education/Training Program; Visit Provider Student in an Organized Health Care Education/Training Program
DX: N18.9 Chronic kidney disease, unspecified (principal); D63.1 Anemia in chronic kidney disease; R74.8 Abnormal levels of other serum enzymes; E78.1 Pure hyperglyceridemia; E55.9 Vitamin D deficiency, unspecified; R82.71 Bacteriuria; H61.20 Impacted cerumen, unspecified ear; C44.91 Basal cell carcinoma of skin, unspecified; Z23 Encounter for immunization

== ENCOUNTER → 2025-09-17 13:50 | Outpatient (BNVA) | payer MEDICARE, SELFPAY | PROVIDERS: PCP Student in an Organized Health Care Education/Training Program; Visit Provider Student in an Organized Health Care Education/Training Program | DX: Z71.2 Person consulting for explanation of examination or test findings (principal); N18.4 Chronic kidney disease, stage 4 (severe); D63.1 Anemia in chronic kidney disease; E55.9 Vitamin D deficiency, unspecified; R74.8 Abnormal levels of other serum enzymes; E78.1 Pure hyperglyceridemia; R82.71 Bacteriuria; C44.91 Basal cell carcinoma of skin, unspecified; H61.23 Impacted cerumen, bilateral; Z13.31 Encounter for screening for depression; Z13.39 Encounter for screening examination for other mental health and behavioral disorders | CPT/HCPCS: 69209; 90471; 96127; 99212 ==

== ENCOUNTER 2025-09-21 13:30 | Outpatient (RCR) | payer MEDICARE, SELFPAY | END 2025-09-21 16:30 | disposition home or self-care (01) | LOC: HO.WCC 13:30 | PROVIDERS: PCP Student in an Organized Health Care Education/Training Program; Visit Provider Surgery Vascular Surgery | DX: C44.709 Unspecified malignant neoplasm of skin of left lower limb, including hip (principal); E11.59 Type 2 diabetes mellitus with other circulatory complications; I50.9 Heart failure, unspecified | CPT/HCPCS: 99212; 99213 ==

== ENCOUNTER 2025-10-04 15:13 | Outpatient (AMB) | payer MEDICARE, SELFPAY ==
[2025-10-04 15:17] VITALS: BP 158/60; PULSE 73; O2SAT 99; BMI 22.6
--- NOTE | 2025-10-04 15:17 | HO.NEPHOV_ITS ---
Vital Signs 10/04/25 15:17 Height 5 ft 3.78 in Weight 131 lb BMI 22.6 BP 158/60 H Blood Pressure Location Rt brachial Position Sitting Pulse 73 Pulse Source Pulse Oximeter Pulse Oximetry (%) 99 Oxygen Delivery Method Room Air Intake Visit Reasons: INP Chronic Kidney Dz Instructional Services Librarian Required: No Accompanied by: Spouse Allergies No Known Allergies Allergy (Verified 10/04/25 15:19) Medication List - Last Reconciled 10/04/25 by Yovani Han MD ammonium lactate 12% 1 appl topical DAILY ascorbic acid (vitamin C) 500 mg PO DAILY aspirin 81 mg PO DAILY atorvastatin (Lipitor) 20 mg PO BEDTIME docusate sodium 100 mg PO BID ergocalciferol (vitamin D2) 1,250 mcg PO QWEEK ferrous sulfate 324 mg PO DAILY hydralazine 25 mg PO TID linagliptin (Tradjenta) 5 mg PO DAILY metoprolol succinate ER 100 mg PO DAILY multivitamin 1 tab PO DAILY pantoprazole 40 mg PO DAILY sennosides (senna) 17.2 mg (2 x 8.6 mg) PO ONCE HPI Comments Details: The patient is a 69 year old female presenting with long-standing diabetes, chronic kidney disease, and hypertension. She has a history of a stroke in July 2025 and developed kidney failure in March. 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 The patient has a five-year history of diabetes, which is managed by an offender employment specialist. She was previously on 14 units of insulin and Farxiga, but Farxiga was discontinued due to its effects on the kidneys. Insulin was stopped after her stroke, and her blood sugars were in the high 140s to 150s. She started Trajenta 5 mg two weeks ago, and her blood sugar has since been in the 130s-140s, with a reading of 124 this morning. Regarding hypertension, her blood pressure is typically in the 120s at home but elevates to the 150s-160s in a clinical setting. A nurse visits weekly to monitor her blood pressure. Other relevant history includes a diagnosis of basal cell carcinoma, for which she is awaiting an appointment with dermatology for removal. About four years ago, she had a crack in her ankle that required surgical intervention to save her leg. She also has a history of anemia and was prescribed iron. Her current medications include hydralazine, atorvastatin, metoprolol, and Trajenta. She also takes vitamin D2 once a week, multivitamins, vitamin C, iron, and a stool softener. She does not smoke or consume alcohol. Results - Labs: Kidney function noted to be 18% in August. - Vitals: In-office blood pressure is elevated at 150-160 mmHg, while home readings are in the 120s. [facility] Medical History (Updated 09/17/25 @ 16:50 by Gage Lowe MD) Basal cell carcinoma Cerumen impaction Asymptomatic bacteriuria Vitamin D deficiency Hypertriglyceridemia Anemia in chronic kidney disease Elevated liver enzymes Diabetic retinopathy GERD (gastroesophageal reflux disease) Chronic kidney disease Skin ulcer Heart failure Diabetes type 2 Hypertension History of stroke Family History Father No problems noted. Mother No problems noted. Social History Housing: House Patient Tobacco Use Status: Never used Tobacco service: No Current occupational status: retired Cognitive needs: Yes Hearing needs: No Vision needs: Yes (rx glasses) Review of Systems Const Denies fever(s) and Denies weight loss Card Denies chest pain Resp Denies cough and Denies hemoptysis GI Denies abdominal pain, Denies diarrhea and Denies nausea Musc Denies back pain Neuro Denies focal weakness Physical Exam Exam Exam: Physical Exam General: Awake. Comfortable. HENT: Neck supple. Mucosa moist. Pulmonary: Lungs aeration equal. No rales. Cardiology: Heart S1-S2 heard. No gallop. Abdomen: Soft. Non tender. Bowel sounds normal. Neurologic: No involuntary movements. No myoclonus. Extremities: No edema. No rash. Vital Signs: Last Vital Signs Pulse 73 10/04/25 15:17 BP 158/60 H 10/04/25 15:17 Pulse Ox 99 10/04/25 15:17 Oxygen Delivery Method Room Air 10/04/25 15:17 BMI result Body Mass Index 22.6 Results Reviewed Nephrology Results: Hgb, (12.0-16.0) 9.3 g/dl L 09/03/25 WBC, (4.8-10.8) 6.1 X10*3/uL 09/03/25 Plt Count, (160-400) 213 X10*3/uL 09/03/25 Sodium, (135-145) 140 mmol/L 09/03/25 Potassium, (3.3-5.1) 4.7 mmol/L 09/03/25 Chloride, (96-108) 107 mmol/L 09/03/25 Carbon Dioxide, (22-29) 24 mmol/L 09/03/25 BUN, (9-16) 53 mg/dL H 09/03/25 Creatinine, (0.5-1.4) 2.57 mg/dL H 09/03/25 Calcium, (8.4-10.2) 9.7 mg/dL 09/03/25 Urine Protein, (Neg-Trace) Trace mg/dL 09/03/25 Assessment & Plan Assessment & Plan (1) Heart failure: Code(s): I50.9 - Heart failure, unspecified Category: Medical (2) Hypertension: Code(s): I10 - Essential (primary) hypertension Category: Medical (3) Chronic kidney disease: Code(s): N18.9 - Chronic kidney disease, unspecified Category: Medical (4) Anemia in chronic kidney disease: Code(s): N18.9 - Chronic kidney disease, unspecified; D63.1 - Anemia in chronic kidney disease Category: Medical Plan Plan 1. Chronic Kidney Disease - Stage 4 eGFR is 18 ml/mt Needs work up- DDX includes hypertensive nephrosclerosis, r/o obstruction. AGN and AIN cannot be excluded yet - To further investigate, blood tests, urine tests, and a kidney ultrasound will be ordered. - The patient was advised to continue her current medications, ensure adequate fluid intake, and avoid NSAIDs such as Aleve, Advil, and Motrin. - The upcoming abdominal ultrasound scheduled for November can be combined with the kidney ultrasound. - Follow-up is scheduled for October or early November to review the results. 2. Hypertension - Blood pressure is well-controlled at home with readings in the 120s, but elevated in the office, which may be due to stress from the visit. - No changes will be made to the current antihypertensive regimen. Stay on low salt diet 3. Type 2 Diabetes Mellitus - The patient's diabetes is managed by her offender employment specialist. - No changes to the current medication, Trajenta, will be made. 4. Basal Cell Carcinoma - The patient was advised to call the dermatology office to schedule an appointment for removal if she does not hear from them. 5. Anemia Most likely due to CKD Check Iron and reassess for need for Epogen Orders: Orders UA and rflx microscopic Today D63.1 - Anemia in chronic kidney disease, I10 - Essential (primary) hypertension, I50.9 - Heart failure, unspecified, N18.9 - Chronic kidney disease, unspecified Phosphorus Today D63.1 - Anemia in chronic kidney disease, I10 - Essential (primary) hypertension, I50.9 - Heart failure, unspecified, N18.9 - Chronic kidney disease, unspecified Anti Glomerular Basement Memb Today D63.1 - Anemia in chronic kidney disease, I10 - Essential (primary) hypertension, I50.9 - Heart failure, unspecified, N18.9 - Chronic kidney disease, unspecified Complement C3 Today D63.1 - Anemia in chronic kidney disease, I10 - Essential (primary) hypertension, I50.9 - Heart failure, unspecified, N18.9 - Chronic kidney disease, unspecified Complement C4 Today D63.1 - Anemia in chronic kidney disease, I10 - Essential (primary) hypertension, I50.9 - Heart failure, unspecified, N18.9 - Chronic kidney disease, unspecified Neutrophil Cytoplasma Ab Today D63.1 - Anemia in chronic kidney disease, I10 - Essential (primary) hypertension, I50.9 - Heart failure, unspecified, N18.9 - Chronic kidney disease, unspecified Basic Metabolic Panel Today D63.1 - Anemia in chronic kidney disease, I10 - Essential (primary) hypertension, I50.9 - Heart failure, unspecified, N18.9 - Chronic kidney disease, unspecified Complete Blood Count no Diff Today D63.1 - Anemia in chronic kidney disease, I10 - Essential (primary) hypertension, I50.9 - Heart failure, unspecified, N18.9 - Chronic kidney disease, unspecified Creatinine Urine Today D63.1 - Anemia in chronic kidney disease, I10 - Essential (primary) hypertension, I50.9 - Heart failure, unspecified, N18.9 - Chronic kidney disease, unspecified Parathyroid Hormone Intact Today D63.1 - Anemia in chronic kidney disease, I10 - Essential (primary) hypertension, I50.9 - Heart failure, unspecified, N18.9 - Chronic kidney disease, unspecified Total Protein Urine Random Today D63.1 - Anemia in chronic kidney disease, I10 - Essential (primary) hypertension, I50.9 - Heart failure, unspecified, N18.9 - Chronic kidney disease, unspecified ADAL Reflex Titer and Pattern Today D63.1 - Anemia in chronic kidney disease, I10 - Essential (primary) hypertension, I50.9 - Heart failure, unspecified, N18.9 - Chronic kidney disease, unspecified Coding Level of Care Code New Pt Level 4 (53913) Diagnoses Heart failure I50.9 Hypertension I10 Chronic kidney disease N18.9 Anemia in chronic kidney disease N18.9; D63.1
--- OUTSIDE RECORDS SUMMARY | 2025-10-04 19:14 | XMS_ITS | Continuity of Care Document ---
Author Organization [place] [facility] [address] [place] Address [address] [place] [address] Assessment No assessment recorded. Plan of Treatment Reminders Order Date Submit Date Provider Last Modified By Organization Details Last Modified Time Details Appointments OFFICE VISIT 15 2025 11:45A M Not available Not available Not available Lab hemoglobi n A1C, fingersti ck 2024 025 [email or web address] [facility] 2 [place], [address], [place], [address], 09/18/2025 11:58:29 glucose, fingersti ck, blood 2024 025 [email or web address] [facility] 2 [place], [address], [place], [address], 09/18/2025 11:58:29 Referral None recorded. Procedures None recorded. Surgeries None recorded. Imaging None recorded. Medication Orders Tradjenta 5 mg tablet 2024 025 [facility]/Pharmacy #[id number], [address] [facility], [place], [address], 09/18/2025 11:58:44 Patient TargetsNo targets recorded. Patient Instructions Encounter Date Encounter Id Patient Instructions Last Modified By Organization Details Last Modified Time 09/18/2025 [id number] Blood sugars are doing fair however I would like to start medication to prevent sugars to get much higher. I am starting the medication called Tradjenta is 1 pill to take in the morning with your first meal of the day [email or web address] Not available 09/18/2025 11:58:05 Reason for Referral None Reported. Results Created Date Observation Date Name Description Value Unit Range Abnormal Flag Note LastModifiedBy Organization Detail LastModifiedTime 09/18/2009/18/2025 hemog lobin A1C, juanita rstic k hemoglobin A1C 6.4 Not Available [facility] En 2 [place] [address], [place], [address], 09/17/2025 10:07:11 09/18/20 25 09/18/2025 gluco se, juanita rstic k, blood Blood Glucose: mg/dl 186 Not Available [facility] 2 [place] [address], [place], [address], 09/17/2025 10:07:12 Result Notes None recorded. Problems Name Problem SNOMED Code Status Onset Date Resolution Date Notes Provider Name and Address Organization Details Recorded Time Ankle pain 084577010 Active 2020 Ankle pain Not Available [facility] 4 00:55:57 Infective arthritis of right ankle 66608883655 71287 Active 2020 Septic arthritis of right ankle Not Available [facility] 4 00:55:56 Charcot's arthropat hy 753716588 Active 2020 Charcot ankle, right Not Available [facility] 4 00:55:57 Chronic diastolic heart failure 206569520 Active 2020 CHF (congesti ve heart failure), NYHA class II, chronic, diastolic Not Available [facility] 4 00:55:56 Acute on chronic combined systolic and diastolic heart failure 94183333542 9103 Active 2020 CHF (congesti ve heart failure), NYHA class I, acute on chronic, combined Not Available [facility] 4 00:55:56 Pain 85131424 Active 2020 Pain Not Available [facility] 4 00:55:57 Type 2 diabetes mellitus 35170686 Active 2020 Type 2 diabetes mellitus with hyperglyc emia, without long-term current use of insulin Not Available [facility] 4 00:55:56 Uncontrol led type 2 diabetes mellitus 557712718 Active 2024 [facility], [place] - [facility] 5 13:10:13 Problem Notes None recorded. Medical Equipment None Reported. Medications Name Sig Start Date Stop Date Status Note LastModified by Organization Details LastModified Time acetaminoph en 325 mg tablet Take 2 tablets (650 mg total) by mouth every 6 (six) hours as needed for pain. 09/18 completed Not Available Not Available Not Available atorvastati n 20 mg tablet TAKE 1 TABLET (20 MG) BY MOUTH AT BEDTIME active Not Available Not Available No t Available bumetanide 2 mg tablet TAKE 2 TABLETS BY MOUTH DAILY. 09/18 completed Not Available Not Available Not Available metoprolol succinate ER 50 mg tablet,exte nded release 24 hr TAKE 1 TABLET BY MOUTH EVERY DAY 09/18 completed Not Available Not Available Not Available senna 8.6 mg tablet TAKE 2 [...] DAILY DO NOT CRUSH, CHEW OR SPLIT 09/18 completed Not Available Not Available Not Available aspirin 81 mg tablet,tere yed release [...] TAKE 1 TABLET BY MOUTH EVERY DAY 09/18 completed Not Available Not Available Not Available potassium chloride ER 20 mEq tablet,exte nded release(par t/cryst) TAKE 2 TABLETS BY MOUTH EVERY DAY 03/20 completed Not Available Not Available Not Available magnesium oxide 400 mg (241.3 mg magnesium) tablet TAKE 1 TABLET (400 MG TOTAL) BY MOUTH 2 TIMES A DAY 09/18 completed Not Available Not Available Not Available ascorbic acid (vitamin C) 500 mg tablet TAKE 1 TABLET BY MOUTH EVERY DAY active Not Available Not Available No t Available Ear Wax Removal Drops 6.5 % PLACE 5 DROPS INTO THE EARS EVERY 12 HOURS FOR 4 DAYS 09/18 completed Not Available Not Available Not Available sodium bicarbonate 650 mg tablet TAKE 1 TABLET BY MOUTH TWICE A DAY FOR 5 DOSES 09/18 completed Not Available Not Available Not Available pantoprazol e 40 mg tablet,tere yed [...] 1 TABLET BY MOUTH TWICE A DAY 09/18 completed Not Available Not Available Not Available ergocalcife rol (vitamin D2) 1,250 mcg (50,000 unit) capsule TAKE 1 CAPSULE BY MOUTH ONCE WEEKLY active Not Available Not Available No t Available spironolact one 50 mg tablet TAKE 1 TABLET BY MOUTH EVERY DAY 09/18 completed Not Available Not Available Not Available Daily-Cristiane tablet TAKE 1 TABLET BY MOUTH 1 TIME EACH DAY. active Not Available Not Available No t Available Heartburn Relief (famotidine ) 10 mg tablet TAKE 1 TABLET BY MOUTH 1 TIME EACH DAY. 09/18 completed Not Available Not Available Not Available metoprolol tartrate 25 mg tablet TAKE 1 TABLET BY MOUTH TWICE A DAY 03/20 completed Not Available Not Available Not Available sitagliptin phosphate 100 mg tablet Take 1 tablet (100 mg total) by mouth daily. 05/11 completed Not Available Not Available Not Available ferrous sulfate 324 mg (65 mg iron) tablet,tere yed release TAKE 1 TABLET (324 MG) BY MOUTH DAILY active Not Available Not Available No t Available Tradjenta 5 mg tablet TAKE 1 TABLET BY MOUTH EVERY DAY active Not Available Not Available No t Available Farxiga 10 mg tablet TAKE 1 TABLET BY MOUTH EVERY DAY 09/18 completed Not Available Not Available Not Available Tresiba FlexTouch U-100 insulin 100 unit/mL (3 mL) subcutaneou s pen INJECT 14 UNITS UNDER THE SKIN DAILY. 09/18 completed Not Available Not Available Not Available Sabina 2nd Gen Pen Needle 32 gauge x USE 1 PEN NEEDLE DAILY active Not Available Not Available No t Available Vitals Date Recorded Body weight Oxygen saturation Heart rate Systolic And Diastolic Provider Name and Address Organization Details Last Updated DateTime 09/18/2025 37865.01 g 97 % 70 /min 138/76 mm[Hg] YUMIKO FERGUSON [facility] 09/18/2025 11:31:53 Social History None recorded. Functional Status None recorded. Mental Status None recorded. Family History Nothing Reported. Medical History No medical history recorded. Gynecological HistoryNo gynecological history recorded. Obstetrics History GPAL:G 0 P 0 0 0 0 Past Encounters Encounter ID Performer Location Encounter Start Date Encounter Closed Date Diagnosis/Indication Diagnosis SNOMED-CT Code Diagnosis ICD10 Code Diagnosis IMO Codes Diagnosis Note [id number] Yuval Wheeler MD [facility] [address] [place] [address] [place] [address] 09/18/2025 11:20:51 09/18/2025 12:06:51 Uncontrolled type 2 diabetes mellitus 825225577 E11.65 [id number] After her discharge from the hospital she was taken off the Farxiga and the insulin. Currently on no medication . Capillary blood sugars have been running in the 140-180 range.A1c level is still adequate however she has been experienci ng significan t changes on her renal function and has been experienci ng anemia which likely is preventing A1c level to go higher. I would like to add a medication that will not cause hypoglycem ia and can be used with the recent renal function changes. I am going to try her on Tradjenta 5 mg once daily which is not renally cleared. Health Concerns Section Related Observation LastModified by Organization Detai ls LastModified Time None Recorded Concern Status LastModified by Organization Details LastModified Time None Recorded Payers Encounter Date Sequence Insurance Name Policy Number Policy Santiago Covered Member ID Santiago Member ID Guarantor Name 09/18/2025 2 [place]) [id number] Nayely Pro [id number] Nayely Pro 09/18/2025 1 [place]ARE [place]: [place] Nayely Pro [id number] Nayely Pro Notes Date Note Type Note Provider Name and Address Organization Details Recorded Time 09/18/2025 text/html 69-year-old female with history of type 2 diabetes diagnosed when she was 59 years of age. At the time she was admitted with a fracture ankle. For many years she controlled her blood sugars with diet and exercise and started medication in 2020. 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 She has a mild speech impediment and is using a walker for ambulation. Her is coming with her and has helped her with her medical needs. She has some difficulty remembering details which her fill up the gaps. Yuval Wheeler MD [address] [place], [address], [facility] - [facility] 09/18/2025 13:08:22 OBGyn Episode No OBEpisode recorded.
--- OUTSIDE RECORDS SUMMARY | 2025-10-04 19:14 | XMS_ITS | Data Portability ---
Author Organization [place] [facility] Joanne Maldonado [place] Address [address] [place] [address] Assessment Encounter Date Assessment Date Assessment LastModified [...] view 023 02/19/20 23 [email or web address] [facility], [address], [place], [address], 3 11:58:11 Medication Orders None record ed. [...] Address Organization Details Recorded Time Ankle pain 922248051 Active 2020 Ankle pain Not Available [facility] 5 23:22:46 Charcot's arthropat hy 109884340 Active 2020 Charcot ankle, right Not Available [facility] 5 23:22:45 Infective arthritis of right ankle 52823728156 86637 Active 2020 Septic arthritis of right ankle Not Available [facility] 5 23:22:46 Chronic diastolic heart failure 177429141 Active 2020 CHF (congesti ve heart failure), NYHA class II, chronic, diastolic Not Available [facility] 5 23:22:44 Acute on chronic combined systolic and diastolic heart failure 04736696085 9103 Active 2020 CHF (congesti ve heart failure), NYHA class I, acute on chronic, combined Not Available [facility] 5 23:22:45 Pain 98878932 Active 2020 Pain Not Available [facility] 5 23:22:45 Hyperglyc emia due to type 2 diabetes mellitus 33047662313 9109 Active 2020 Type 2 diabetes mellitus with hyperglyc emia, without long-term current use of insulin Not Available [facility] 5 23:22:44 Problem Notes None recorded. Medical [...] Address Organization Details Last Updated DateTime 02/18/2023 99014.97 g 23.2 kg/m2 162.[address] [place] - [facility], 02/18/2023 11:12:12 Date Recorded Body height Heart rate Body mass index (BMI) Body weight Oxygen saturation Systolic And Diastolic Provider Name and Address Organization Details Last Updated DateTime 4 165.1 cm 82 /min 24.3 kg/m2 30107 g 100 % 140/82 mm[Hg] Not Available [facility] 5 23:26:07 Social History None recorded. Functional Status Question Answer Note LastModified by Organization D etails LastModified Time What is your level of alcohol consumption? None [email or web address] Information not available 02/18/2023 Mental Status None recorded. Family History Nothing Reported. Medical History Condition Response Coronary Artery Disease N Gout N Hyperthyroidism N Blood Transfusion N MRSA N Emphysema N Depression N COPD N Hypothyroidism N Pacemaker N Vascular Disease N Gastrointestinal Disease N Anxiety Disorder N Autoimmune disease N Arthritis N Cancer N Stroke N High Cholesterol N Neurologic Disorder N Liver Disease N Organ Transplant N Arrhythmia N Rheumatoid Arthritis N Fibromyalgia N Kidney Disease N Allergies/Hayfever N Adverse Reaction to Anesthesia N Thyroid Problems N Anemia N Brain Injury N Heart Attack ([place]) N Osteopenia N Diabetes Y Bleeding Disorder [...] Codes Diagnosis Note [id number] MD FRANSISCA Chi [address] [place] [address] 02/18/2023 10:48:37 02/18/2023 11:25:01 Charcot's joint of foot 273729604 M14.671 Health Concerns Section Related Observation LastModified by Organization Detai ls LastModified Time None Recorded Concern Status LastModified by Organization Details LastModified Time None Recorded Advance Directives Directive None Recorded Payers Insurance Date Sequence Insurance Name Policy Number Policy Santiago Covered Member ID Santiago Member ID Guarantor Name 02/16/2023 2 [place]MEDICARE SUPPLEMENT) [id number] Nayely Pro [id number] Nayely Pro 02/16/2023 1 [place]ARE [place]: N[place] Nayely Pro [id number] Nayely Pro Notes Date Note Type [...] wear regular shoewear. She was recently in [place] for 6 weeks and was able to walk there in a limited fashion although she does have some difficulty with inclines and uneven ground. Her most recent hemoglobin A1c is 6.2%. She is working with a personalized living assistant twice weekly right now. From 02/19/22 TK: [...] been attending physical therapy twice weekly at [facility] in [place]. She denies any issues with her wounds.From [...] intermittently at night.She has recently seen her child nutrition director and her blood sugar in the office [...] with Dr. Morton as well as her child nutrition director. She does not have a primary care [...] follow-up evaluation now status post discharge from [place]. Briefly, she was transferred from [facility] for concern for a right ankle [...] Nanda Curiel MD [address], [place], [address], [place] [facility] 02/18/2023 13:31:46 OBGyn Episode No OBEpisode recorded.
--- OUTSIDE RECORDS SUMMARY | 2025-10-04 19:14 | XMS_ITS | Data Portability ---
Author Organization [place] - [facility] Address [address] [place] [address] Assessment No assessment recorded. Plan of Treatment Reminders Order Date Submit Date Provider Last Modified By Organization Details Last Modified Time Details Appointments OFFICE VISIT 15 2025 11:45A M Not available Not available Not available Lab hemoglobi n A1C, fingersti ck 2024 025 [email or web address] [facility] [place], [address], [place], [address], 09/18/2025 11:58:29 glucose, fingersti ck, blood 2024 025 [email or web address] [facility] [place], [address], [place], [address], 09/18/2025 11:58:29 glucose, fingersti ck, blood 2024 025 [email or web address] [facility] [place], [address], [place], [address], 03/24/2025 12:14:28 hemoglobi n A1C, fingersti ck 2024 025 [email or web address] [facility] [place], [address], [place], [address], 03/24/2025 12:14:28 microalbu min/creat inine, mass ratio, urine 2024 025 [email or web address] 08 [facility], [address], [place], [address], 03/22/2025 08:57:48 CMP, serum or plasma 2024 025 [email or web address] 08 [facility], [address], [place], [address], 03/22/2025 08:57:48 Referral None recorded. Procedures None recorded. Surgeries None recorded. Imaging None recorded. Medication Orders Tradjenta 5 mg tablet 2024 025 [facility]/Pharmacy #[id number], [address] [place], [address], 09/18/2025 11:58:44 Farxiga 10 mg tablet 2024 025 [facility]/Pharmacy #[id number], [address] [place], [address], 09/18/2025 11:28:23 Tresiba FlexTouch U-100 insulin 100 unit/mL (3 mL) subcutane ous pen 2024 025 [id number] [address] [place], [address], 09/18/2025 11:28:57 Patient TargetsNo targets recorded. Patient Instructions Encounter Date Encounter Id Patient Instructions Last Modified By Organization Details Last Modified Time 03/20/2025 [id number] 1. Your A1c selene decker today was [...] discuss the results when you are back. Not available 03/20/2025 12:19:25 09/18/2025 [id number] Blood sugars are doing fair however I would like to start medication to prevent sugars to get much higher. I am starting the medication called Tradjenta is 1 pill to take in the morning with your first meal of the day Not available 09/18/2025 11:58:05 Reason for Referral None Reported. Results Created Date Observation Date Name Description Value Unit Range Abnormal Flag Note LastModifiedBy Organization Detail LastModifiedTime 03/20/20 25 03/20/2025 hemog lobin A1C, finge rstic k HbA1c 6.1 Not Available [facility] [address] [place] [address], [place], [address], 02/13/2025 10:30:02 03/20/20 25 03/20/2025 gluco se, finge rstic k, blood Blood Glucose: mg/dl 148 Not Available [facility] En do [address] [place] [address], [place], [address], 02/13/2025 10:29:57 09/18/20 25 09/18/2025 hemog lobin A1C, finge rstic k hemoglobin A1C 6.4 Not Available [facility] En do [address] [place] [address], [place], [address], 09/17/2025 10:07:11 09/18/20 25 09/18/2025 gluco se, finge rstic k, blood Blood Glucose: mg/dl 186 Not Available [facility] En [address] [place] [address], [place], [address], 09/17/2025 10:07:12 Result Notes None recorded. Problems Name Problem SNOMED Code Status Onset Date Resolution Date Notes Provider Name and Address Organization Details Recorded Time Ankle pain 327595431 Active 2020 Ankle pain Not Available [facility] 4 00:55:57 Infective arthritis of right ankle 81632640527 64154 Active 2020 Septic arthritis of right ankle Not Available [facility] 4 00:55:56 Charcot's arthropat hy 574588837 Active 2020 Charcot ankle, right Not Available [facility] 4 00:55:57 Chronic diastolic heart failure 396180911 Active 2020 CHF (congesti ve heart failure), NYHA class II, chronic, diastolic Not Available [facility] 4 00:55:56 Acute on chronic combined systolic and diastolic heart failure 25466865496 9103 Active 2020 CHF (congesti ve heart failure), NYHA class I, acute on chronic, combined Not Available [facility] 4 00:55:56 Pain 79723990 Active 2020 Pain Not Available [facility] 4 00:55:57 Type 2 diabetes mellitus 08232354 Active 2020 Type 2 diabetes mellitus with hyperglyc emia, without long-term current use of insulin Not Available [facility] 4 00:55:56 Uncontrol led type 2 diabetes mellitus 609025072 Active 2024 [facility] 5 13:10:13 Problem Notes None recorded. [...] 2nd Gen Pen Needle 32 gauge x 5/32 USE 1 PEN NEEDLE DAILY active Not Available Not Available No t Available Vitals Date Recorded Body weight Heart rate Oxygen saturation Systolic And Diastolic Provider Name and Address Organization Details Last Updated DateTime 03/20/2025 96136.71 g 80 /min 99 % 152/80 mm[Hg] Sonja Curtis [facility] 03/20/2025 12:04:34 Date Recorded Body weight Oxygen saturation Heart rate Systolic And Diastolic Provider Name and Address Organization Details Last Updated DateTime 09/18/2025 34613.01 g 97 % 70 /min 138/76 mm[Hg] YUMIKO FERGUSON [facility] 09/18/2025 11:31:53 Social History None recorded. Functional Status None recorded. Mental Status None recorded. Family History Nothing Reported. Medical History No medical history recorded. Gynecological HistoryNo gynecological history recorded. Obstetrics History GPAL:G 0 P 0 0 0 0 Past Encounters Encounter ID Performer Location Encounter Start Date Encounter Closed Date Diagnosis/Indication Diagnosis SNOMED-CT Code Diagnosis ICD10 Code Diagnosis IMO Codes Diagnosis Note [id number] Yuval Wheeler MD [facility] 2 [facility] [address] [place] [address] 03/20/2025 11:58:03 03/20/2025 12:24:05 Uncontrolled type 2 diabetes mellitus 313096482 E11.65 [id number] The A1c level today was measured at 6.1%. She continues to take 14 units of the Tresiba and 1 tablet of Farxiga daily. So far everything moving the right direction. At this time no need to do any medication changes.Wi ll continue the same.I am giving her a blood test to be done a week before next appointmen t. 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 During her last visit the Tresiba was increased to 14 units. She continues to take 10 mg of Farxiga. Yuval Wheeler MD [address] [place], [address], [facility] 03/20/2025 13:13:42 09/18/2025 text/html 69-year-old female with history of type 2 diabetes diagnosed when she was 59 years of age. At the time she was admitted with a fracture ankle. For many years she controlled her blood sugars with diet and exercise and started medication in 2020. 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 She has a mild speech impediment and is using a walker for ambulation. Her is coming with her and has helped her with her medical needs. She has some difficulty remembering details which her fill up the gaps. Yuval Wheeler MD [address] [place], [address], [facility] 09/18/2025 13:08:22 OBGyn Episode No OBEpisode recorded.
--- OUTSIDE RECORDS SUMMARY | 2025-10-04 19:14 | XMS_ITS ---
Author Name [facility] Organization Unknown History of Medication Use Medication Directions Dispensed Refills Start Date End Date Stat Farxiga 10 mg tablet TAKE 1 TABLET BY MOUTH EVERY DAY 03/20/2025 active Tresiba FlexTouch U-100 insulin 100 unit/mL (3 mL) subcutaneous pen INJECT 14 UNITS UNDER THE SKIN DAILY. 03/20/2025 active metoprolol succinate (TOPROL-XL) 24 hr tablet 50 mg Take 1 tablet (50 mg total) by mouth daily. 07/06/2024 active spironolactone (ALDACTONE) tablet 50 mg Take 1 tablet (50 mg total) by mouth daily. 07/06/2024 active potassium chloride ER (K-DUR,KLOR-CON) tablet 20 mEq TAKE 2 TABLETS BY MOUTH EVERY DAY 05/15/2024 active atorvastatin (LIPITOR) tablet 20 mg TAKE 1 TABLET BY MOUTH EVERY DAY IN THE EVENING 03/31/2024 active Tresiba FlexTouch 100 UNIT/ML SOPN INJECT 12 UNITS UNDER THE SKIN DAILY. 03/31/2024 active dapagliflozin (Farxiga) 10 MG tablet Take 1 tablet (10 mg total) by mouth daily. 01/11/2024 5 active metoprolol tartrate (LOPRESSOR) 25 MG tablet Take 1 tablet (25 mg total) by mouth 2 (two) times a day. 12/13/2023 4 aborted bumetanide (BUMEX) 2 MG tablet TAKE 2 TABLETS (4 MG TOTAL) BY MOUTH DAILY. 12/02/2023 active potassium chloride ER 20 mEq tablet,extended release(part/cryst) TAKE 2 TABLETS BY MOUTH EVERY DAY 11/05/2023 5 completed nifedipine ER 30 mg tablet,extended release Take 30 mg by mouth daily. 04/14/2022 2 completed metoprolol tartrate 50 mg tablet TAKE 1 TABLET BY MOUTH TWICE A DAY 03/05/2022 3 completed sitagliptin phosphate 100 mg tablet Take 1 tablet (100 mg total) by mouth daily. 09/02/2021 2 completed Insulin Pen Needle (BD Pen Needle Sabina U/F) 32G X 4 MM MISC 1 cartridge by Does not apply route daily. 09/02/2021 active acetaminophen 325 mg tablet Take 2 tablets (650 mg total) by mouth every 6 (six) hours as needed for pain. 02/20/2021 active acetaminophen (TYLENOL) 325 MG tablet Take 2 tablets (650 mg total) by mouth every 6 (six) hours as needed for pain. 02/20/2021 active ketorolac 0.5 % eye drops INSTILL 1 DROP INTO AFFECTED EYE 3 TIMES A DAY STARTING 2 DAYS PRIOR TO SURGERY CONTINUE DIRECTED 5 completed metoprolol tartrate 25 mg tablet TAKE 1 TABLET BY MOUTH TWICE A DAY 5 completed Farxiga 10 mg tablet active Tresiba FlexTouch U-100 insulin 100 unit/mL (3 mL) subcutaneous pen active atorvastatin 20 mg tablet TAKE 1 TABLET BY MOUTH EVERY DAY IN THE EVENING active BD Sabina 2nd Gen Pen Needle 32 gauge x 5/32 USE 1 PEN NEEDLE DAILY. active bumetanide 2 mg tablet TAKE 2 TABLETS BY MOUTH DAILY. active metoprolol succinate ER 50 mg tablet,extended release 24 hr TAKE 1 TABLET BY MOUTH EVERY DAY active spironolactone 50 mg tablet TAKE 1 TABLET BY MOUTH EVERY DAY active Problems Problem Status Onset Date Problem Type Date of Resolution Source Uncontrolled type 2 diabetes mellitus active ProblemAct ENS_PHCCT Infective arthritis of right ankle active ProblemAct ENS_PHCCT Charcot's arthropathy active ProblemAct ENS_PHCCT Acute on chronic combined systolic and diastolic heart failure active ProblemAct ENS_PHCCT Ankle pain active ProblemAct ENS_PHCCT Pain active ProblemAct ENS_PHCCT Chronic diastolic heart failure active ProblemAct ENS_PHCCT Cerebrovascular accident (CVA) due to stenosis of left posterior cerebral artery (CMS/HCC V24, CMS/HCC V28) active ProblemAct CT_THSFRAN Chronic diastolic congestive heart failure ([facility] [place] V24, [facility] [place] V28) active EncounterDiagnosisAct CT_THS MANDEEP Altered mental status, unspecified altered mental status type active ProblemAct CT_THSFRAN Hypokalemia active ProblemAct CT_THSFRAN Primary hypertension active ProblemAct CT_THSFRAN Abnormal EKG active ProblemAct CT_THSFRAN CHERYL (acute kidney injury) ([facility] [place] V24) active ProblemAct CT_THSFRAN Bilateral carotid artery stenosis active ProblemAct CT_THSFRAN History of CVA (cerebrovascular accident) active ProblemAct CT_THSFRAN CVA (cerebral vascular accident) ([facility] [place] V24, [facility] [place] V28) active ProblemAct CT_THSFRAN Pure hypercholesterolemia active ProblemAct CT_THSFRAN Syncope active ProblemAct CT_THSFRAN Abnormal EKG active EncounterDiagnosisAct CTTHNEMG Charcot ankle, right active ProblemAct CTTHNEMG Type 2 diabetes mellitus with hyperglycemia, without long-term current use of insulin active ProblemAct CTTHNEMG Pure hypercholesterolemia active EncounterDiagnosisAct CTTHNEMG Bifascicular block active EncounterDiagnosisAct CTTHNEMG Ankle pain active ProblemAct CTTHNEMG Septic arthritis of right ankle active ProblemAct CTTHNEMG Bilateral leg edema active EncounterDiagnosisAc t CTTHNEMG CHF (congestive heart failure), NYHA class II, chronic, diastolic active ProblemAct CTTHNEMG Primary hypertension active EncounterDiagnosisA ct CTTHNEMG Pain active ProblemAct CTTHNEMG CHF (congestive heart failure), NYHA class I, acute on chronic, combined active ProblemAct CTTHNEMG Encounters Encounter Type Encounter Reason Primary Diagnosis Location Date [facility], 10/2024 [facility], 10/2024 Ambulatory Follow-up Follow-up [facility] Ambulatory [facility] 12/2024 Ambulatory [facility] 12/2024 Ambulatory [facility] 08/19 Ambulatory [facility] [place] 02[facility]18/2023 Ambulatory [facility] 02/16/2023 Care Team Organization Name Specialty Phone Email Start Date End Da te [facility] 09/12/2025 [facility] 09/12/2025 [facility] 06/06/2025 [facility] 03/20/2025 [facility] 08/25/2022 06/05/2024 [facility] 08/22/2022 06/05/2024
--- OUTSIDE RECORDS SUMMARY | 2025-10-04 19:14 | XMS_ITS | Clinical Summary ---
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 30 each 5 Active metoprolol succinate (TOPROL-XL) 100 mg 24 hr tablet Take 1 tablet (100 mg total) by mouth 1 (one) time each day. Do not crush or chew. 30 each 5 Active hydrALAZINE (APRESOLINE) 25 mg tablet Take 1 tablet (25 mg total) by mouth every 8 (eight) hours. 90 each 5 Active aspirin 81 mg EC tabletIndications:c erebral thromboembolism prevention Take 1 tablet (81 mg total) by mouth 1 (one) time each day. 30 each 5 09/12/20 25 pantoprazole (PROTONIX) 40 mg EC tablet Take 1 tablet (40 mg total) by mouth 1 (one) time each day before breakfast. Do not crush, chew, or split. 30 each 5 09/12/20 25 docusate sodium (COLACE) 100 mg capsule Take 1 capsule (100 mg total) by mouth 2 (two) times a day. 60 each 5 09/12/20 25 multivitamin tablet Take 1 tablet by mouth 1 (one) time each day. 30 each 5 09/12/20 25 senna (SENOKOT) 8.6 mg tablet Take 2 tablets (17.2 mg total) by mouth at bedtime. 60 each 5 09/12/20 25 Active Problems Problem Noted Date Diagnosed Date Primary hypertension 09/12/2025 Pure hypercholesterolemia 09/12/2025 Abnormal EKG 09/12/2025 Bilateral carotid artery stenosis 09/12/2025 History of CVA (cerebrovascular accident) 2024 Cerebrovascular accident (CV A) due to stenosis of left posterior cerebral artery 07/22/2025 CVA (cerebral vascular accident) 07/22/2025 Altered mental status, unspe cified altered mental status type 07/20/2025 Syncope 07/19/2025 Hypokalemia 04/03/2025 CHERYL (acute kidney injury) 03/27/2025 Resolved Problems Problem Noted Date Diagnosed Date Resolved Date Hypercalcemia 04/03/2025 04/03/2025 Hypophosphatemia 04/03/2025 04/04/2025 Encounters Date Type Department Care Team Description 09/12/2025 4:30 PM EST Office Visit [facility] [address] [place] [phone] Malachi Mccormack MD Cerebrovascular accident (CVA) due to stenosis of left posterior cerebral artery (CMS/HCC V24, CMS/HCC V28) (Primary Dx); Abnormal EKG; Pure hypercholesterolemia; Primary hypertension; Bilateral carotid artery stenosis; History of CVA (cerebrovascular accident); Chronic diastolic congestive heart failure (CMS/HCC V24, CMS/HCC V28) 08/01/2025 Plan of Care Documentation [facility] [address] [place] [address] 07/25/2025 Plan of Care Documentation [facility] [address] [place] [phone] 07/22/2025 4:47 PM EDT - 08/07/2025 11:45 AM EDT Hospital Encounter [facility] [address] [place] [phone] Rosalee Jones DO Discharge Disposition: [place] [facility] [place]/19/2025 2:25 PM EDT - 07/22/2025 4:37 PM EDT Hospital Encounter [facility] [address] [place] [phone] Mina Dykes MD Santoyo-Pachec o, Omar D, MD Alam, Aroosa, MD Altered mental status, unspecified altered mental status type (Primary Dx); Pericardial effusion; Cerebrovascular accident (CVA), unspecified mechanism ([facility] V24, [facility] V28); Cerebrovascular accident (CVA) due to stenosis of left posterior cerebral artery ([facility] V24, [facility] V28) Discharge Disposition: Rehab Facility from Last 3 Months Surgical History Surgery Date Site/Laterality Comments INCISION AND DRAINAGE FOOT 02/15/2021 Right PROCEDURE:INCISION AND DRAINAGE FOOT;COMMENT:Procedure: I&D RIGHT ANKLE; Surgeon: Nanda Curiel MD; Location: [facility]; Service: Orthopedic Trauma; Laterality: Right; EXTERNAL FIXATION FOOT FRACTURE 02/15/2021 Right PROCEDURE:EXTERNAL FIXATION FOOT FRACTURE;COMMENT:Procedure: APPLICATION EXTERNAL FIXATION RIGHT ANKLE; Surgeon: Nanda Curiel MD; Location: [facility]; Service: Orthopedic Trauma; Laterality: Right; INCISION AND DRAINAGE OF WOUND 02/18/2021 Right PROCEDURE:INCISION AND DRAINAGE OF WOUND;COMMENT:Procedure: I&D ANKLE; Surgeon: Mic Romero MD; Location: [facility]; Service: Orthopedic Trauma; Laterality: Right; EXTERNAL FIXATOR APPLICATION 02/19/2021 Right PROCEDURE:EXTERNAL FIXATOR APPLICATION;COMMENT:Procedure : I&D RIGHT ANKLE WITH FIXATION; Surgeon: Nanda Curiel MD; Location: [facility]; Service: Orthopedic Trauma; Laterality: Right; ANKLE FUSION 02/19/2021 Right PROCEDURE:ANKLE FUSION;COMMENT:Procedure: ARTHRODESIS ANKLE; Surgeon: Nanda Curiel MD; Location: [facility]; Service: Orthopedic Trauma; Laterality: Right; SECTION PROCEDURE: SECTION EXTERNAL FIXATION FOOT FRACTURE 04/09/2021 Right PROCEDURE:EXTERNAL FIXATION FOOT FRACTURE;COMMENT:Procedure: RIGHT REVISION MULTIPLANAR EXTERNAL FIXATION RIGHT ANKLE; Surgeon: Nanda Curiel MD; Location: [facility]; Service: Orthopedic Trauma; Laterality: Right; Medical History Medical History Date Comments GERD (gastroesophageal reflux disease) DX:GERD (gastroesophageal reflux disease) Hypertension DX:Hypertension Anxiety DX:Anxiety Depression DX:Depression Diabetes mellitus, type II ( [facility] V24, [facility] V28) DX:Diabetes mellitus, type I I ([facility]) Hypercalcemia 04/03/2025 Social History Tobacco Use Types Packs/Day Years Used Date Smoking Tobacco: Never Passive Smoke Exposure: Past Smokeless Tobacco: Never Tobacco Cessation:Counseling Given: Not Answered Alcohol Use Standard Drinks/Week Comments Never 0 [...] care for your loved ones. For example, childhood development teacher or elderly care for an older adult? [...] not to disclose 2024 3:03 PM EDT Last Filed Vital Signs Vital Sign Reading Time Taken Comments Blood Pressure 158/72 09/12/2025 4:44 PM EST Pulse 72 09/12/2025 4:44 PM EST Temperature 36.9 C (98.4 F) 08/07/2025 7:43 AM EDT Respiratory Rate 16 08/07/2025 7:43 AM EDT Oxygen Saturation 97% 09/12/2025 4:44 PM EST Inhaled Oxygen Concentration - - Weight 58.5 kg (129 lb) 09/12/2025 4:44 PM EST Height 162.6 cm (5' 4 ) 09/12/2025 4:44 PM EST Body Mass Index 22.14 09/12/2025 4:44 PM EST Plan of Treatment Upcoming Encounters Date Type Department Care Team (Late st Contact Info) Description 12/27/2025 12:00 PM EDT Office Visit [facility] [address] [facility] [address] [place] [address] Malachi Mccormack MD 19 [facility] [address] [place] [address] Health Maintenance Due Date Last Done Comments [...] of76 resultswithin the time period is included. [facility] Glucose POCT 132(H) 70 - 100 mg/dL 08/07/2025 7:15 AM EDT [facility] Blood Capillary blood specimen / Unknown 08/07/2025 7:15 AM EDT 08/07/2025 7:17 AM EDT Rosalee Jones DO LAB POINT OF CARE TEST DOCKED DEVICE UNSOLICITED RESULTS Final Result Performing Organization Address City/[facility]/ZIP Co de Phone Number [facility] [address] [place] [address], [place] [phone] * Magnesium (08/07/2025 6:33 AM EDT) Only the most recent of6 resultswithin the time period is included. [facility] Magnesium 2.0 1.9 - 2.6 mg/dL LAB CHEMISTRY METHOD 08/07/2025 8:12 AM EDT [facility] Blood Venous blood specimen / Unknown Venipuncture / Unknown 08/07/2025 6:33 AM EDT 08/07/2025 7:18 AM EDT Yuliana Brizuela NP LAB BLOOD ORDERABLES Final Result Performing Organization Address City/[facility]/ZIP Co de Phone Number [facility] [address] [place] [address], [place] [phone] * (ABNORMAL) Basic metabolic panel (08/07/2025 6:33 AM EDT) Only the most recent of6 resultswithin the time period is included. [facility] Sodium 140 133 - 145 mmol/L LAB CHEMISTRY METHOD 08/07/2025 8:12 AM EDT [facility] Potassium 5.1 3.5 - 5.5 mmol/L LAB CHEMISTRY METHOD 08/07/2025 8:12 AM EDT [facility] Chloride 109 96 - 110 mmol/L LAB CHEMISTRY METHOD 08/07/2025 8:12 AM T [facility] CO2 28 21 - 32 mmol/L LAB CHEMISTRY METHOD 08/07/2025 8:12 AM [facility] Anion Gap 3 3 - 11 LAB CHEMISTRY METHOD 08/07/2025 8:12 AM [facility] Glucose 125(H) 70 - 100 mg/dL LAB CHEMISTRY METHOD 08/07/2025 8:12 AM [facility] BUN 47(H) 5 - 25 mg/dL LAB CHEMISTRY METHOD 08/07/2025 8:12 AM [facility] Creatinine 2.65(H) 0.50 - 1.10 mg/dL LAB CHEMISTRY METHOD 08/07/2025 8:12 AM [facility] eGFR 19(L) >=60 mL/min/1. 73m2 LAB CHEMISTRY METHOD 08/07/2025 8:12 AM [facility] Comment:Calculation based on the Chronic Kidney Disease Epidemiology Collaboration (CKD-EPI) equation refit without adjustment for race. BUN/Creatinine Ratio 17.7 LAB CHEMISTRY METHOD 08/07/2025 8:12 AM [facility] Calcium 9.5 8.5 - 10.5 mg/dL LAB CHEMISTRY METHOD 08/07/2025 8:12 AM [facility] Blood Venous blood specimen / Unknown Venipuncture / Unknown 08/07/2025 6:33 AM EDT 08/07/2025 7:18 AM EDT us Yuliana Brizuela NP LAB BLOOD ORDERABLES Final Result [facility] [address] [place] [address], * Lavender tube (08/07/2025 6:30 AM EDT) Only the most recent of3 resultswithin the time period is included. [facility] Extra Tube Hold for add-ons. 08/07/2025 9:01 AM EDT [facility] Comment:Auto resulted. Blood Venous blood specimen / Unknown Venipuncture / Unknown 08/07/2025 6:30 AM EDT 08/07/2025 7:23 AM EDT us Rosalee Jones DO LAB BLOOD ORDERABLES Kelsi l Result [facility] [address] [place] [address], * (ABNORMAL) CBC auto differential (08/06/2025 5:14 AM EDT) Only the most recent of6 resultswithin the time period is included. [facility] WBC 4.8 4.8 - 10.8 K/mcL LAB HEMETOLOGY METHOD 08/06/2025 6:27 AM [facility] RBC 3.00(L) 3.80 - 4.80 M/mcL LAB HEMETOLOGY METHOD 08/06/2025 6:27 AM [facility] Hemoglobin 9.2(L) 11.5 - 16.0 g/dL LAB HEMETOLOGY METHOD 08/06/2025 6:27 AM [facility] Hematocrit 29.3(L) 35.0 - 47.0 % LAB HEMETOLOGY METHOD 08/06/2025 6:27 AM [facility] MCV 96.4 79.0 - 98.0 FL LAB HEMETOLOGY METHOD 08/06/2025 6:27 AM [facility] MCH 30.3 27.0 - 32.0 pcg LAB HEMETOLOGY METHOD 08/06/2025 6:27 AM [facility] MCHC 31.4(L) 32.0 - 37.0 g/dL LAB HEMETOLOGY METHOD 08/06/2025 6:27 AM [facility] RDW 13.1 11.0 - 15.0 % LAB HEMETOLOGY METHOD 08/06/2025 6:27 AM [facility] Platelets 167 130 - 400 K/mcL LAB HEMETOLOGY METHOD 08/06/2025 6:27 AM [facility] MPV 12.4(H) 7.0 - 11.0 FL LAB HEMETOLOGY METHOD 08/06/2025 6:27 AM [facility] NRBC 0.0 <1.0 % LAB HEMETOLOGY METHOD 08/06/2025 6:27 AM [facility] NRBC Absolute 0.00 <0.10 K/mcL LAB HEMETOLOGY METHOD 08/06/2025 6:27 AM [facility] Neutrophils Relative 44.9 % LAB HEMETOLOGY METHOD 08/06/2025 6:27 AM [facility] Lymphocytes Relative 39.4 % LAB HEMETOLOGY METHOD 08/06/2025 6:27 AM [facility] Monocytes Relative 8.7 % LAB HEMETOLOGY METHOD 08/06/2025 6:27 AM [facility] Eosinophils Relative 5.6 % LAB HEMETOLOGY METHOD 08/06/2025 6:27 AM [facility] Basophils Relative 1.2 % LAB HEMETOLOGY METHOD 08/06/2025 6:27 AM [facility] Immature Granulocytes Relative 0.2 % LAB HEMETOLOGY METHOD 08/06/2025 6:27 AM [facility] Neutrophils Absolute 2.16 1.50 - 7.00 K/mcL LAB HEMETOLOGY METHOD 08/06/2025 6:27 AM [facility] Lymphocytes Absolute 1.90 1.00 - 5.00 K/mcL LAB HEMETOLOGY METHOD 08/06/2025 6:27 AM EDT [facility] Monocytes Absolute 0.42 0.20 - 1.00 K/mcL LAB HEMETOLOGY METHOD 08/06/2025 6:27 AM EDT [facility] Eosinophils Absolute 0.27 0.00 - 0.50 K/mcL LAB HEMETOLOGY METHOD 08/06/2025 6:27 AM EDT [facility] Basophils Absolute 0.06 0.00 - 0.20 K/mcL LAB HEMETOLOGY METHOD 08/06/2025 6:27 AM EDT [facility] Immature Granulocytes Absolute 0.01 0.00 - 0.03 K/mcL LAB HEMETOLOGY METHOD 08/06/2025 6:27 AM EDT [facility] Blood Venous blood specimen / Unknown Venipuncture / Unknown 08/06/2025 5:14 AM EDT 08/06/2025 5:36 AM EDT us Rosalee Jones DO LAB BLOOD ORDERABLES Kelsi decker Result [facility] [address] [place] [address], [place] [phone] * (ABNORMAL) Complete blood count (07/30/2025 5:56 AM EDT) Only the most recent of3 resultswithin the time period is included. WBC 5.0 4.8 - 10.8 K/mcL LAB HEMETOLOGY METHOD 07/30/2025 6:15 AM EDT [facility] RBC 3.40(L) 3.80 - 4.80 M/mcL LAB HEMETOLOGY METHOD 07/30/2025 6:15 AM EDT [facility] Hemoglobin 9.9(L) 11.5 - 16.0 g/dL LAB HEMETOLOGY METHOD 07/30/2025 6:15 AM EDT [facility] Hematocrit 31.0(L) 35.0 - 47.0 % LAB HEMETOLOGY METHOD 07/30/2025 6:15 AM EDT [facility] MCV 92.5 79.0 - 98.0 FL LAB HEMETOLOGY METHOD 07/30/2025 6:15 AM EDT [facility] MCH 29.6 27.0 - 32.0 pcg LAB HEMETOLOGY METHOD 07/30/2025 6:15 AM EDT [facility] MCHC 31.9(L) 32.0 - 37.0 g/dL LAB HEMETOLOGY METHOD 07/30/2025 6:15 AM EDT [facility] RDW 12.8 11.0 - 15.0 % LAB HEMETOLOGY METHOD 07/30/2025 6:15 AM EDT [facility] Platelets 194 130 - 400 K/mcL LAB HEMETOLOGY METHOD 07/30/2025 6:15 AM EDT [facility] MPV 10.8 7.0 - 11.0 FL LAB HEMETOLOGY METHOD 07/30/2025 6:15 AM EDT [facility] NRBC 0.0 <1.0 % LAB HEMETOLOGY METHOD 07/30/2025 6:15 AM EDT [facility] NRBC Absolute 0.00 <0.10 K/mcL LAB HEMETOLOGY METHOD 07/30/2025 6:15 AM EDT [facility] Blood Venous blood specimen / Unknown Venipuncture / Unknown 07/30/2025 5:56 AM EDT 07/30/2025 6:05 AM EDT Yuliana Brizuela NP LAB BLOOD ORDERABLES Final Result [facility] [address] [place] [address], * (ABNORMAL) Urinalysis with reflex microscopic and culture (07/27/2025 11:03 AM EDT) Only the most recent of2 resultswithin the time period is included. [facility] Urine 1.015 1.003 - 1.030 LAB URINALYSIS - AUTOMATED METHOD 07/27/2025 11:37 AM [facility] pH, Urine 5.5 5.0 - 8.0 pH LAB URINALYSIS - AUTOMATED METHOD 07/27/2025 11:37 AM [facility] Leukocytes, Urine Negative Negative LAB URINALYSIS - AUTOMATED METHOD 07/27/2025 11:37 AM [facility] Nitrite, Urine Negative Negative LAB URINALYSIS - AUTOMATED METHOD 07/27/2025 11:37 AM [facility] Protein, Urine 100(A) <=Trace mg/dL LAB URINALYSIS - AUTOMATED METHOD 07/27/2025 11:37 AM [facility] Glucose, Urine Negative Negative mg/dL LAB URINALYSIS - AUTOMATED METHOD 07/27/2025 11:37 AM [facility] Ketones, Urine Negative Negative mg/dL LAB URINALYSIS - AUTOMATED METHOD 07/27/2025 11:37 AM [facility] Urobilinogen, Urine 0.2 0.2 - 1.0 mg/dL LAB URINALYSIS - AUTOMATED METHOD 07/27/2025 11:37 AM [facility] Bilirubin, Urine Negative Negative LAB URINALYSIS - AUTOMATED METHOD 07/27/2025 11:37 AM [facility] Blood, Urine Negative Negative LAB URINALYSIS - AUTOMATED METHOD 07/27/2025 11:37 AM [facility] RBC, Urine 7.7(H) 0 - 4 /HPF LAB URINALYSIS - AUTOMATED METHOD 07/27/2025 11:37 AM [facility] WBC, Urine 2.6 0 - 4 /HPF LAB URINALYSIS - AUTOMATED METHOD 07/27/2025 11:37 AM EDT [facility] Squamous Epithelial, Urine 43 0 - 60 /LPF LAB URINALYSIS - AUTOMATED METHOD 07/27/2025 11:37 AM EDT [facility] Bacteria, Urine Negative Negative /HPF LAB URINALYSIS - AUTOMATED METHOD 07/27/2025 11:37 AM EDT [facility] Hyaline Casts, Urine 1.2 0 - 3 /LPF LAB URINALYSIS - AUTOMATED METHOD 07/27/2025 11:37 AM EDT [facility] Urine Urine specimen obtained by clean catch procedure / Unknown Non-blood Collection / Unknown 07/27/2025 11:03 AM EDT 07/27/2025 11:30 AM EDT Thuy FONSECA LAB URINE ORDERABLES Final R esult Performing Organization Address City/[facility]/ZIP Co de Phone Number [facility] [address] [place] [address], [place] [phone] * Laura urine culture tube (07/27/2025 11:03 AM EDT) Only the most recent of2 resultswithin the time period is included. Extra Tube Hold for add-ons. 07/27/2025 1:01 PM EDT [facility] Comment:Auto resulted. Urine Urine specimen obtained by clean catch procedure / Unknown Non-blood Collection / Unknown 07/27/2025 11:03 AM EDT 07/27/2025 11:30 AM EDT Thuy FONSECA LAB URINE ORDERABLES Final R esult Performing Organization Address City/[facility]/ZIP Co de Phone Number [facility] [address] [place] [address], [place] [phone] * (ABNORMAL) Comprehensive metabolic panel (07/27/2025 5:24 AM EDT) Only the most recent of5 resultswithin the time period is included. Sodium 143 133 - 145 mmol/L LAB CHEMISTRY METHOD 07/27/2025 6:06 AM [facility] Potassium 3.8 3.5 - 5.5 mmol/L LAB CHEMISTRY METHOD 07/27/2025 6:06 AM [facility] Chloride 114(H) 96 - 110 mmol/L LAB CHEMISTRY METHOD 07/27/2025 6:06 AM [facility] CO2 23 21 - 32 mmol/L LAB CHEMISTRY METHOD 07/27/2025 6:06 AM [facility] Anion Gap 6 3 - 11 LAB CHEMISTRY METHOD 07/27/2025 6:06 AM [facility] Glucose 92 70 - 100 mg/dL LAB CHEMISTRY METHOD 07/27/2025 6:06 AM [facility] BUN 37(H) 5 - 25 mg/dL LAB CHEMISTRY METHOD 07/27/2025 6:06 AM [facility] Creatinine 2.21(H) 0.50 - 1.10 mg/dL LAB CHEMISTRY METHOD 07/27/2025 6:06 AM [facility] eGFR 23(L) >=60 mL/min/1. 73m2 LAB CHEMISTRY METHOD 07/27/2025 6:06 AM [facility] Comment:Calculation based on the Chronic Kidney Disease Epidemiology Collaboration (CKD-EPI) equation refit without adjustment for race. BUN/Creatinine Ratio 16.7 LAB CHEMISTRY METHOD 07/27/2025 6:06 AM [facility] Calcium 9.0 8.5 - 10.5 mg/dL LAB CHEMISTRY METHOD 07/27/2025 6:06 AM [facility] AST (SGOT) 20 10 - 42 unit/L LAB CHEMISTRY METHOD 07/27/2025 6:06 AM [facility] ALT (SGPT) 26 10 - 60 unit/L LAB CHEMISTRY METHOD 07/27/2025 6:06 AM EDT [facility] Alkaline Phosphatase 84 42 - 121 unit/L LAB CHEMISTRY METHOD 07/27/2025 6:06 AM EDT [facility] Total Protein 5.9(L) 6.0 - 8.0 g/dL LAB CHEMISTRY METHOD 07/27/2025 6:06 AM EDT [facility] Albumin 3.2 3.2 - 5.0 g/dL LAB CHEMISTRY METHOD 07/27/2025 6:06 AM EDT [facility] Total Bilirubin 0.4 0.0 - 1.4 mg/dL LAB CHEMISTRY METHOD 07/27/2025 6:06 AM EDT [facility] Blood Venous blood specimen / Unknown Venipuncture / Unknown 07/27/2025 5:24 AM EDT 07/27/2025 5:39 AM EDT us Thuy FONSECA LAB BLOOD ORDERABLES Final R esult [facility] [address] [place] [address], [place] [phone] * XR Abdomen 1 View (07/25/2025 2:43 PM EDT) Anatomical Region Laterality Modality Body Radiographic Lisa ging 07/26/2025 7:51 AM EDT Impressions 07/26/2025 7:56 AM EDT Nonobstructive bowel gas pattern. There is evidence of mild constipation. Code 23064 -------- FINAL REPORT -------- Dictated By: Mic Gomez Dictated Date: 07/26/2025 07:51 ET Assigned Physician: Mic Gomez Reviewed and Electronically Signed By: Mic Gomez Signed Date: 07/26/2025 07:56 ET Workstation ID: [id number] Transcribed By: Self Edit Transcribed Date: 07/26/2025 [...] CT scan of the abdomen and pelvis [id number]/[id number]. IMPRESSION: Nonobstructive bowel gas pattern. There is evidence of mildconstipation. Code 81809 -------- FINAL REPORT -------- Dictated By: Mic Gomez Dictated Date: 07/26/2025 07:51 ET Assigned Physician: Mic Gomez Reviewed and Electronically Signed By: Mic Gomez Signed Date: 07/26/2025 07:56 ET Workstation ID: [id number] Transcribed By: Self Edit Transcribed Date: 07/26/2025 [...] -------- FINAL REPORT -------- Dictated By: Odessa uFnk Dictated Date: 07/22/2025 09:34 ET Assigned Physician: Odessa Funk Reviewed and Electronically Signed By: Odessa Funk Signed Date: 07/22/2025 09:39 ET Workstation ID: [id number] Transcribed By: Self Edit Transcribed Date: 07/22/2025 [...] Signed Date: 07/22/2025 09:39 ET Workstation ID: [id number] Transcribed By: Self Edit Transcribed Date: 07/22/2025 09:34 ET us Matilda FONSECA IMG CT PROCEDURES Final Re sult * Prepare RBC: 1 Units, Leukoreduced (07/22/2025 8:43 AM EDT) Product Code [id number] 07/22/2025 11:40 AM EDT [facility] Unit Number [id number] 07/22/20 11:40 AM EDT [facility] Crossmatch Compatible 07/22/2025 8:59 AM EDT [facility] Dispense Status Transfused 07/22/2025 11:40 AM EDT [facility] Unit ABO Rh ONEG 07/22/2025 11:40 AM EDT [facility] Unit Expiration Date Time [id number] 07/22/2025 11:40 AM EDT [facility] Unit Blood Type 9500 07/22/2025 11:40 AM EDT [facility] Blood Venous blood specimen / Unknown 07/22/2025 8:43 AM EDT 07/22/2025 6:30 AM EDT us Matilda FONSECA BLOOD BANK PRODUCT ORDERAB LES Final Result [facility] [address] [place] [address], * Type and screen (07/22/2025 5:59 AM EDT) ABO Group O 07/22/2025 7:36 AM EDT [facility] Rh Type Negative 07/22/2025 7:36 AM EDT [facility] Antibody Screen Negative 07/22/2025 7:36 AM EDT [facility] Blood Venous blood specimen / Unknown Venipuncture / Unknown 07/22/2025 5:59 AM EDT 07/22/2025 6:30 AM EDT Matilda FONSECA LAB BLOOD BANK TEST ORDERA BLES Final Result [facility] [address] [place] [address], * (ABNORMAL) Hemoglobin and hematocrit (07/21/2025 10:32 AM EDT) Only the most recent of3 resultswithin the time period is included. Hemoglobin 8.0(L) 11.5 - 16.0 g/dL LAB HEMETOLOGY METHOD 07/21/2025 10:58 AM EDT [facility] Hematocrit 25.8(L) 35.0 - 47.0 % LAB HEMETOLOGY METHOD 07/21/2025 10:58 AM EDT [facility] Blood Venous blood specimen / Unknown Venipuncture / Unknown 07/21/2025 10:32 AM EDT 07/21/2025 10:53 AM EDT Adeel Farooq MD LAB BLOOD ORDERABLES Final Resul t [facility] [address] [place] [address], * Culture urine (07/20/2025 5:31 PM EDT) Culture, Urine <10,000 cfu/mL Mixed bacterial jeanie 07/21/2025 12:47 PM EDT [facility] Urine Urine specimen obtained by clean catch procedure / Unknown Non-blood Collection / Unknown 07/20/2025 5:31 PM EDT 07/20/2025 7:02 PM EDT us Matilda FONSECA LAB MICROBIOLOGY - GENERAL ORDERABLES Final Result [facility] [address] [place] [address], * MR Angio Head wo Contrast (07/20/2025 [...] INDICATION: STROKE MRA HEAD, 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 3D jijm-nb-yerklw reconstructions : Comparison: None Right Carotid Siphon: [...] MD on 07/20/2025 19:01:56 us Matilda [facility]ty MRI PROCEDURES Edited Result - Final * (ABNORMAL) TRANSTHORACIC ECHOCARDIOGRAM (TTE) COMPLETE W/ CONTRAST (07/20/2025 3:55 PM EDT) Left [facility] [place] 5.6 cm CV PACS Left [facility] [place] 5.8 cm CV PACS LA Area Sys [...] Volume 86 mL CV PACS MV Deceleration Cloud 4.4 m/s2 CV PACS E Wave Deceleration [...] Signed Date: 07/20/2025 13:39 ET Workstation ID: [id number] Transcribed By: Self Edit Transcribed Date: 07/20/2025 [...] Signed Date: 07/20/2025 13:39 ET Workstation ID: [id number] Transcribed By: Self Edit Transcribed Date: 07/20/2025 [...] Signed Date: 07/22/2025 11:14 ET Workstation ID: [id number] Transcribed By: Self Edit Transcribed Date: 07/22/2025 [...] Signed Date: 07/22/2025 11:14 ET Workstation ID: [id number] Transcribed By: Self Edit Transcribed Date: 07/22/2025 11:11 ET Matilda FONSECA CV VASCULAR PROCEDURES Fin al Result * ROUTINE EEG (07/20/2025 8:38 AM EDT) Obinna Hubbard MD - 07/20/2025 9:11 AM EDT Obinna Galeana MD 07/20/2025 9:23 AM Routine EEG Date/Time: 07/20/2025 9:11 AM Performed by: Obinna Galeana MD Authorized by: RAYMUNDO Cunha us Esthela FONSECA NEUROLOGY ORDERABLES Fi nal Result * Lipid panel with reflex to direct LDL (07/20/2025 5:50 AM EDT) Cholesterol 132 0 - 200 mg/dL LAB CHEMISTRY METHOD 07/20/2025 11:56 AM [facility] Triglycerides 74 0 - 150 mg/dL LAB CHEMISTRY METHOD 07/20/2025 11:56 AM [facility] HDL 59 >=40 mg/dL LAB CHEMISTRY METHOD 07/20/2025 11:56 AM [facility] LDL Calculated 58 0 - 100 mg/dL LAB CHEMISTRY METHOD 07/20/2025 11:56 AM [facility] Comment:Estimated LDL Calcul ated using equation: Total cholesterol - HDL cholesterol - (Triglycerides/5) VLDL Cholesterol Nagi 14.8 mg/dL LAB CHEMISTRY METHOD 07/20/2025 11:56 AM [facility] Non HDL Chol. (LDL+VLDL) 73 <145 mg/dL LAB CHEMISTRY METHOD 07/20/2025 11:56 AM [facility] Chol/HDL Ratio 2.2 0.0 - 4.4 LAB CHEMISTRY METHOD 07/20/2025 11:56 AM [facility] Blood Venous blood specimen / Unknown Venipuncture / Unknown 07/20/2025 5:50 AM EDT 07/20/2025 6:19 AM EDT Matilda FONSECA LAB BLOOD ORDERABLES Final Result [facility] [address] [place] [address], * (ABNORMAL) Urinalysis with reflex microscopic (07/19/2025 8:53 PM EDT) Pathologist [facility] Specific [facility] Urine 1.018 1.003 - 1.030 LAB URINALYSIS - AUTOMATED METHOD 07/19/2025 9:22 PM [facility] pH, Urine 7.5 5.0 - 8.0 pH LAB URINALYSIS - AUTOMATED METHOD 07/19/2025 9:22 PM [facility] Leukocytes, Urine Moderate(A) Negative LAB URINALYSIS - AUTOMATED METHOD 07/19/2025 9:22 PM [facility] Nitrite, Urine Negative Negative LAB URINALYSIS - AUTOMATED METHOD 07/19/2025 9:22 PM [facility] Protein, Urine 300(A) <=Trace mg/dL LAB URINALYSIS - AUTOMATED METHOD 07/19/2025 9:22 PM [facility] Glucose, Urine Negative Negative mg/dL LAB URINALYSIS - AUTOMATED METHOD 07/19/2025 9:22 PM [facility] Ketones, Urine Negative Negative mg/dL LAB URINALYSIS - AUTOMATED METHOD 07/19/2025 9:22 PM [facility] Urobilinogen , Urine 0.2 0.2 - 1.0 mg/dL LAB URINALYSIS - AUTOMATED METHOD 07/19/2025 9:22 PM [facility] Bilirubin, Urine Negative Negative LAB URINALYSIS - AUTOMATED METHOD 07/19/2025 9:22 PM [facility] Blood, Urine Small(A) Negative LAB URINALYSIS - AUTOMATED METHOD 07/19/2025 9:22 PM [facility] RBC, Urine 14.0(H) 0 - 4 /HPF LAB URINALYSIS - AUTOMATED METHOD 07/19/2025 9:22 PM [facility] WBC, Urine 53.2(H) 0 - 4 /HPF LAB URINALYSIS - AUTOMATED METHOD 07/19/2025 9:22 PM [facility] Squamous Epithelial, Urine 88(H) 0 - 60 /LPF LAB URINALYSIS - AUTOMATED METHOD 07/19/2025 9:22 PM [facility] Bacteria, Urine Many(A) Negative /HPF LAB URINALYSIS - AUTOMATED METHOD 07/19/2025 9:22 PM EDT [facility] Hyaline Casts, Urine >182(H) 0 - 3 /LPF LAB URINALYSIS - AUTOMATED METHOD 07/19/2025 9:22 PM EDT [facility] Urine Urine specimen obtained by clean catch procedure / Unknown Non-blood Collection / Unknown 07/19/2025 8:53 PM EDT 07/19/2025 8:57 PM EDT Mina Dykes MD LAB URINE ORDERABLES Final Resu lt Performing Organization Address [facility]/ZIP Co de Phone Number [facility] [address] [place] [address], [place] [phone] * (ABNORMAL) Troponin I high sensitivity (07/19/2025 8:33 PM EDT) [facility] High Sensitivity Troponin I 104(H) <=54 ng/L LAB CHEMISTRY METHOD 07/19/2025 9:22 PM EDT [facility] Blood Venous blood specimen / Unknown Venipuncture / Unknown 07/19/2025 8:33 PM EDT 07/19/2025 8:40 PM EDT Narrative [facility] - 07/19/2025 9:22 PM EDT High levels of biotin in samples may falsely decrease hsTroponin values. Use caution when interpreting hsTroponin results in patients taking biotin who exhibit renal impairment (eGFR <60) or in patients taking more than 20 mg/day of biotin. us Esthela FONSECA LAB BLOOD ORDERABLES Fi nal Result Performing Organization Address [facility]/ZIP Co de Phone Number [facility] [address] [place] [address], [place] [phone] * Light blue tube (07/19/2025 8:33 PM EDT) [facility] Extra Tube Hold for add-ons. 07/19/2025 10:02 PM EDT [facility] Comment:Auto resulted. Blood Venous blood specimen / Unknown 07/19/2025 8:33 PM EDT 07/19/2025 8:41 PM EDT Ajit Webster MD LAB BLOOD ORDERABLES F inal Result Performing Organization Address City/[facility]/ZIP Co de Phone Number [facility] [address] [place] [address], [place] [phone] * Hemoglobin A1c (07/19/2025 8:33 PM EDT) Hemoglobin A1C 5.7 <6.5 % LAB CHEMISTRY METHOD 07/20/2025 12:35 PM EDT [facility] Mean Bld Glu Estim. 117 mg/dL LAB CHEMISTRY METHOD 07/20/2025 12:35 PM EDT [facility] Blood Venous blood specimen / Unknown 07/19/2025 8:33 PM EDT 07/19/2025 8:41 PM EDT Esthela FONSECA LAB BLOOD ORDERABLES Fi nal Result Performing Organization Address [facility] Co de Phone Number [facility] [address] [place] [address], [place] [phone] * CT Abdomen Pelvis w Contrast (07/19/2025 [...] MD on 07/19/2025 18:33:43 Mina Dykes MD IMG CT PROCEDURES Final Result * Thyroid stimulating hormone with reflex to free t4 and free t3 (TSH Reflex) (07/19/2025 4:56 PM EDT) TSH 1.58 0.40 - 4.00 mcIU/mL LAB CHEMISTRY METHOD 07/19/2025 6:07 PM EDT [facility] Blood Venous blood specimen / Unknown Venipuncture / Unknown 07/19/2025 4:56 PM EDT 07/19/2025 5:03 PM EDT Mina Dykes MD LAB BLOOD ORDERABLES Final Resu lt [facility] [address] [place] [address], [place] [phone] * Calcium, ionized (07/19/2025 2:54 PM EDT) [facility] Calcium Ionized 4.90 4.50 - 5.30 mg/dL 07/19/2025 3:55 PM EDT [facility] Blood Venous blood specimen / Unknown Venipuncture / Unknown 07/19/2025 2:54 PM EDT 07/19/2025 3:40 PM EDT us Mina Dykes MD LAB BLOOD ORDERABLES Final Resu lt Performing Organization Address [facility] Co de Phone Number [facility] [address] [place] [address], [place] [phone] * 12-Lead ECG (07/19/2025 2:52 PM EDT) [facility] Ventricular Rate ECG 95 BPM GEMUSE Atrial Rate 95 BPM GEMUSE P-R Interval 174 ms GEMUSE QRS Duration 128 ms GEMUSE Q-T Interval 382 ms GEMUSE QTc 480 ms GEMUSE R [place] -50 degrees GEMUSE T [place] 54 degrees GEMUSE ECG Interpretation Normal sinus [...] Mina Dykes MD ECG ORDERABLES Final Result Performing Organization Address [facility]/ZIP Co de Phone Number GEMUSE * Occult blood stool, guaiac (03/29/2025 11:04 PM EDT) Occult Blood, Stool #1 Negative Negative 03/29/2025 11:52 PM EDT [facility] Stool Rectum structure / Unknown Non-blood Collection / Unknown 03/29/2025 11:04 PM EDT 03/29/2025 11:44 PM EDT us Timothy So MD LAB BODY FLUIDS AND STO OLS ORDERABLES Final Result [facility] [address] [place] [address], [place] [phone] from Last 3 Months or Most Recently Relevant to Health Maintenance Insurance MEDICARE [facility] Advance Directives Documents on File Type Date Recorded 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
--- OUTSIDE RECORDS SUMMARY | 2025-10-04 19:14 | XMS_ITS | Clinical Summary ---
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 Device Identifier Shelf Expiration Date Model / Serial / Lot Pin [place] Edna Ii 180mm 50mm 5mm Threaded Stainless Steel - [id number] - [id number] Implanted:Qty: 2 on 02/15/2021 by Nanda Curiel MD at [facility] Explanted:Qty: 2 on 04/09/2021 at [facility] [employer] [id number] / / Description:Not present at t radha of surgery Pin Fixation [place] Transfix L300 Mm L40 Mm Od5\6 Mm Self Dril - [id number] - [id number] Implanted:Qty: 1 on 02/15/2021 by Nanda Cureil MD at [facility] Explanted:Qty: 1 on 04/09/2021 at [facility] [employer] [id number] / / Description:Not present at s tart of surgery K Wire Implanted:Qty: 7 on 02/19/2021 by Nanda Curiel MD at [facility] Explanted:Qty: 7 on 04/09/2021 by Nanda Curiel MD at [facility] Right: [employer] ORTHO[employer] [id number] / / [employer] Wire Implanted:Qty: 3 on 02/19/2021 by Nanda Curiel MD at [facility] Explanted:Qty: 3 on 04/09/2021 by Nanda Curiel MD at [facility] Right: [employer] ORTHOFIX [id number] / / Advance Directives For more information, please contact: [phone] Documents on File Type Date Recorded 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
--- OUTSIDE RECORDS SUMMARY | 2025-10-05 19:00 | XMS_ITS | Clinical Summary ---
Author Organization Unknown Care Team Providers Care Engineering Technician Parking Name Role Phone ML SHEETS, LUPE Unavailable Unavailable YOGI CANADA, ROLO Unavailable Unavailab remedios GONZALEZ LPN, TOYA Unavailable Unavailable LUNA PT, JESUS Unavailable Unavail able [employer] PARTNER INTEGRATION PLANNER, CHI Unavailable Unavailable READING OT, KYLE Unavailable Unavailable TROY ODOM ST, LISA Unavailable Unavailable Payers Payer Name Policy Type Policy Number Effective Date Expira tion Date MEDICARE.NGS.PDGM [id number] Problems Condition Name Condition Details Condition Category [...] tablet,tere yed release 2024-10 00:00: 00 Yes [id number] STROKE 1 tablet DAILY 1 tablet DAILY (route: oral) Med Classific ation: Hematolog ical Agents atorvastati n 20 mg tablet 2024-10 00:00: 00 Yes [id number] STROKE 1 tablet BEDTIME 1 tablet BEDTIME (route: oral) Med Classific ation: Cardiovas cular Therapy Agents docusate sodium 100 mg capsule 2024-10 00:00: 00 09-11 23:59 :00 No [id number] CONSTIPATIO N 1 capsule BEDTIME 1 capsule BEDTIME (route: oral) Med Classific ation: Gastroint estinal Therapy Agents hydralazine 25 mg tablet 2024-10 00:00: 00 Yes [id number] HIGH BLOOD PRESSURE 1 tablet 3 TIMES DAILY 1 tablet 3 TIMES DAILY (route: oral) Med Classific ation: Cardiovas cular Therapy Agents metoprolol succinate ER 100 mg tablet,exte nded release 24 hr 2024-10 00:00: 00 Yes [id number] IRREGULAR HEART BEAT 1 tablet DAILY 1 tablet DAILY (route: oral) Med Classific ation: Cardiovas cular Therapy Agents Multivitami n 50 Plus tablet 2024-10 00:00: 00 Yes [id number] SUPPLEMENT 1 tablet DAILY 1 tablet DAILY (route: oral) Med Classific ation: Electroly te Balance-N utritiona l Products Senna Lax 8.6 mg tablet 2024-10 00:00: 00 Yes [id number] CONSTIPATIO N 2 tablet BEDTIME 2 tablet BEDTIME (route: oral) Med Classific ation: Gastroint estinal Therapy Agents pantoprazol e 40 mg tablet,tere yed release 2024-10 00:00: 00 Yes [id number] GERD 1 tablet DAILY 1 tablet DAILY (route: oral) Med Classific ation: Gastroint estinal Therapy Agents docusate sodium 100 mg capsule 2024-10 1- 00:00: 00 Yes [id number] CONSTIPATIO N 1 capsule 2 TIMES DAILY 1 capsule 2 TIMES DAILY (route: oral) Med Classific ation: Gastroint estinal Therapy Agents Ear Wax Drops 6.5 % 2024-10 00:00: 00 Yes [id number] EAR WAX BUILDUP 2 drops 2 TIMES DAILY 2 drops 2 TIMES DAILY (route: otic (ear)) Med Classific ation: Otic (Ear) iron 325 mg (65 mg iron) tablet 2024-10 00:00: 00 Yes [id number] SUPPLEMENT 1 tablet DAILY 1 tablet DAILY (route: oral) Med Classific ation: Electroly te Balance-N utritiona l Products Tradjenta 5 mg tablet 2024-10 00:00: 00 Yes [id number] DIABETES 1 tablet DAILY 1 tablet DAILY (route: oral) Med Classific ation: Endocrine Vitamin C 500 mg tablet 2024-10 00:00: 00 Yes [id number] SUPPLEMENT 1 tablet DAILY 1 tablet DAILY (route: oral) Med Classific ation: Electroly te Balance-N utritiona l Products Vitamin D2 1,250 mcg (50,000 unit) capsule 2024-10 00:00: 00 Yes [id number] SUPPLEMENT 1 capsule DAILY 1 capsule DAILY (route: oral) Med Classific ation: Electroly te Balance-N utritiona l Products Vital Signs Vital Name Observation Time Observation Value Commen ts Temperature 2025-10-04 15:52:00.000 97.2 [degF] Temperature 2025-10-03 10:12:00.000 96.7 [degF] Temperature 2025-10-02 12:10:00.000 97.5 [degF] Temperature 2025-09-27 08:56:00.000 97.1 [degF] Temperature 2025-09-25 11:26:00.000 98.3 [degF] Temperature 2025-09-24 13:24:00.000 97.5 [degF] Temperature 2025-09-20 09:00:00.000 97.1 [degF] Temperature 2025-09-19 14:33:00.000 96.5 [degF] Temperature 2025-09-18 10:08:00.000 97.7 [degF] Temperature 2025-09-12 10:19:00.000 97.8 [degF] Temperature 2025-09-11 09:46:00.000 97.7 [degF] Temperature 2025-09-10 13:24:00.000 97.1 [degF] Temperature 2025-09-06 09:11:00.000 96.9 [degF] Temperature 2025-09-05 10:26:00.000 97.9 [degF] Temperature 2025-09-04 14:10:00.000 97.8 [degF] Temperature 2025-09-04 09:25:00.000 97.7 [degF] Temperature 2025-08-30 08:54:00.000 97.1 [degF] Temperature 2025-08-29 [...] kg/m2 Height 2025-08-08 13:27:00.000 64 [in_us] Pulse 2025-10-04 15:52:00.000 86 /min Pulse 2025-10-03 10:12:00.000 78 /min Pulse 2025-10-02 12:10:00.000 69 /min Pulse 2025-09-27 08:56:00.000 65 /min Pulse 2025-09-26 10:09:00.000 62 /min Pulse 2025-09-25 11:26:00.000 67 /min Pulse 2025-09-24 13:24:00.000 61 /min Pulse 2025-09-20 09:00:00.000 60 /min Pulse 2025-09-19 14:33:00.000 68 /min Pulse 2025-09-19 09:56:00.000 62 /min Pulse 2025-09-18 10:08:00.000 69 /min Pulse 2025-09-12 10:19:00.000 66 /min Pulse 2025-09-11 09:46:00.000 58 /min Pulse 2025-09-10 13:24:00.000 78 /min Pulse 2025-09-06 09:11:00.000 60 /min Pulse 2025-09-05 10:26:00.000 75 /min Pulse 2025-09-04 14:10:00.000 60 /min Pulse 2025-09-04 09:25:00.000 60 /min Pulse 2025-08-30 08:54:00.000 60 /min Pulse 2025-08-29 [...] 2025-08-08 13:27:00.000 71 /min O2 Saturation (%) 2025-10-04 15:52:00.000 99 % O2 Saturation (%) 2025-10-03 10:12:00.000 99 % O2 Saturation (%) 2025-10-02 12:10:00.000 99 % O2 Saturation (%) 2025-09-27 08:56:00.000 100 % O2 Saturation (%) 2025-09-26 10:09:00.000 100 % O2 Saturation (%) 2025-09-25 11:26:00.000 97 % O2 Saturation (%) 2025-09-24 13:24:00.000 99 % O2 Saturation (%) 2025-09-20 09:01:00.000 100 % O2 Saturation (%) 2025-09-19 14:33:00.000 96 % O2 Saturation (%) 2025-09-19 09:56:00.000 100 % O2 Saturation (%) 2025-09-18 10:08:00.000 99 % O2 Saturation (%) 2025-09-12 10:19:00.000 99 % O2 Saturation (%) 2025-09-11 09:46:00.000 99 % O2 Saturation (%) 2025-09-10 13:24:00.000 98 % O2 Saturation (%) 2025-09-06 09:11:00.000 99 % O2 Saturation (%) 2025-09-05 10:26:00.000 99 % O2 Saturation (%) 2025-09-04 14:10:00.000 100 % O2 Saturation (%) 2025-09-04 09:25:00.000 100 % O2 Saturation (%) 2025-08-30 08:54:00.000 98 % [...] Saturation (%) 2025-08-08 13:27:00.000 98 % Respirations 2025-10-04 15:52:00.000 18 /min Respirations 2025-10-03 10:12:00.000 18 /min Respirations 2025-10-02 12:10:00.000 18 /min Respirations 2025-09-27 08:56:00.000 16 /min Respirations 2025-09-26 10:09:00.000 18 /min Respirations 2025-09-25 11:26:00.000 18 /min Respirations 2025-09-24 13:24:00.000 18 /min Respirations 2025-09-20 09:00:00.000 16 /min Respirations 2025-09-19 14:33:00.000 18 /min Respirations 2025-09-19 09:56:00.000 18 /min Respirations 2025-09-18 10:08:00.000 18 /min Respirations 2025-09-12 10:19:00.000 18 /min Respirations 2025-09-11 09:46:00.000 18 /min Respirations 2025-09-10 13:24:00.000 18 /min Respirations 2025-09-06 09:11:00.000 16 /min Respirations 2025-09-05 10:26:00.000 18 /min Respirations 2025-09-04 14:10:00.000 18 /min Respirations 2025-09-04 09:25:00.000 18 /min Respirations 2025-08-30 08:54:00.000 16 /min Respirations 2025-08-29 [...] Respirations 2025-08-08 13:27:00.000 18 /min Weight (lbs) 2025-10-02 12:10:00.000 131.8 [lb_av] Weight (lbs) 2025-09-27 08:58:00.000 131.4 [lb_av] Weight (lbs) 2025-09-25 11:26:00.000 131.4 [lb_av] Weight (lbs) 2025-09-20 09:01:00.000 129 [lb_av] Weight (lbs) 2025-09-19 14:39:00.000 129 [lb_av] Weight (lbs) 2025-09-18 10:08:00.000 127 [lb_av] Weight (lbs) 2025-09-11 09:46:00.000 130 [lb_av] Weight (lbs) 2025-09-06 09:13:00.000 129.8 [lb_av] Weight (lbs) 2025-09-04 14:11:00.000 132.8 [lb_av] Weight (lbs) 2025-09-04 09:25:00.000 132.8 [lb_av] Weight (lbs) 2025-08-30 08:58:00.000 130.2 [lb_av] Weight (lbs) 2025-08-28 09:07:00.000 130.2 [lb_av] Weight (lbs) 2025-08-21 10:26:00.000 131 [lb_av] Weight (lbs) 2025-08-20 13:05:00.000 131.2 [lb_av] Weight (lbs) 2025-08-16 10:43:00.000 132 [lb_av] Weight (lbs) 2025-08-08 13:27:00.000 130.6 [lb_av] Systolic Blood Pressure 2025-10-04 15:52:00.000 126 mm [Hg] Systolic Blood Pressure 2025-10-03 10:12:00.000 130 mm [Hg] Systolic Blood Pressure 2025-10-02 12:10:00.000 118 mm [Hg] Systolic Blood Pressure 2025-09-27 08:56:00.000 120 mm [Hg] Systolic Blood Pressure 2025-09-26 10:09:00.000 98 mm[ Hg] Systolic Blood Pressure 2025-09-25 11:26:00.000 120 mm [Hg] Systolic Blood Pressure 2025-09-24 13:24:00.000 106 mm [Hg] Systolic Blood Pressure 2025-09-20 09:00:00.000 110 mm [Hg] Systolic Blood Pressure 2025-09-19 14:33:00.000 108 mm [Hg] Systolic Blood Pressure 2025-09-19 09:56:00.000 120 mm [Hg] Systolic Blood Pressure 2025-09-18 10:08:00.000 110 mm [Hg] Systolic Blood Pressure 2025-09-12 11:00:00.000 110 mm [Hg] Systolic Blood Pressure 2025-09-12 10:19:00.000 90 mm[ Hg] Systolic Blood Pressure 2025-09-11 09:46:00.000 114 mm [Hg] Systolic Blood Pressure 2025-09-10 13:24:00.000 120 mm [Hg] Systolic Blood Pressure 2025-09-06 09:11:00.000 118 mm [Hg] Systolic Blood Pressure 2025-09-05 10:26:00.000 130 mm [Hg] Systolic Blood Pressure 2025-09-04 14:10:00.000 120 mm [Hg] Systolic Blood Pressure 2025-09-04 09:25:00.000 120 mm [Hg] Systolic Blood Pressure 2025-08-30 08:54:00.000 140 mm [...] 13:27:00.000 110 mm [Hg] Diastolic Blood Pressure 2025-10-04 15:52:00.000 60 mm [Hg] Diastolic Blood Pressure 2025-10-03 10:12:00.000 60 mm [Hg] Diastolic Blood Pressure 2025-10-02 12:10:00.000 58 mm [Hg] Diastolic Blood Pressure 2025-09-27 08:56:00.000 60 mm [Hg] Diastolic Blood Pressure 2025-09-26 10:09:00.000 62 mm [Hg] Diastolic Blood Pressure 2025-09-25 11:26:00.000 62 mm [Hg] Diastolic Blood Pressure 2025-09-24 13:24:00.000 62 mm [Hg] Diastolic Blood Pressure 2025-09-20 09:00:00.000 60 mm [Hg] Diastolic Blood Pressure 2025-09-19 14:33:00.000 60 mm [Hg] Diastolic Blood Pressure 2025-09-19 09:56:00.000 60 mm [Hg] Diastolic Blood Pressure 2025-09-18 10:08:00.000 60 mm [Hg] Diastolic Blood Pressure 2025-09-12 11:00:00.000 60 mm [Hg] Diastolic Blood Pressure 2025-09-12 10:19:00.000 50 mm [Hg] Diastolic Blood Pressure 2025-09-11 09:46:00.000 56 mm [Hg] Diastolic Blood Pressure 2025-09-10 13:24:00.000 62 mm [Hg] Diastolic Blood Pressure 2025-09-06 09:11:00.000 64 mm [Hg] Diastolic Blood Pressure 2025-09-05 10:26:00.000 60 mm [Hg] Diastolic Blood Pressure 2025-09-04 14:10:00.000 60 mm [Hg] Diastolic Blood Pressure 2025-09-04 09:25:00.000 60 mm [Hg] Diastolic Blood Pressure 2025-08-30 08:54:00.000 [...] CONSULTING PHYSICIANS RN TO OBSERVE AND ASSESS, CUSTOMER SERVICE VOICE/WASTEWATER MANAGER TO OBSERVE FOR RISK FOR FALLS AND INSTRUCT IN FALL PREVENTION, HOME SAFETY, MEDICATION MANAGEMENT, INFECTION PREVENTION, AND NUTRITION MANAGEMENT. RN/CUSTOMER SERVICE VOICE/WASTEWATER MANAGER NURSE MAY PERFORM O2 SATURATION LEVEL ON ADMISSION AND PRN FOR RN TO ASSESS/CUSTOMER SERVICE VOICE TO OBSERVE PATIENT, WITH NOTIFICATION TO THE PHYSICIAN IF SATURATION IS 90% IN THE ABSENCE OF MORE SPECIFIC PARAMETERS FROM THE PHYSICIAN. AGENCY MAY PERFORM A RESUMPTION OF CARE VISIT FOLLOWING ANY HOSPITAL ADMISSION. RN/CUSTOMER SERVICE VOICE/WASTEWATER MANAGER TO MONITOR CO-MORBID CONDITIONS LISTED ON THE PLAN OF CARE AND ANY NEW CONDITIONS THAT PRESENT THEMSELVES DURING THIS EPISODE TO IDENTIFY CHANGES AND INTERVENE TO MINIMIZE COMPLICATIONS. [code = RN TO OBSERVE, ASSESS, EVALUATE, AND DEVELOP AN INDIVIDUALIZED PLAN OF CARE. AGENCY MAY ACCEPT ORDERS FROM CONSULTING PHYSICIANS RN TO OBSERVE AND ASSESS, CUSTOMER SERVICE VOICE/WASTEWATER MANAGER TO OBSERVE FOR RISK FOR FALLS AND INSTRUCT IN FALL PREVENTION, HOME SAFETY, MEDICATION MANAGEMENT, INFECTION PREVENTION, AND NUTRITION MANAGEMENT. RN/CUSTOMER SERVICE VOICE/WASTEWATER MANAGER NURSE MAY PERFORM O2 SATURATION LEVEL ON ADMISSION AND PRN FOR RN TO ASSESS/CUSTOMER SERVICE VOICE TO OBSERVE PATIENT, WITH NOTIFICATION TO THE PHYSICIAN IF SATURATION IS 90% IN THE ABSENCE OF MORE SPECIFIC PARAMETERS FROM THE PHYSICIAN. AGENCY MAY PERFORM A RESUMPTION OF CARE VISIT FOLLOWING ANY HOSPITAL ADMISSION. RN/CUSTOMER SERVICE VOICE/WASTEWATER MANAGER TO MONITOR CO-MORBID CONDITIONS LISTED ON THE PLAN OF CARE AND ANY NEW CONDITIONS THAT PRESENT THEMSELVES DURING THIS EPISODE TO IDENTIFY CHANGES AND INTERVENE TO MINIMIZE COMPLICATIONS.] Future Scheduled Test MEDICATION MANAGEMENT; RN/CUSTOMER SERVICE VOICE/WASTEWATER MANAGER TO REVIEW MEDICATIONS FOR INTERACTIONS, EFFECTIVENESS OF DRUG THERAPY, AND SIGNS/SYMPTOMS OF ADVERSE REACTIONS. MAY INSTRUCT AND REINFORCE MEDICATION TEACHING RELATED TO THE USE OF MEDICATIONS, DOSAGE, FREQUENCY, PURPOSE, SIDE EFFECTS, AND TO REPORT COMPLICATIONS. [code = MEDICATION MANAGEMENT; RN/CUSTOMER SERVICE VOICE/WASTEWATER MANAGER TO REVIEW MEDICATIONS FOR INTERACTIONS, EFFECTIVENESS OF DRUG THERAPY, AND SIGNS/SYMPTOMS OF ADVERSE REACTIONS. MAY INSTRUCT AND REINFORCE MEDICATION TEACHING RELATED TO THE USE OF MEDICATIONS, DOSAGE, FREQUENCY, PURPOSE, SIDE EFFECTS, AND TO REPORT COMPLICATIONS.] Future Scheduled Test RISK FOR H OSPITALIZATION; RN TO ASSESS/TEACH, WASTEWATER MANAGER/CUSTOMER SERVICE VOICE TO OBSERVE/TEACH PATIENT/CAREGIVER ON RISK FOR HOSPITALIZATION/EMERGENCY ROOM VISITS, TEACH SIGNS AND SYMPTOMS THAT PUT PATIENT AT RISK, WHEN TO NOTIFY NURSE/PHYSICIAN OF COMPLICATIONS/DECLINE, AND WHEN TO CALL 911. [code = RISK FOR HOSPITALIZATION; RN TO ASSESS/TEACH, WASTEWATER MANAGER/CUSTOMER SERVICE VOICE TO OBSERVE/TEACH PATIENT/CAREGIVER ON RISK FOR HOSPITALIZATION/EMERGENCY ROOM VISITS, TEACH SIGNS AND SYMPTOMS THAT PUT PATIENT AT RISK, WHEN TO NOTIFY NURSE/PHYSICIAN OF COMPLICATIONS/DECLINE, AND WHEN TO CALL 911.] Future Scheduled Test CARDIOVASC ULAR SYSTEM; RN TO ASSESS/TEACH, CUSTOMER SERVICE VOICE/WASTEWATER MANAGER TO OBSERVE/TEACH RELATED TO ALTERED CARDIOVASCULAR STATUS TO MINIMIZE COMPLICATIONS AND REDUCE HOSPITALIZATION. [code = CARDIOVASCULAR SYSTEM; RN TO ASSESS/TEACH, CUSTOMER SERVICE VOICE/WASTEWATER MANAGER TO OBSERVE/TEACH RELATED TO ALTERED CARDIOVASCULAR STATUS TO MINIMIZE COMPLICATIONS AND REDUCE HOSPITALIZATION.] Future Scheduled Test HEART FAIL URE; RN TO ASSESS/TEACH, CUSTOMER SERVICE VOICE/WASTEWATER MANAGER TO OBSERVE/TEACH CARDIOPULMONARY SYSTEM TO IDENTIFY SIGNS [...] [code = HEART FAILURE; RN TO ASSESS/TEACH, CUSTOMER SERVICE VOICE/WASTEWATER MANAGER TO OBSERVE/TEACH CARDIOPULMONARY SYSTEM TO IDENTIFY SIGNS [...] ON MANAGEMENT; RN TO ASSESS AND TEACH, CUSTOMER SERVICE VOICE/WASTEWATER MANAGER TO OBSERVE AND TEACH WARNING SIGNS AND SYMPTOMS TO AVOID HOSPITALIZATION. [code = HYPERTENSION MANAGEMENT; RN TO ASSESS AND TEACH, CUSTOMER SERVICE VOICE/WASTEWATER MANAGER TO OBSERVE AND TEACH WARNING SIGNS AND SYMPTOMS TO AVOID HOSPITALIZATION.] Future Scheduled Test PAIN MANAG EMENT; RN TO ASSESS AND TEACH, WASTEWATER MANAGER/CUSTOMER SERVICE VOICE TO OBSERVE AND TEACH AND PROVIDE EDUCATION ON PAIN MANAGEMENT TECHNIQUES. [code = PAIN MANAGEMENT; RN TO ASSESS AND TEACH, WASTEWATER MANAGER/CUSTOMER SERVICE VOICE TO OBSERVE AND TEACH AND PROVIDE EDUCATION ON PAIN MANAGEMENT TECHNIQUES.] Future Scheduled Test FALL REDUC TION MANAGEMENT; RN TO ASSESS AND OBSERVE, CUSTOMER SERVICE VOICE/WASTEWATER MANAGER TO OBSERVE FALL RISK FACTORS AND EDUCATE PATIENT/CAREGIVER ON STRATEGIES TO MINIMIZE THE RISK OF FALLING. [code = FALL REDUCTION MANAGEMENT; RN TO ASSESS AND OBSERVE, CUSTOMER SERVICE VOICE/WASTEWATER MANAGER TO OBSERVE FALL RISK FACTORS AND EDUCATE PATIENT/CAREGIVER ON STRATEGIES TO MINIMIZE THE RISK OF FALLING.] Future Scheduled Test NEUROLOGIC AL SYSTEM MANAGEMENT; RN TO ASSESS AND TEACH, WASTEWATER MANAGER/CUSTOMER SERVICE VOICE TO OBSERVE AND TEACH RELATED TO ALTERED NEUROLOGICAL STATUS TO MINIMIZE COMPLICATIONS AND REDUCE HOSPITALIZATION. [code = NEUROLOGICAL SYSTEM MANAGEMENT; RN TO ASSESS AND TEACH, WASTEWATER MANAGER/CUSTOMER SERVICE VOICE TO OBSERVE AND TEACH RELATED TO ALTERED NEUROLOGICAL STATUS TO MINIMIZE COMPLICATIONS AND REDUCE HOSPITALIZATION.] Future Scheduled Test CEREBRAL V ASCULAR ACCIDENT MANAGEMENT; RN/WASTEWATER MANAGER/CUSTOMER SERVICE VOICE TO PROVIDE SKILLED TEACHING AND MANAGEMENT OF POST CEREBRAL VASCULAR ACCIDENT. [code = CEREBRAL VASCULAR ACCIDENT MANAGEMENT; RN/WASTEWATER MANAGER/CUSTOMER SERVICE VOICE TO PROVIDE SKILLED TEACHING AND MANAGEMENT OF POST CEREBRAL VASCULAR ACCIDENT.] Future Scheduled Test DIABETES M ANAGEMENT; RN TO ASSESS AND TEACH, WASTEWATER MANAGER/CUSTOMER SERVICE VOICE TO OBSERVE AND TEACH INSTRUCTIONS OF DIABETIC CARE TO INCLUDE: DIET CCHO, CARDIAC SKIN CARE, SIGNS AND SYMPTOMS OF HYPO/HYPERGLYCEMIA, PROPER ADMINISTRATION OF DIABETIC MEDICATION. RN/WASTEWATER MANAGER/CUSTOMER SERVICE VOICE TO INSTRUCT ON DIABETIC FOOT CARE AND MONITOR FOR SKIN LESIONS ON LOWER EXTREMITIES. BLOOD GLUCOSE TESTING 3X DAILY. RN TO ASSESS AND TEACH, WASTEWATER MANAGER/CUSTOMER SERVICE VOICE TO OBSERVE AND TEACH PATIENT/CAREGIVER ABILITY TO PERFORM AND RECORD BLOOD GLUCOSE TESTING ORDERED AND TO REPORT ABNORMAL FINDINGS TO PHYSICIAN. RN/WASTEWATER MANAGER/CUSTOMER SERVICE VOICE MAY PERFORM BLOOD GLUCOSE TEST NEEDED. RN/WASTEWATER MANAGER/CUSTOMER SERVICE VOICE TO REPORT TO PHYSICIAN BLOOD GLUCOSE READINGS GREATER THAN 200 OR LESS THAN 70 RN/WASTEWATER MANAGER/CUSTOMER SERVICE VOICE TO INSTRUCT PATIENT ON IMPORTANCE OF HGBA1C MONITORING, KIDNEY FUNCTION TEST, EYE AND FOOT EXAMS. [code = DIABETES MANAGEMENT; RN TO ASSESS AND TEACH, WASTEWATER MANAGER/CUSTOMER SERVICE VOICE TO OBSERVE AND TEACH INSTRUCTIONS OF DIABETIC CARE TO INCLUDE: DIET CCHO, CARDIAC SKIN CARE, SIGNS AND SYMPTOMS OF HYPO/HYPERGLYCEMIA, PROPER ADMINISTRATION OF DIABETIC MEDICATION. RN/WASTEWATER MANAGER/CUSTOMER SERVICE VOICE TO INSTRUCT ON DIABETIC FOOT CARE AND MONITOR FOR SKIN LESIONS ON LOWER EXTREMITIES. BLOOD GLUCOSE TESTING 3X DAILY. RN TO ASSESS AND TEACH, WASTEWATER MANAGER/CUSTOMER SERVICE VOICE TO OBSERVE AND TEACH PATIENT/CAREGIVER ABILITY TO PERFORM AND RECORD BLOOD GLUCOSE TESTING ORDERED AND TO REPORT ABNORMAL FINDINGS TO PHYSICIAN. RN/WASTEWATER MANAGER/CUSTOMER SERVICE VOICE MAY PERFORM BLOOD GLUCOSE TEST NEEDED. RN/WASTEWATER MANAGER/CUSTOMER SERVICE VOICE TO REPORT TO PHYSICIAN BLOOD GLUCOSE READINGS GREATER THAN 200 OR LESS THAN 70 RN/WASTEWATER MANAGER/CUSTOMER SERVICE VOICE TO INSTRUCT PATIENT ON IMPORTANCE OF HGBA1C MONITORING, KIDNEY FUNCTION TEST, EYE AND FOOT EXAMS.] Future Scheduled Test RN/CUSTOMER SERVICE VOICE/WASTEWATER MANAGER TO PERFORM/TEACH PATIENT/CAREGIVER WOUND CARE TO SUPERFICIAL TRAUMA TO LEFT ANTERIOR SKIN CLEANSE WITH WOUNDCLEANSER, APPLY COLLAGEN COVER WITH OPTIFOAM CHANGE DRESSING TWICE WEEKLY AND PRN FOR SOILAGE OR DISPLACEMENT TO DO TREATMENT IN NURSING ABSENCE [code = RN/CUSTOMER SERVICE VOICE/WASTEWATER MANAGER TO PERFORM/TEACH PATIENT/CAREGIVER WOUND CARE TO SUPERFICIAL [...] TO EVALUATE, OBSERVE / ASSESS, AND MONITOR, DEAN FOR STUDENT AFFAIRS TO OBSERVE AND MONITOR, PROVIDE SKILLED THERAPEUTIC INTERVENTION, ACTIVITY, EDUCATION, AND TRAINING TO ADDRESS; BATHING/SHOWERING (OT/KELSEA) DRESSING (OT/DEAN FOR STUDENT AFFAIRS) BED TRANSFERS (OT/KELSEA) TOILET TRANSFER (OT/DEAN FOR STUDENT AFFAIRS) BATH/SHOWER TRANSFER (OT/KELSEA) ADAPTIVE EQUIPMENT/DURABLE MEDICAL EQUIPMENT MANAGEMENT(OT/KELSEA) HOME ACTIVITY / EXERCISE PROGRAM (OT/DEAN FOR STUDENT AFFAIRS) POSTURAL CONTROL/BALANCE (OT/KELSEA) THERAPEUTIC EXERCISE (OT/DEAN FOR STUDENT AFFAIRS) OT/KELSEA TO MONITOR AND EDUCATE ON OXYGEN SATURATION DURING ADLS/IADLS, NOTIFY PHYSICIAN AND/OR THE RN CLINICAL MENTAL HEALTH ASSOCIATE FOR PHYSICIAN NOTIFICATION AND IF O2 SATS BELOW 90% AFTER 10 MIN OF REST. OT/KELSEA MAY EDUCATE ON PAIN MANAGEMENT CLINICALLY INDICATED. OT / DEAN FOR STUDENT AFFAIRS TO EDUCATE ON CVA SELF-MANAGEMENT [code = SPEECH THERAPIST TO EVALUATE FOR SPEECH AND SWALLOWING DIFFICULTIES. AGENCY MAY PERFORM A RESUMPTION OF CARE VISIT FOLLOWING ANY HOSPITAL ADMISSION. OT TO EVALUATE, OBSERVE / ASSESS, AND MONITOR, DEAN FOR STUDENT AFFAIRS TO OBSERVE AND MONITOR, PROVIDE SKILLED THERAPEUTIC INTERVENTION, ACTIVITY, EDUCATION, AND TRAINING TO ADDRESS; BATHING/SHOWERING (OT/KELSEA) DRESSING (OT/KELSEA) BED TRANSFERS (OT/KELSEA) TOILET TRANSFER (OT/KELSEA) BATH/SHOWER TRANSFER (OT/DEAN FOR STUDENT AFFAIRS) ADAPTIVE EQUIPMENT/DURABLE MEDICAL EQUIPMENT MANAGEMENT(OT/DEAN FOR STUDENT AFFAIRS) HOME ACTIVITY / EXERCISE PROGRAM (OT/DEAN FOR STUDENT AFFAIRS) POSTURAL CONTROL/BALANCE (OT/DEAN FOR STUDENT AFFAIRS) THERAPEUTIC EXERCISE (OT/DEAN FOR STUDENT AFFAIRS) OT/DEAN FOR STUDENT AFFAIRS TO MONITOR AND EDUCATE ON OXYGEN SATURATION DURING ADLS/IADLS, NOTIFY PHYSICIAN AND/OR THE RN CLINICAL MENTAL HEALTH ASSOCIATE FOR PHYSICIAN NOTIFICATION AND IF O2 SATS BELOW 90% AFTER 10 MIN OF REST. OT/DEAN FOR STUDENT AFFAIRS MAY EDUCATE ON PAIN MANAGEMENT CLINICALLY INDICATED. OT / DEAN FOR STUDENT AFFAIRS TO EDUCATE ON CVA SELF-MANAGEMENT] Goal 2025-10-02 Patient Goal - G ET BACK TO NORMAL MUCH POSSIBLE, WALKING WITHOUT A DEVICE, SPEECH BETTER, COOKING, HOUSEWORK Goal Patient Goal - G ET BACK TO NORMAL MUCH POSSIBLE, WALKING WITHOUT A DEVICE, SPEECH BETTER, COOKING, HOUSEWORK, HAVE DERMATOLOGY SURGERY TO LEFT TORRES AND HEAL Goal Provider Goal - A PLAN OF [...] AND LIFE-STYLE CHANGES BY END OF EPISODE. Progress Notes Progress Notes <paragraph>[Visit Date: 2024 by ROLO CALIX RN]:</paragraph><paragraph>SNV FOR RECERTIFICATION </paragraph><paragraph></paragraph><paragraph>PATIENT NEEDS CONTINUED SHELTER SERVICES FOR WOUND MANAGEMENT, STROKE MANAGEMENT, AND POST SURGICAL MANAGEMENT. PATIENT HAS A BASAL CELL CARCINOMA TO HER LEFT TORRES, SHE WILL BE GETTING A MOHS PROCEDURE NEXT MONTH AND WILL NEED ASSISTANCE WITH AFTERCARE. PATIENT ALSO CONTINUES TO SLOWLY IMPROVE FROM HER STROKE. PATIENT SPEEVH CONTINUES TO BE GARBLED, BUT SHE IS ABLE TO CONTROL HER SALIVA MOST OF THE TIME NOW. REPORTING WHEN SHE IS TIRED SHE STILL GAS TROUBLE WITH DROOLING. PATIENT ALSO IS GAINING BACK SOME STRENGTH, TRYING THE CANE, WITH HER HUSBANDS ASSISTANCE. PATIENT STILL HAS A BALANCE DEFICIT, BUT IT IS IMPROVING. PATIENT IS DOING MORE OF HER ADLS WELL, BUT STILL NEEDS HER HUSBANDS ASSISTANCE. REVIEWED IMPORTANCE OF DIET, PATIENT MD ADDED NEW ORAL DIABETIC TO GET A1C LOWER. REPORTS HER BLOOD SUGARS HAVE DROPPED FROM THE 150'S TO THE 130'S. REVIEWED FALL PRECAUTIONS, DIABETIC PRECAUTIONS, BLEEDING PRECAUTIONS, STROKE PRECAUTIONS, WHEN TO CALL [facility], AND WHEN TO CALL 911. PATIENT CONTINUES TO BE HOMEBOUND DUE TO WEAKNESS, SHORTNESS OF BREATH WITH AMBULATION, AND NEEDING CONSTANT HUMAN ASSISTANCE/SUPERVISION.</paragraph> Encounters Start Date/Time End Date/Time Encounter Type Admission Type Attending [facility] Care Department Encounter ID Discharge Date Discharge Status Discharge Condition Discharge Reason Percent Goals Met 2025-08-08 00:00:00 2025-10-06 00:00:00 Outpatient NEW ADMISSION [facility] [id number]
== END 2025-10-04 15:38 | disposition home or self-care (01) ==
LOC: HO.HKA 15:13
PROVIDERS: PCP Student in an Organized Health Care Education/Training Program; Visit Provider Internal Medicine Hypertension Specialist
DX: I50.9 Heart failure, unspecified (principal); I12.9 Hypertensive chronic kidney disease with stage 1 through stage 4 chronic kidney disease, or unspecified chronic kidney disease; N18.9 Chronic kidney disease, unspecified; D63.1 Anemia in chronic kidney disease
CPT/HCPCS: 99204

== ENCOUNTER → 2025-10-04 15:13 | Outpatient (BNVA) | payer MEDICARE, SELFPAY | PROVIDERS: PCP Student in an Organized Health Care Education/Training Program; Visit Provider Internal Medicine Hypertension Specialist | DX: I13.0 Hypertensive heart and chronic kidney disease with heart failure and stage 1 through stage 4 chronic kidney disease, or unspecified chronic kidney disease (principal); E11.22 Type 2 diabetes mellitus with diabetic chronic kidney disease; N18.4 Chronic kidney disease, stage 4 (severe); Z79.84 Long term (current) use of oral hypoglycemic drugs; D63.1 Anemia in chronic kidney disease; Z79.82 Long term (current) use of aspirin; C44.91 Basal cell carcinoma of skin, unspecified; Z86.73 Personal history of transient ischemic attack (TIA), and cerebral infarction without residual deficits | CPT/HCPCS: 99202 ==